=== PATIENT | male | born 1960 | race Caucasian/White ===

== ENCOUNTER → 2016-10-17 | Outpatient (CLI) | payer MEDICARE, OTHER ==
[2016-10-17 14:22] VITALS: BP 107/62; PULSE 78; RESP 16; TEMP 98.6
--- NOTE | 2016-10-17 14:36 | P.PN ---
Progress Note - Text Patient returns for followup for chronic back pain with radiation to both legs. Patient recently underwent LESI x 2, which provided some relief for 3-4 weeks ' interval apiece, but primarily helped with patient's ability to walk and did not help significantly with his pain. Patient continues on [place] medications for pain from Dr. Dillard with good relief. Patient denies adverse drug effects from medications. Today, pt denies new-onset weakness, bowel/bladder incontinence, or any other signs or symptoms of cauda equina syndrome. There are no signs of acute intoxication, and no indications of medication diversion or overuse. In addition to above, 13-point review of systems is also negative for chest pain , shortness of breath, changes in vision, changes in hearing, new onset weakness , abdominal pain, diarrhea, extreme fatigue, malaise, fever, skin changes, homicidal or suicidal ideation, or bowel or bladder incontinence. Vital Signs: Reviewed in EMR Gen: WDWN, AAOx3, NAD HEENT: NCAT, EOMI, hearing grossly normal Pulm: resp unlabored Abd: soft, NT, ND Neck: supple, trachea midline ROM in flexion lumbar spine: reduced ROM in extension lumbar spine: reduced Lumbar paravertebral tenderness: + Facet loading: ++ bilateral SI joint tenderness: + North's test: ++ bilateral Straight leg raise: + RLE Neuro: CN II-XII grossly intact, muscle strength lower extremities PRESERVED Imaging: Reviewed in EMR Assessment: 1. lumbar radiculopathy 2. sacroiliitis 3. lumbar DDD Plan: 1. Explanation: Opioid and psychological risk scores were reviewed. Diagnoses , prognoses, and multiple treatment options including but not limited to physical therapy, interventional therapies, adjuvant medical therapies, narcotic medication therapies, and surgery were discussed with the patient and all questions were answered to the patient's satisfaction. 2. Opioid agreement: no opioids prescribed 3. Counseling: The patient was counseled extensively on SMOKING CESSATION, BODY MASS INDEX, EXERCISE. Specifically, the patient was instructed regarding the importance of smoking cessation, obesity, and exercise in the context of both chronic pain and overall health. 4. Procedures: bilateral SIJ injection x 2 5. Consultations: None 6. Investigations: None 7. Medications: none for now; if Dr. Dillard does not want to prescribe medications anymore, I told patient we would not be able to give him more than 3 [place] pills per day. Patient verbalized understanding. 8. Disposition: f/u for procedure as scheduled PQRS measures: 1-Patient's medications are documented in the chart. 2-Tobacco use is negative 3-Patient has not had a pneumococcal vaccine. 4-Advanced care planning discussed, patient unable to give. 5-Opioid contract NOT signed with the patient as he gets medications from Dr. Dillard. 6-Pain positive, follow-up visit or procedure scheduled 7-Patient's blood pressure measured and documented, and WNL. 8-Patient's weight was measured, and body mass index ABOVE the normal limits, and counseling was done. Patient instructed to follow up with PCP. 9-Patient WAS NOT identified as an unhealthy alcohol user.
== END | disposition home or self-care (01) ==
LOC: PNWHC3 13:08
PROVIDERS: ATTEND Anesthesiology
DX: M54.16 Radiculopathy, lumbar region (principal); M46.1 Sacroiliitis, not elsewhere classified; M51.36 Other intervertebral disc degeneration, lumbar region; Z79.899 Other long term (current) drug therapy
CPT/HCPCS: 99211

== ENCOUNTER → 2016-10-26 | Outpatient (CLI) | payer MEDICARE, OTHER ==
[2016-10-26 09:36] LABS: CH 29.5; CHCM 31.7; HCT 40.2 % (39.0-53.0); HDW 3.22; HGB 12.7 gm/dL (13.0-17.5); Hypochromasia Slight; MCH 29.6 pg (25.0-35.0); MCHC 31.6 g/dL (31.0-37.0); MCV 93.5 fL (80.0-100.0); Mean Platelet Volume 6.7; RDW 15.6 % (11.5-15.5); WBC 13.5 k/uL (3.8-10.6)
[2016-10-26 12:29] LABS: Erythrocyte Sedimentation Rate 72 mm/hr (0-15)
[2016-10-29 16:07] LABS: Gliadin AB IgA, Deaminated 4 UNITS (<20); Gliadin AB IgG, Deaminated 4 UNITS (<20)
== END | disposition home or self-care (01) ==
LOC: LABWHC1 09:06
PROVIDERS: ATTEND Internal Medicine Gastroenterology
DX: K52.9 Noninfective gastroenteritis and colitis, unspecified (principal)
CPT/HCPCS: 36415; 83516; 85027; 85652; 86140

== ENCOUNTER → 2016-11-13 | Outpatient (CLI) | payer MEDICARE, OTHER ==
--- NOTE | 2016-11-13 14:31 | XR ---
EXAM TYPE: LUMBAR SPINE X RAY SERIES COMPARISON: 06/25/2015 HISTORY: Pain FINDINGS: Postsurgical changes at L3-L4 with minimal anterolisthesis of L4 on L5. Postsurgical changes also L4- L5. There is loss of disc space at both levels Severe degenerative disc disease at L5-S1. Retrolisthe sis L2 on L3 and L3 on L4 is stable. Transpedicular screw at L4 near the disc space level along the u pper margin of the L4 vertebral body. Correlate clinically. IMPRESSION: 1. Extensive postoperative changes with a minimal anterolisthesis of L4 on L5. See above.
== END | disposition home or self-care (01) ==
LOC: RADXRMAIN 13:46
DX: M43.16 Spondylolisthesis, lumbar region (principal); Z98.890 Other specified postprocedural states
CPT/HCPCS: 72100

== ENCOUNTER → 2016-11-27 | Outpatient (CLI) | payer MEDICARE, OTHER ==
[2016-11-27 11:20] LABS: EKG EKG PERFORMED
[2016-11-27 11:43] LABS: Basophils % (A) 0 %; CH 28.6; CHCM 30.7; Eosinophils % (A) 0 %; HCT 39.3 % (39.0-53.0); HDW 2.95; HGB 11.9 gm/dL (13.0-17.5); Hypochromasia Moderate; Luc # (Auto) 0.17; Luc % (Auto) 2; Lymphocytes # (A) 1.2 k/uL (1.0-4.8); Lymphocytes % (A) 11 %; MCH 28.2 pg (25.0-35.0); MCHC 30.2 g/dL (31.0-37.0); MCV 93.6 fL (80.0-100.0); Mean Platelet Volume 6.2; Monocytes # (A) 0.5 k/uL (0-1.0); Monocytes % (A) 4 %; Neutrophils # (A) 8.9 k/uL (1.3-7.7); Neutrophils % (A) 83 %; RDW 14.9 % (11.5-15.5); WBC 10.8 k/uL (3.8-10.6); WBC (Perox) 11.31
[2016-11-27 11:58] LABS: INR 0.9 (<1.1); Prothrombin Time 9.6 sec (9.0-12.0)
[2016-11-27 12:00] LABS: ALT 63 U/L (21-72); AST 32 U/L (17-59); Alkaline Phosphatase 71 U/L (38-126); Anion Gap 11 mmol/L; Appearance,Urine Clear (Clear); Bilirubin,Urine Negative (Negative); Blood Urea Nitrogen 19 mg/dL (9-20); Calcium 9.1 mg/dL (8.4-10.2); Carbon Dioxide 26 mmol/L (22-30); Chloride 99 mmol/L (98-107); Glucose 174 mg/dL (74-99); Glucose,Urine (UA) Negative (Negative); Ketones,Urine Negative (Negative); Leukocyte Esterase,Urine Negative (Negative); Nitrite,Urine Negative (Negative); Non-African American GFR(MDRD) >60 (>60 ml/min/1.73 sqM); PH, Urine 5.5 (5.0-8.0); Potassium 4.5 mmol/L (3.5-5.1); Protein,Urine Negative (Negative); Sodium 136 mmol/L (137-145); Specific Gravity,Urine 1.003 (1.001-1.035); Total Bilirubin 0.4 mg/dL (0.2-1.3); Total Protein 6.4 g/dL (6.3-8.2); UA Billing (MACRO vs. MICRO) CHEM; Urobilinogen,Urine <2.0 mg/dL (<2.0)
== END | disposition home or self-care (01) ==
LOC: LABWHC1 11:06
DX: M48.00 Spinal stenosis, site unspecified (principal); Z79.01 Long term (current) use of anticoagulants
CPT/HCPCS: 36415; 80053; 81003; 85025; 85610; 85730; 93005

== ENCOUNTER 2016-12-10 14:42 | Emergency (ER) | payer MEDICARE, OTHER ==
[2016-12-10] MEDS ORDERED: ACETAMINOPHEN IV (For NPO) 1,000 MG in EMPTY BAG 1 BAG IVPB ONE (14:51)
[2016-12-10] MEDS ORDERED: SODIUM CHLORIDE 0.9% 1,000 ML IV STA (14:51)
[2016-12-10] MEDS ORDERED: KETOROLAC 30 MG/ML 1 ML VIAL IVP STA (14:51)
--- NOTE | 2016-12-10 14:55 | ED ---
Back Pain HPI - General Chief Complaint: Back Pain/Injury Stated Complaint: Back Pain/Post Op Complications Time Seen by Provider: 12/10/16 14:46 Source: patient, EMS, RN notes reviewed Limitations: no limitations - History of Present Illness Initial Comments: 56-year-old male presents to the emergency department with a chief complaint of back pain. Patient had back surgery done at [facility] on December [address] Saldana. Patient states he was discharged from the hospital yesterday to home. Patient states she was discharged with [place] pain medication. Patient states that he continues to have back pain. Patient states he's continued to have back pain ever since the procedure initially began. Patient states that he cannot tolerate the pain anymore home and he wants senior living placement or rehab placement. Patient states that he hasn't noticed any fevers chills at home. Patient denies any cough cold runny nose. Patient states that they were concerned due to the increased pain and they thought that they should be seen. Patient denies any recent fever, chills, shortness of breath, chest pain, abdominal pain, nausea vomiting, numbness or tingling, dysuria or hematuria, constipation or diarrhea, headaches or visual changes, or any other current symptoms. - Related Data Home Medications Medication Instructions Recorded Confirmed Montelukast [Singulair] 10 mg PO DAILY 06/08/14 12/10/16 Paliperidone [Invega] 6 mg PO DAILY 06/08/14 12/10/16 traZODone HCL [traZODone] 150 mg PO HS 06/08/14 12/10/16 Losartan [Cozaar] 50 mg PO DAILY 07/09/15 12/10/16 rOPINIRole HCL [Requip] 1 mg PO HS 07/09/15 12/10/16 Pravastatin Sodium [Pravachol] 20 mg PO HS 08/27/15 12/10/16 Rivaroxaban [Xarelto] 20 mg PO DAILY 12/21/15 12/10/16 Cetirizine HCl [Zyrtec] 10 mg PO DAILY 12/10/16 12/10/16 Diazepam [Valium] 5 mg PO Q6H PRN 12/10/16 12/10/16 Fluticasone/Salmeterol [Advair Hfa 2 puff INHALATION RT-BID 12/10/16 12/10/16 230-21 Mcg Inhaler] Furosemide [Lasix] 20 mg PO DAILY 12/10/16 12/10/16 Loperamide [Imodium] 2 mg PO QID 12/10/16 12/10/16 Omeprazole 20 mg PO DAILY 12/10/16 12/10/16 Roflumilast [Daliresp] 500 mcg PO DAILY 12/10/16 12/10/16 Umeclidinium Rock [Incruse 1 puff INHALATION RT-DAILY 12/10/16 12/10/16 Ellipta] oxyCODONE-APAP 10-325MG [Percocet 1 - 2 tab PO Q4H PRN 12/10/16 12/10/16 10-325 mg] predniSONE 20 mg PO DAILY 12/10/16 12/10/16 Allergies Allergy/AdvReac Type Severity Reaction Status Date / Time ibuprofen [From Motrin] Allergy Unknown Verified 12/10/16 15:55 Penicillins Allergy "PASSED Verified 12/10/16 15:55 OUT", SOB Review of Systems ROS Statement: Those systems with pertinent positive or pertinent negative responses have been documented in the HPI. ROS Other: All systems not noted in ROS Statement are negative. Past Medical History Past Medical History: Asthma, COPD, Deep Vein Thrombosis (DVT), GERD/Reflux, Hyperlipidemia, Hypertension, Musculoskeletal Disorder, Pneumonia, Pulmonary Embolus (PE) Additional Past Medical History / Comment(s): uses oxygen @ home at night time. Pt. states he has blood clots in lungs - sees Dr. Ralph for this. Pt. states in July he passed out at work and was in a coma for three days; was hospitalized and stated it wasn't found out why he passed out but was started on blood thinners. States he spent 1 month in a senior living re-learning to walk. RECENT HOSPITALIZATION AT [facility] FOR PNEUMONIA AND "INTESTINE INFECTION". History of Any Multi-Drug Resistant Organisms: C-DIFF Date of last positivie culture/infection: OCTOBER 2016 MDRO Source:: INTESTINE Past Surgical History: Back Surgery, Hernia Repair, Orthopedic Surgery Additional Past Surgical History / Comment(s): neck & shoulder & elbow surg., STOMACH SURGERY. Back surgery x 4 - last surgery February 2015 Past Anesthesia/Blood Transfusion Reactions: No Reported Reaction Additional Past Anesthesia/Blood Transfusion Reaction / Comment(s): couldn't urinate after a surgery, Past Psychological History: Anxiety, Schizophrenia Smoking Status: Former smoker Past Alcohol Use History: None Reported Additional Past Alcohol Use History / Comment(s): QUIT SMOKING JUL 2014, STARTED SMOKING AT AGE 14/ 1PPD Past Drug Use History: None Reported - Past Family History Mother History Unknown: Yes Family Medical History: Cancer, CVA/TIA Additional Family Medical History / Comment(s): breast cancer General Exam - General Exam Comments Initial Comments: General: The patient is awake and alert, in no distress, and does not appear acutely ill. Eye: Pupils are equal, round and reactive to light, extra-ocular movements are intact; there is normal conjunctiva bilaterally. No signs of icterus. Ears, nose, mouth and throat: There are moist mucous membranes and no oral lesions. Neck: The neck is supple, there is no tenderness. Cardiovascular: There is a regular rate and rhythm. No murmur, rub or gallop is appreciated. Respiratory: Lungs are clear to auscultation, respirations are non-labored, breath sounds are equal. No wheezes, stridor, rales, or rhonchi. Gastrointestinal: Soft, non-distended, non-tender abdomen without masses or organomegaly noted. There is no rebound or guarding present. No CVA tenderness. Bowel sounds are unremarkable. Back: Inches and through the upper lumbar lower thoracic spine there is some bleeding noted no induration redness. There is no tenderness to palpation in the midline. There is no obvious deformity. No rashes noted. Musculoskeletal: Normal ROM, no tenderness, There is no pedal edema. There is no calf tenderness or swelling. Sensation intact. Pulses equal bilaterally 2+. Neurological: CN II-XII intact, There are no obvious motor or sensory deficits. Coordination appears grossly intact. Speech is normal. Skin: Skin is warm and dry and no rashes or lesions are noted. Psychiatric: Cooperative, appropriate mood & affect, normal judgment. Limitations: no limitations Course Vital Signs 12/10/16 12/10/16 12/10/16 14:44 15:47 16:36 Temperature 99.0 F 98.3 F Pulse Rate 113 H 110 H 101 H Respiratory 112 H 16 18 Rate Blood Pressure 112/60 114/62 O2 Sat by Pulse 92 L 97 95 Oximetry 12/10/16 17:30 Temperature Pulse Rate 99 Respiratory 18 Rate Blood Pressure O2 Sat by Pulse 95 Oximetry Medical Decision Making - Medical Decision Making 56-year-old male presents emergency Department chief complaint of back pain. At this time patient's laboratory is reviewed that does show a mild monica and a mildly elevated white blood cell count. Patient was checked for signs of infection that there does not appear to be any he has some leaking from the incision site. At this time patient continues to request for pain medication due to the fact that his pain is 10 out of 10. Patient did present tachycardic however after receiving the medication his heart rate did decrease. At this time Dr. Dillard was consulted via telephone about the patient's case. At this time he states Patient Take One to 2 of His Percocet As Needed for Pain and Continue the Valium. Patient Has Been Taking These. HEENT We Discussed We Will Give Him 1 More Dose of Pain Medication. Follow-Up with Local to the Office in the Morning to Set up for Home Nursing and Home PT. The Patient Stated He Understood He Is in Agreement Plan and All Questions Have Been Answered. Patient Will Be Discharged. - Lab Data Result diagrams: 12/10/16 15:05 12/10/16 15:05 Lab Results 12/10/16 12/10/16 12/10/16 Range/Units 15:05 15:05 15:05 WBC 10.9 H (3.8-10.6) k/uL RBC 4.05 L (4.30-5.90) m/uL Hgb 11.3 L (13.0-17.5) gm/dL Hct 35.6 L (39.0-53.0) % MCV 87.8 D (80.0-100.0) fL MCH 27.8 (25.0-35.0) pg MCHC 31.7 (31.0-37.0) g/dL RDW 14.6 (11.5-15.5) % Plt Count 292 (150-450) k/uL Neutrophils % 73 % Lymphocytes % 19 % Monocytes % 6 % Eosinophils % 0 % Basophils % 1 % Neutrophils # 7.9 H (1.3-7.7) k/uL Lymphocytes # 2.0 (1.0-4.8) k/uL Monocytes # 0.6 (0-1.0) k/uL Eosinophils # 0.0 (0-0.7) k/uL Basophils # 0.1 (0-0.2) k/uL Sodium 133 L (137-145) mmol/L Potassium 4.2 (3.5-5.1) mmol/L Chloride 95 L (98-107) mmol/L Carbon Dioxide 27 (22-30) mmol/L Anion Gap 11 mmol/L BUN 16 (9-20) mg/dL Creatinine 0.65 L (0.66-1.25) mg/dL Est GFR (MDRD) Af Amer >60 (>60 ml/min/1.73 sqM) Est GFR (MDRD) Non-Af >60 (>60 ml/min/1.73 sqM) Glucose 104 H (74-99) mg/dL Plasma Lactic Acid Carlos 1.5 (0.7-2.0) mmol/L Calcium 9.0 (8.4-10.2) mg/dL Total Bilirubin 0.7 (0.2-1.3) mg/dL AST 35 (17-59) U/L ALT 30 (21-72) U/L Alkaline Phosphatase 47 (38-126) U/L Total Protein 6.3 (6.3-8.2) g/dL Albumin 3.3 L (3.5-5.0) g/dL Urine Color Urine Appearance (Clear) Urine pH (5.0-8.0) Ur Specific [place] (1.001-1.035) Urine Protein (Negative) Urine Glucose (UA) (Negative) Urine Ketones (Negative) Urine Blood (Negative) Urine Nitrate (Negative) Urine Bilirubin (Negative) Urine Urobilinogen (<2.0) mg/dL Ur Leukocyte Esterase (Negative) Urine Opiates Screen (NotDetected) Ur Oxycodone Screen (NotDetected) Urine Methadone Screen (NotDetected) Ur Propoxyphene Screen (NotDetected) Ur Barbiturates Screen (NotDetected) U Tricyclic Antidepress (NotDetected) Ur Phencyclidine Scrn (NotDetected) Ur Amphetamines Screen (NotDetected) U Methamphetamines Scrn (NotDetected) U Benzodiazepines Scrn (NotDetected) Urine Cocaine Screen (NotDetected) U Marijuana (THC) Screen (NotDetected) 12/10/16 Range/Units 15:05 WBC (3.8-10.6) k/uL RBC (4.30-5.90) m/uL Hgb (13.0-17.5) gm/dL Hct (39.0-53.0) % MCV (80.0-100.0) fL MCH (25.0-35.0) pg MCHC (31.0-37.0) g/dL RDW (11.5-15.5) % Plt Count (150-450) k/uL Neutrophils % % Lymphocytes % % Monocytes % % Eosinophils % % Basophils % % Neutrophils # (1.3-7.7) k/uL Lymphocytes # (1.0-4.8) k/uL Monocytes # (0-1.0) k/uL Eosinophils # (0-0.7) k/uL Basophils # (0-0.2) k/uL Sodium (137-145) mmol/L Potassium (3.5-5.1) mmol/L Chloride (98-107) mmol/L Carbon Dioxide (22-30) mmol/L Anion Gap mmol/L BUN (9-20) mg/dL Creatinine (0.66-1.25) mg/dL Est GFR (MDRD) Af Amer (>60 ml/min/1.73 sqM) Est GFR (MDRD) Non-Af (>60 ml/min/1.73 sqM) Glucose (74-99) mg/dL Plasma Lactic Acid Carlos (0.7-2.0) mmol/L Calcium (8.4-10.2) mg/dL Total Bilirubin (0.2-1.3) mg/dL AST (17-59) U/L ALT (21-72) U/L Alkaline Phosphatase (38-126) U/L Total Protein (6.3-8.2) g/dL Albumin (3.5-5.0) g/dL Urine Color Light Yellow Urine Appearance Clear (Clear) Urine pH 5.5 (5.0-8.0) Ur Specific [place] 1.007 (1.001-1.035) Urine Protein Negative (Negative) Urine Glucose (UA) Negative (Negative) Urine Ketones 1+ H (Negative) Urine Blood Negative (Negative) Urine Nitrate Negative (Negative) Urine Bilirubin Negative (Negative) Urine Urobilinogen <2.0 (<2.0) mg/dL Ur Leukocyte Esterase Negative (Negative) Urine Opiates Screen Not Detected (NotDetected) Ur Oxycodone Screen Detected H (NotDetected) Urine Methadone Screen Not Detected (NotDetected) Ur Propoxyphene Screen Not Detected (NotDetected) Ur Barbiturates Screen Not Detected (NotDetected) U Tricyclic Antidepress Not Detected (NotDetected) Ur Phencyclidine Scrn Not Detected (NotDetected) Ur Amphetamines Screen Not Detected (NotDetected) U Methamphetamines Scrn Not Detected (NotDetected) U Benzodiazepines Scrn Detected H (NotDetected) Urine Cocaine Screen Not Detected (NotDetected) U Marijuana (THC) Screen Not Detected (NotDetected) - Radiology Data Radiology results: report reviewed, image reviewed Disposition Clinical Impression: Mid back pain Disposition: HOME SELF-CARE Condition: Stable Instructions: Acute Low Back Pain (ED) Additional Instructions: Please use medication as discussed. Please follow up with family doctor if symptoms have not improved over the next two days. Please return to the emergency room if your symptoms increase or worsen or for any other concerns. Please call Dr. Dillard's office in the morning and discuss your situation with [facility]. Referrals: Corey Adams MD [Primary Care Provider] - 1-2 days Time of Disposition: 18:13
[2016-12-10 15:25] LABS: Appearance,Urine Clear (Clear); Basophils # (A) 0.1 k/uL (0-0.2); Basophils % (A) 1 %; Bilirubin,Urine Negative (Negative); CH 29.1; CHCM 33.2; Eosinophils % (A) 0 %; Glucose,Urine (UA) Negative (Negative); HCT 35.6 % (39.0-53.0); HDW 3.16; HGB 11.3 gm/dL (13.0-17.5); Ketones,Urine 1+ (Negative); Leukocyte Esterase,Urine Negative (Negative); Luc % (Auto) 2; Lymphocytes % (A) 19 %; MCH 27.8 pg (25.0-35.0); MCHC 31.7 g/dL (31.0-37.0); Monocytes # (A) 0.6 k/uL (0-1.0); Monocytes % (A) 6 %; Neutrophils # (A) 7.9 k/uL (1.3-7.7); Neutrophils % (A) 73 %; Nitrite,Urine Negative (Negative); PH, Urine 5.5 (5.0-8.0); Protein,Urine Negative (Negative); RBC 4.05 m/uL (4.30-5.90); RDW 14.6 % (11.5-15.5); Specific Gravity,Urine 1.007 (1.001-1.035); UA Billing (MACRO vs. MICRO) CHEM; Urobilinogen,Urine <2.0 mg/dL (<2.0); WBC 10.9 k/uL (3.8-10.6); WBC (Perox) 11.45
[2016-12-10 15:31] LABS: MCV 87.8 fL (80.0-100.0)
[2016-12-10 15:34] LABS: ALT 30 U/L (21-72); AST 35 U/L (17-59); Alkaline Phosphatase 47 U/L (38-126); Anion Gap 11 mmol/L; Blood Urea Nitrogen 16 mg/dL (9-20); Carbon Dioxide 27 mmol/L (22-30); Chloride 95 mmol/L (98-107); Glucose 104 mg/dL (74-99); Non-African American GFR(MDRD) >60 (>60 ml/min/1.73 sqM); Potassium 4.2 mmol/L (3.5-5.1); Sodium 133 mmol/L (137-145); Total Bilirubin 0.7 mg/dL (0.2-1.3); Total Protein 6.3 g/dL (6.3-8.2)
--- NOTE | 2016-12-10 15:40 | XR ---
EXAMINATION TYPE: XR chest 2V DATE OF EXAM: 12/10/2016 3:25 PM COMPARISON: NONE TECHNIQUE: PA and lateral views submitted. HISTORY: Cough FINDINGS: The lungs are clear and there is no pneumothorax, pleural effusion, or focal pneumonia. Postsurgica l change overlying the cervical spine. Hypertrophic and degenerative changes spine. Vague nodular den sity right upper lobe. IMPRESSION: 1. No acute process. However, there is a vague nodular density right upper lobe. Consider apical lord otic view of the chest or CT chest.
[2016-12-10 15:48] VITALS: TEMP 98.3
[2016-12-10] MEDS ORDERED: HYDROmorphone 1 MG/ML 1 ML SYRINGE IVP STA ×2 (15:49→18:14)
[2016-12-10 16:37] VITALS: BP 114/62; RESP 18
[2016-12-10 17:31] VITALS: PULSE 99
== END 2016-12-10 18:32 | disposition home or self-care (01) ==
LOC: EC 14:42
DX: G89.18 Other acute postprocedural pain (principal); M54.9 Dorsalgia, unspecified; Z79.899 Other long term (current) drug therapy; I10 Essential (primary) hypertension; E78.5 Hyperlipidemia, unspecified; Z79.01 Long term (current) use of anticoagulants; Z79.51 Long term (current) use of inhaled steroids; K21.9 Gastro-esophageal reflux disease without esophagitis; Z88.0 Allergy status to penicillin; Z88.6 Allergy status to analgesic agent; J44.9 Chronic obstructive pulmonary disease, unspecified; Z86.718 Personal history of other venous thrombosis and embolism; Z86.711 Personal history of pulmonary embolism; Z99.81 Dependence on supplemental oxygen; Z86.19 Personal history of other infectious and parasitic diseases; Z87.891 Personal history of nicotine dependence; F41.9 Anxiety disorder, unspecified; F20.9 Schizophrenia, unspecified
CPT/HCPCS: 36415; 80053; 83605; 85025; 81003; 80306; 71020; 96365; 96375 ×2; 99284; J1885; J1170; J0131

== ENCOUNTER 2016-12-17 12:10 | Inpatient (IN) | payer MEDICARE, OTHER ==
[2016-12-17] MEDS ORDERED: SODIUM CHLORIDE 0.9% 1,000 ML IV STA (13:34)
[2016-12-17] MEDS ORDERED: MORPHINE SULFATE 4 MG/ML SYRINGE IV STA (13:34)
[2016-12-17 13:58] LABS: Appearance,Urine Clear (Clear); Bilirubin,Urine Negative (Negative); Glucose,Urine (UA) Negative (Negative); Ketones,Urine 1+ (Negative); Leukocyte Esterase,Urine Negative (Negative); Nitrite,Urine Negative (Negative); PH, Urine 5.5 (5.0-8.0); Particle Count 1150; Protein,Urine Negative (Negative); RBC,Urine <1 /hpf (0-5); Specific Gravity,Urine 1.006 (1.001-1.035); UA Billing (MACRO vs. MICRO) MICRO; Urobilinogen,Urine <2.0 mg/dL (<2.0); WBC,Urine 2 /hpf (0-5)
[2016-12-17 13:59] LABS: Basophils % (A) 0 %; CH 28.4; CHCM 32.4; Eosinophils % (A) 0 %; HCT 31.9 % (39.0-53.0); HDW 3.32; HGB 10.1 gm/dL (13.0-17.5); Hypochromasia Slight; Luc # (Auto) 0.25; Luc % (Auto) 2; Lymphocytes # (A) 1.9 k/uL (1.0-4.8); Lymphocytes % (A) 18 %; MCH 27.9 pg (25.0-35.0); MCHC 31.7 g/dL (31.0-37.0); MCV 88.1 fL (80.0-100.0); Mean Platelet Volume 7.8; Monocytes # (A) 0.4 k/uL (0-1.0); Monocytes % (A) 4 %; Neutrophils # (A) 7.7 k/uL (1.3-7.7); Neutrophils % (A) 75 %; RBC 3.63 m/uL (4.30-5.90); WBC 10.3 k/uL (3.8-10.6); WBC (Perox) 10.64
--- NOTE | 2016-12-17 14:10 | XR ---
EXAMINATION TYPE: XR chest 2V DATE OF EXAM: 12/17/2016 2:02 PM COMPARISON: 12/10/2016 HISTORY: Shortness of breath TECHNIQUE: Frontal and lateral views of the chest are obtained. FINDINGS: Scattered senescent parenchymal changes noted. Hyperinflation compatible with COPD. No evidence for infiltrate. No evidence for atelectasis. Heart size is stable. Mediastinal structures are stable and grossly unremarkable. No evidence for hilar prominence. Degenerative changes dorsal spine. IMPRESSION: 1. No evidence for acute pulmonary disease.
[2016-12-17 14:13] LABS: ALT 67 U/L (21-72); AST 250 U/L (17-59); Alkaline Phosphatase 80 U/L (38-126); Anion Gap 8 mmol/L; Blood Urea Nitrogen 11 mg/dL (9-20); Calcium 8.7 mg/dL (8.4-10.2); Carbon Dioxide 28 mmol/L (22-30); Chloride 99 mmol/L (98-107); Glucose 82 mg/dL (74-99); Non-African American GFR(MDRD) >60 (>60 ml/min/1.73 sqM); Potassium 3.7 mmol/L (3.5-5.1); Sodium 135 mmol/L (137-145); Total Bilirubin 0.6 mg/dL (0.2-1.3); Total Protein 5.5 g/dL (6.3-8.2)
--- NOTE | 2016-12-17 14:29 | CT ---
EXAMINATION TYPE: CT lumbar spine wo con DATE OF EXAM: 12/17/2016 2:19 PM COMPARISON: NONE HISTORY: Low back pain and inability to walk CT DLP: 1039 mGycm CONTRAST: Unenhanced CT of the lumbar spine is performed . Lack of contrast limits evaluation Unenhanced CT of the lumbar spine was performed. Bone and soft tissue window settings are submitted as well as coronal and sagittal reconstructions. L1-L2: Normal disc space height. No disc herniation protrusion or central stenosis. No facet joint arthropathy. No evidence for foraminal encroachment. L2-L3: Postoperative changes of lumbar laminectomy. Pedicular screws in place. Streak artifact limits evaluation. No obvious disc herniation or central stenosis on this limited study. L3-L4: Changes of fusion and lumbar laminectomy. Previous screw defects noted. No obvious recurrent h erniation or central stenosis. L4-L5: Changes of fusion and lumbar laminectomy. Intervertebral body spacer noted. No obvious recur rent herniation or central stenosis. 3 mm anterolisthesis L4 and L5. L5-S1: Changes of fusion and lumbar laminectomy. No obvious recurrent herniation or central stenosi s. No paraspinal masses are identified. Lumbar segments are free of fracture. No bony destructive proce ss identified. No paraspinal collection seen. Postoperative changes posterior soft tissues. IMPRESSION: 1. Excessive postsurgical changes of the lumbar laminectomy and fusion. No obvious recurrent herniati on or stenosis on this limited study.
--- NOTE | 2016-12-17 15:21 | ED ---
Back Pain HPI - General Chief Complaint: Back Pain/Injury Stated Complaint: Weakness Time Seen by Provider: 12/17/16 13:13 Source: patient, EMS Limitations: no limitations - History of Present Illness Initial Comments: Planing about the back pain, a stating that he had a laminectomy done by Dr. Grimaldo in [place], is not sure whether it was done at [facility] or [facility]. He said he felt few days after surgery that made his pain worse. He also planing about him running out of his pain medications. Denies any head injury no chest pain no shortness of breath no abdominal pain no frequency urgency dysuria no bowel or bladder dysfunction. He is concerned he may have fractured something in his lower back - Related Data Home Medications Medication Instructions Recorded Confirmed Montelukast [Singulair] 10 mg PO DAILY 06/08/14 12/17/16 Paliperidone [Invega] 6 mg PO DAILY 06/08/14 12/17/16 traZODone HCL [traZODone] 150 mg PO HS 06/08/14 12/17/16 Losartan [Cozaar] 50 mg PO DAILY 07/09/15 12/17/16 rOPINIRole HCL [Requip] 1 mg PO HS 07/09/15 12/17/16 Pravastatin Sodium [Pravachol] 20 mg PO HS 08/27/15 12/17/16 Rivaroxaban [Xarelto] 20 mg PO DAILY 12/21/15 12/17/16 Diazepam [Valium] 5 mg PO Q6H PRN 12/10/16 12/17/16 Fluticasone/Salmeterol [Advair Hfa 2 puff INHALATION RT-BID 12/10/16 12/17/16 230-21 Mcg Inhaler] Furosemide [Lasix] 20 mg PO DAILY 12/10/16 12/17/16 Loperamide [Imodium] 2 mg PO QID 12/10/16 12/17/16 Omeprazole 20 mg PO DAILY 12/10/16 12/17/16 Roflumilast [Daliresp] 500 mcg PO DAILY 12/10/16 12/17/[address]cl[address] [place] [Incruse 1 puff INHALATION RT-DAILY 12/10/16 12/17/16 Ellipta] oxyCODONE-APAP 10-325MG [Percocet 1 - 2 tab PO Q4H PRN 12/10/16 12/17/16 10-325 mg] predniSONE 20 mg PO DAILY 12/10/16 12/17/16 ALPRAZolam [Xanax] 0.25 mg PO DAILY PRN 12/17/16 12/17/16 Albuterol Sulfate [Proair Hfa] 2 puff INHALATION RT-QID PRN 12/17/16 12/17/16 Baclofen [Lioresal] 20 mg PO BID 12/17/16 12/17/16 Budesonide-Formot 160-4.5 Mcg 2 puff INHALATION RT-BID 12/17/16 12/17/16 [Symbicort 160-4.5 Mcg Inhaler] Cetirizine HCl [Zyrtec] 10 mg PO DAILY 12/17/16 12/17/16 Citalopram Hydrobromide [CeleXA] 20 mg PO DAILY 12/17/16 12/17/16 Famotidine [Pepcid] 20 mg PO DAILY 12/17/16 12/17/16 Fluticasone Nasal [place] [Flonase 2 spr EA NOSTRIL DAILY 12/17/16 12/17/16 Nasal [place]] Levothyroxine Sodium [Synthroid] 50 mcg PO DAILY 12/17/16 12/17/16 Melatonin 3 mg PO HS 12/17/16 12/17/16 Sertraline [Zoloft] 50 mg PO DAILY 12/17/16 12/17/16 Theophylline 24 Hour [Yoav-24] 200 mg PO BID 12/17/16 12/17/16 hydrOXYzine HCL [Atarax] 10 mg PO TID 12/17/16 12/17/16 Previous Rx's Medication Instructions Recorded oxyCODONE HCL/ACETAMINOPHEN 1 tab PO Q8HR PRN #15 tab 12/17/16 [Percocet 7.5-325 mg] Allergies Allergy/AdvReac Type Severity Reaction Status Date / Time ibuprofen [From Motrin] Allergy Unknown Verified 12/10/16 15:55 Penicillins Allergy "PASSED Verified 12/10/16 15:55 OUT", SOB Review of Systems ROS Statement: Those systems with pertinent positive or pertinent negative responses have been documented in the HPI. ROS Other: All systems not noted in ROS Statement are negative. Past Medical History Past Medical History: Asthma, COPD, Deep Vein Thrombosis (DVT), GERD/Reflux, Hyperlipidemia, Hypertension, Musculoskeletal Disorder, Pneumonia, Pulmonary Embolus (PE) Additional Past Medical History / Comment(s): uses oxygen @ home at night time. Pt. states he has blood clots in lungs - sees Dr. Ralph for this. Pt. states in July he passed out at work and was in a coma for three days; was hospitalized and stated it wasn't found out why he passed out but was started on blood thinners. States he spent 1 month in a skilled nursing re-learning to walk. RECENT HOSPITALIZATION AT [facility] FOR PNEUMONIA AND "INTESTINE INFECTION". History of Any Multi-Drug Resistant Organisms: C-DIFF Date of last positivie culture/infection: OCTOBER 2016 MDRO Source:: INTESTINE Past Surgical History: Back Surgery, Hernia Repair, Orthopedic Surgery Additional Past Surgical History / Comment(s): neck & shoulder & elbow surg., STOMACH SURGERY. Back surgery x 4 - last surgery February 2015 Past Anesthesia/Blood Transfusion Reactions: No Reported Reaction Additional Past Anesthesia/Blood Transfusion Reaction / Comment(s): couldn't urinate after a surgery, Past Psychological History: Anxiety, Schizophrenia Smoking Status: Former smoker Past Alcohol Use History: None Reported Additional Past Alcohol Use History / Comment(s): QUIT SMOKING JUL 2014, STARTED SMOKING AT AGE 14/ 1PPD Past Drug Use History: None Reported - Past Family History Mother History Unknown: Yes Family Medical History: Cancer, CVA/TIA Additional Family Medical History / Comment(s): breast cancer General Exam - General Exam Comments Initial Comments: General: The patient is awake and alert, in no distress, poor hygiene Skin: Skin is warm and dry and no rashes or lesions are noted. Eye: Pupils are equal, round and reactive to light, extra-ocular movements are intact; there is normal conjunctiva bilaterally. Ears, nose, mouth and throat: There are moist mucous membranes and no oral lesions. Neck: The neck is supple, there is no tenderness or JVD. Cardiovascular: There is a regular rate and rhythm. No murmur, rub or gallop is appreciated. Respiratory: To auscultation bilateral, no wheezing no rhonchi no distress respiratory kim noticed Gastrointestinal: Soft, non-distended, non-tender abdomen without masses or organomegaly noted. There is no rebound or guarding present. Bowel sounds are unremarkable. Back: There is redness and now a recent scar in the lumbar region, no signs of infection over this over the scar area it seems healthy and has healed Musculoskeletal: Normal ROM, no tenderness, There is no pedal edema. There is no calf tenderness or swelling. No cords were appreciated. Neurological: CN II-XII intact, Cranial nerves III through XII are intact. There are no obvious motor or sensory deficits. Coordination appears grossly intact. Speech is normal. Psychiatric: Cooperative, appropriate mood & affect, normal judgment. Limitations: no limitations Course Vital Signs 12/17/16 12/17/16 12/17/16 12:21 14:49 15:11 Temperature 98.1 F Pulse Rate 116 H 114 H 117 H Respiratory 18 18 18 Rate Blood Pressure 116/68 128/64 121/72 O2 Sat by Pulse 95 95 96 Oximetry Is in was reassessed at 1500, his chest x-ray lumbar spine CAT scan CBC compressive metabolic panel urinalysis were reviewed and discussed with the patient, urinary urine drug screen was reviewed as well considering her lumbar spine CT is normal patient agrees to go home, is requesting for a taxi voucher 9 charge nurse would help him with that. Medical Decision Making - Lab Data Result diagrams: 12/17/16 13:49 12/17/16 13:49 Lab Results 12/17/16 12/17/16 12/17/16 Range/Units 13:49 13:49 13:49 WBC 10.3 (3.8-10.6) k/uL RBC 3.63 L (4.30-5.90) m/uL Hgb 10.1 L (13.0-17.5) gm/dL Hct 31.9 L (39.0-53.0) % MCV 88.1 (80.0-100.0) fL MCH 27.9 (25.0-35.0) pg MCHC 31.7 (31.0-37.0) g/dL RDW 15.0 (11.5-15.5) % Plt Count 354 (150-450) k/uL Neutrophils % 75 % Lymphocytes % 18 % Monocytes % 4 % Eosinophils % 0 % Basophils % 0 % Neutrophils # 7.7 (1.3-7.7) k/uL Lymphocytes # 1.9 (1.0-4.8) k/uL Monocytes # 0.4 (0-1.0) k/uL Eosinophils # 0.0 (0-0.7) k/uL Basophils # 0.0 (0-0.2) k/uL Hypochromasia Slight Sodium 135 L (137-145) mmol/L Potassium 3.7 (3.5-5.1) mmol/L Chloride 99 (98-107) mmol/L Carbon Dioxide 28 (22-30) mmol/L Anion Gap 8 mmol/L BUN 11 (9-20) mg/dL Creatinine 0.75 (0.66-1.25) mg/dL Est GFR (MDRD) Af Amer >60 (>60 ml/min/1.73 sqM) Est GFR (MDRD) Non-Af >60 (>60 ml/min/1.73 sqM) Glucose 82 (74-99) mg/dL Calcium 8.7 (8.4-10.2) mg/dL Total Bilirubin 0.6 (0.2-1.3) mg/dL AST 250 H (17-59) U/L ALT 67 (21-72) U/L Alkaline Phosphatase 80 (38-126) U/L Total Protein 5.5 L (6.3-8.2) g/dL Albumin 2.7 L (3.5-5.0) g/dL Urine Color Yellow Urine Appearance Clear (Clear) Urine pH 5.5 (5.0-8.0) Ur Specific [place] 1.006 (1.001-1.035) Urine Protein Negative (Negative) Urine Glucose (UA) Negative (Negative) Urine Ketones 1+ H (Negative) Urine Blood Small H (Negative) Urine Nitrate Negative (Negative) Urine Bilirubin Negative (Negative) Urine Urobilinogen <2.0 (<2.0) mg/dL Ur Leukocyte Esterase Negative (Negative) Urine RBC <1 (0-5) /hpf Urine WBC 2 (0-5) /hpf Urine Opiates Screen Detected H (NotDetected) Ur Oxycodone Screen Detected H (NotDetected) Urine Methadone Screen Not Detected (NotDetected) Ur Propoxyphene Screen Not Detected (NotDetected) Ur Barbiturates Screen Not Detected (NotDetected) U Tricyclic Antidepress Not Detected (NotDetected) Ur Phencyclidine Scrn Not Detected (NotDetected) Ur Amphetamines Screen Not Detected (NotDetected) U Methamphetamines Scrn Not Detected (NotDetected) U Benzodiazepines Scrn Detected H (NotDetected) Urine Cocaine Screen Not Detected (NotDetected) U Marijuana (THC) Screen Not Detected (NotDetected) Disposition Clinical Impression: Back pain Disposition: HOME SELF-CARE Condition: Good Instructions: Chronic Back Pain (ED) Prescriptions: oxyCODONE HCL/ACETAMINOPHEN [Percocet 7.5-325 mg] 1 tab PO Q8HR PRN #15 tab PRN Reason: Pain
[2016-12-17] MEDS ORDERED: ALPRAZolam 0.25 MG TAB PO PRN (16:13)
[2016-12-17] MEDS ORDERED: ALBUTEROL INHALER 60 PUFF/8 GM INHALER INHALATION PRN (16:13)
[2016-12-17] MEDS ORDERED: DIAZEPAM 5 MG TAB PO PRN (16:13)
[2016-12-17] MEDS ORDERED: SODIUM CHLORIDE 0.9% 1,000 ML IV SCH (16:15)
[2016-12-17] MEDS: HYDROmorphone 1 MG/ML 1 ML SYRINGE IVP PRN (16:29)
[2016-12-17] MEDS ORDERED: LORazepam 0.5 MG TAB PO PRN (18:52)
[2016-12-17] MEDS ORDERED: LEVOFLOXACIN 500MG-D5W PMX 500 MG in DEXTROSE/WATER 1 100ML.BAG IVPB SCH (20:00)
[2016-12-17] MEDS ORDERED: SYMBICORT 80-4.5 MCG INHALER INHALATION SCH (20:00)
[2016-12-17] MEDS ORDERED: SYMBICORT 160-4.5 MCG INHALER INHALATION SCH ×2 (20:00)
[2016-12-17] MEDS ORDERED: BUDESONIDE 0.5 MG/2 ML NEBU INHALATION SCH (20:00)
[2016-12-17] MEDS: FORMOTEROL FUMARATE 20 MCG/2 ML NEBU INHALATION SCH (20:01)
[2016-12-17] MEDS: IPRATROPIUM-ALBUTEROL 3 ML NEB INHALATION PRN (20:02)
[2016-12-17] MEDS: BUDESONIDE 1 MG/2 ML NEBU INHALATION SCH (20:02)
[2016-12-17] MEDS: oxyCODONE-APAP 10-325MG 1 EACH TAB PO PRN (20:04)
[2016-12-17] MEDS: methylPREDNISolone SOD SUCCI 125 MG/2 ML VIAL IV SCH ×2 (20:06→23:37)
[2016-12-17] MEDS: SODIUM CHLORIDE 0.9% 1,000 ML IV SCH (20:07)
[2016-12-17] MEDS: BACLOFEN 10 MG TAB PO SCH (20:07)
[2016-12-17] MEDS: MELATONIN 3 MG TABLET PO SCH (20:07)
[2016-12-17] MEDS: traZODone HCL 50 MG TAB PO SCH (20:08)
[2016-12-17] MEDS: PRAVASTATIN SODIUM 20 MG TAB PO SCH (20:08)
[2016-12-17] MEDS: hydrOXYzine HCL 10 MG TAB PO SCH (20:08)
[2016-12-17] MEDS: THEOPHYLLINE 24 HOUR 200 MG CAP.ER.24H PO SCH (20:08)
[2016-12-17] MEDS: LOPERAMIDE 2 MG CAP PO SCH ×2 (20:30→21:27)
[2016-12-17 20:47] LABS: Glucose,Whole Blood 125 mg/dL (75-99)
[2016-12-17] MEDS: INSULIN LISPRO (humaLOG) 300 UNIT/3 ML VIAL SQ SCH (20:52)
[2016-12-17] MEDS ORDERED: TEMAZEPAM 15 MG CAP PO PRN (21:00)
[2016-12-17 21:01] LABS: Appearance,Urine Clear (Clear); Bilirubin,Urine Negative (Negative); Glucose,Urine (UA) Negative (Negative); Ketones,Urine 1+ (Negative); Leukocyte Esterase,Urine Negative (Negative); Nitrite,Urine Negative (Negative); Protein,Urine Negative (Negative); UA Billing (MACRO vs. MICRO) CHEM
[2016-12-17 22:22] VITALS: BMI 26.4
[2016-12-17 22:39] LABS: Hemoglobin A1C 5.9 % (4.2-6.1)
[2016-12-18] MEDS: HYDROmorphone 1 MG/ML 1 ML SYRINGE IVP PRN ×2 (02:56→08:39)
[2016-12-18] MEDS: methylPREDNISolone SOD SUCCI 125 MG/2 ML VIAL IV SCH ×3 (06:03→18:38)
[2016-12-18] MEDS: LEVOTHYROXINE 50 MCG TAB PO SCH (06:03)
[2016-12-18] MEDS: IPRATROPIUM-ALBUTEROL 3 ML NEB INHALATION PRN ×4 (07:40→19:21)
[2016-12-18] MEDS: BUDESONIDE 1 MG/2 ML NEBU INHALATION SCH ×2 (07:40→19:22)
[2016-12-18] MEDS: FORMOTEROL FUMARATE 20 MCG/2 ML NEBU INHALATION SCH ×2 (07:40→19:21)
[2016-12-18 07:43] LABS: Glucose,Whole Blood 201 mg/dL (75-99)
[2016-12-18] MEDS: TIOTROPIUM 18 MCG/PUFF INHALER INHALATION SCH (07:53)
[2016-12-18] MEDS: INSULIN LISPRO (humaLOG) 300 UNIT/3 ML VIAL SQ SCH ×4 (08:33→22:40)
[2016-12-18] MEDS: THEOPHYLLINE 24 HOUR 200 MG CAP.ER.24H PO SCH ×2 (08:33→22:35)
[2016-12-18] MEDS: RIVAROXABAN 10 MG TAB PO SCH (08:34)
[2016-12-18] MEDS: SERTRALINE 50 MG TAB PO SCH (08:35)
[2016-12-18] MEDS: LOSARTAN 50 MG TAB PO SCH (08:35)
[2016-12-18] MEDS: LORATADINE 10 MG TAB PO SCH (08:35)
[2016-12-18] MEDS: PANTOPRAZOLE 40 MG TABLET PO SCH (08:35)
[2016-12-18] MEDS: FUROSEMIDE 20 MG TAB PO SCH (08:36)
[2016-12-18] MEDS: CITALOPRAM HYDROBROMIDE 20 MG TAB PO SCH (08:36)
[2016-12-18] MEDS: FAMOTIDINE 20 MG TAB PO SCH (08:36)
[2016-12-18] MEDS: FLUTICASONE 50MCG/SPRAY NASAL 16GM EA NOSTRIL SCH (08:36)
[2016-12-18] MEDS: BACLOFEN 10 MG TAB PO SCH ×2 (08:36→22:35)
[2016-12-18] MEDS: hydrOXYzine HCL 10 MG TAB PO SCH ×3 (08:37→22:36)
[2016-12-18] MEDS: PALIPERIDONE 6 MG TAB.ER.24 PO SCH (08:38)
[2016-12-18] MEDS: MONTELUKAST 10 MG TAB PO SCH (08:39)
[2016-12-18] MEDS: LOPERAMIDE 2 MG CAP PO SCH ×4 (08:48→22:40)
[2016-12-18 08:49] LABS: Basophils % (A) 0 %; CH 28.3; CHCM 31.5; Eosinophils % (A) 0 %; HCT 32.3 % (39.0-53.0); HGB 9.6 gm/dL (13.0-17.5); Hypochromasia Moderate; Luc # (Auto) 0.05; Luc % (Auto) 1; Lymphocytes # (A) 0.7 k/uL (1.0-4.8); Lymphocytes % (A) 13 %; MCH 26.9 pg (25.0-35.0); MCHC 29.8 g/dL (31.0-37.0); MCV 90.2 fL (80.0-100.0); Mean Platelet Volume 7.3; Monocytes # (A) 0.1 k/uL (0-1.0); Monocytes % (A) 2 %; Neutrophils # (A) 4.5 k/uL (1.3-7.7); Neutrophils % (A) 84 %; RBC 3.58 m/uL (4.30-5.90); RDW 14.7 % (11.5-15.5); WBC 5.3 k/uL (3.8-10.6); WBC (Perox) 6.09
[2016-12-18 08:56] LABS: Anion Gap 9 mmol/L; Blood Urea Nitrogen 10 mg/dL (9-20); Calcium 8.4 mg/dL (8.4-10.2); Carbon Dioxide 27 mmol/L (22-30); Chloride 100 mmol/L (98-107); Glucose 199 mg/dL (74-99); Non-African American GFR(MDRD) >60 (>60 ml/min/1.73 sqM); Potassium 4.2 mmol/L (3.5-5.1); Sodium 136 mmol/L (137-145)
[2016-12-18] MEDS ORDERED: LEVOFLOXACIN 500 MG TAB PO SCH (09:00)
--- NOTE | 2016-12-18 09:35 | HP ---
DATE OF ADMISSION: CHIEF COMPLAINT: Weakness, fall as well as change in mental status. HISTORY OF PRESENT ILLNESS: This 56-year-old gentleman with a past medical history of multiple medical problems including COPD, history of asthma, history of DVT, history of GERD, hypertension, hyperlipidemia, musculoskeletal disorder, history of pneumonia, history of pulmonary embolism, history of Clostridium difficile, history of back surgery, degenerative joint disease, history of anxiety, schizophrenia, history of nicotine dependence being followed by Dr. Adams in the outpatient setting recently had back surgeries from Dr. Dillard in [place] at [facility]. The details are not available, but after the back surgery apparently the patient returned home and apparently the patient was falling and complains of weakness and tiredness and patient also has cough and fever as well as multiple symptomatology. The patient presented to [facility] and admitted for further evaluation and treatment. In the ER, a lumbar spine CAT scan was done, which showed postsurgical changes of lumbar laminectomy and fusion. The chest x-ray showed no evidence of acute pulmonary embolism. The patient had fever and tachycardia. There is no history of any fever, rigors, chills. No history of headache, loss of consciousness or seizures at this time. The patient had change in mental status thought to be multifactorial. PAST MEDICAL HISTORY: Recent back surgery, asthma, COPD, DVT, history of gastroesophageal reflux disease, hyperlipidemia, hypertension, history of pulmonary embolism, history of chronic hypoxic respiratory failure. The home medications include: 1. Prednisone 20 mg p.o. daily. 2. OxyContin 10 mg q.4 p.r.n. 3. Incruse Ellipta 1 puff daily. 4. Daliresp 500 mcg p.o. daily. 5. Xarelto 20 mg p.o. daily. 6. Omeprazole 20 mg p.o. daily. 7. Imodium 2 mg p.o. q.i.d. 8. Advair HFA 2 puffs b.i.d. 9. Valium 5 mg q.6 p.r.n. 10. Zoloft 50 mg p.o. daily. 11. Zyrtec 20 mg p.o. daily. 12. Yoav-24 200 mg p.o. b.i.d. 13. Pravachol 20 mg q.h.s. 14. Invega 6 mg p.o. daily. 15. Melatonin 3 mg q.h.s. 16. Celexa 20 mg p.o. daily. 17. Symbicort 160/4.5, 2 puffs b.i.d. 18. Atarax 10 mg p.o. t.i.d. 19. Lioresal 20 mg p.o. b.i.d. 20. ProAir HFA 2 puffs q.i.d. p.r.n. 21. Trazodone 150 mg p.o. q.h.s. 22. Cozaar 50 mg p.o. daily. 23. Synthroid 50 mcg p.o. daily. 24. Xanax 0.5 daily p.r.n. 25. Requip 1 mg p.o. q.h.s. 26. Singulair 10 mg p.o. daily. 27. Lasix 20 mg p.o. daily. 28. Flonase 2 sprays daily. 29. Pepcid 20 mg daily. 30. Percocet 7.5 q.8 p.r.n. ALLERGIES ARE IBUPROFEN AND PENICILLIN. FAMILY HISTORY: History of cancer, CVA, TIA, breast cancer. SOCIAL HISTORY: Previous history of smoking. No history of alcohol intake. REVIEW OF SYSTEMS: ENT: No diminished hearing. No diminished vision. CARDIOVASCULAR: No angina. RESPIRATORY: As mentioned earlier. GI: No nausea. : No dysuria. NERVOUS SYSTEM: No numbness, weakness. ALLERGIES/IMMUNOLOGY: As mentioned earlier. MUSCULOSKELETAL: As mentioned earlier. HEMATOLOGY/ONCOLOGY: No history of anemia. ENDOCRINE: As mentioned earlier. CONSTITUTIONAL: As mentioned earlier. DERMATOLOGY: Negative. RHEUMATOLOGY: Negative. PSYCHIATRY: As mentioned earlier. PHYSICAL EXAMINATION: Alert and oriented x3. Pulse is 118, blood pressure is 100/64, respirations 18, temperature 100.7, pulse ox 96% on room air. HEENT: Conjunctivae normal. Oral mucosa moist. NECK: No jugular venous distention. No carotid bruit. No lymph node enlargement. CARDIOVASCULAR: S1, S2. No S1, S2. RESPIRATORY: Breath sounds diminished at the bases. A few scattered rhonchi and crackles. ABDOMEN: Soft, nontender. No mass palpable. LEGS: No edema, no swelling. NERVOUS SYSTEM: Higher function as mentioned earlier. Moves all 4 limbs, otherwise, no focal motor or sensory deficits. LYMPHATIC: No lymphadenopathy in the neck, axillae or groin. SKIN: No ulcer, rash or bleeding. LABS: Hemoglobin is 10.1, sodium 135, AST is 250, albumin is 2.7. Drug screen is positive for opiates, oxycodone and benzodiazepines. Influenza is negative. ASSESSMENT: 1. Fever and tachycardia for evaluation, rule out pneumonia. 2. Chronic obstructive pulmonary disease, acute exacerbation, with acute purulent tracheobronchitis. 3. Anemia, normocytic. 4. Hyponatremia. 5. Hypoalbuminemia with mild to moderate protein calorie malnutrition. 6. Increased AST. 7. Change in mental status, metabolic encephalopathy, multifactorial. 8. History of recent back surgery for severe degenerative joint disease. 9. History of asthma, chronic obstructive pulmonary disease. 10. History of deep venous thrombosis and bilateral pulmonary embolism. 11. History of gastroesophageal reflux disease. 12. Hypertension. 13. Hyperlipidemia. 14. History of degenerative joint disease. 15. History of chronic hypoxic respiratory failure, on home oxygen. 16. History of Clostridium difficile. 17. History of degenerative joint disease. 18. History of anxiety, schizophrenia. 19. Remote history nicotine dependence. 20. FULL CODE. 21. Gait dysfunction. RECOMMENDATIONS AND DISCUSSION: In this 56-year-old gentleman who presented with multiple complex medical issues. Will monitor the patient closely. Continue the current medications. Continue symptomatic treatment. Otherwise, I would recommend symptomatic treatment and empiric antibiotics. Consolidate bronchodilators. Also give intravenous IV antibiotics. Obtain cultures. Flu is negative. Prognosis guarded because of multiple complex medical issues. EtOH is also possibility, but however, will continue to monitor for further recommendations. Copy of dictation forwarded to Dr. Adams, who is the primary physician.
[2016-12-18] MEDS: THIAMINE 100 MG TAB PO SCH (11:20)
[2016-12-18] MEDS: FOLIC ACID 1 MG TAB PO SCH (11:20)
[2016-12-18] MEDS: MULTIVITAMINS, THERA 1 EACH TAB PO SCH (11:20)
[2016-12-18] MEDS: oxyCODONE-APAP 10-325MG 1 EACH TAB PO PRN ×4 (11:20→22:40)
[2016-12-18 11:54] LABS: Glucose,Whole Blood 248 mg/dL (75-99)
--- NOTE | 2016-12-18 13:08 | P.CNPUL ---
History of Present Illness Consult date: 12/18/16 Reason for consult: dyspnea, COPD History of present illness: 56-year-old male patient, known history of COPD and known history of previous DVT about the pulmonary embolism that occurred more than a year ago was admitted on Xarelto on outpatient basis, coming into the hospital because of increased shortness of breath. The patient has undergone multilevel lumbar laminectomy and fusion of the lumbar spine at [facility] by Dr. Dillard. Postop, the patient was discharged home and he was unable to get back to his life in general. He was still having difficulty with weakness and mobility in his lower extremities and he was getting progressively more short of breath. For all this reasons the patient decided to come in to the hospital. No chest pain. No cough or sputum production. No change in mental status. CAT scan of the lumbosacral spine was done and the time of admission showed essentially postsurgical changes consistent with laminectomy and fusion. His surgical wound site over the lower lumbar spinous dry clean and intact. Chest x-ray at time of admission showed no acute abnormalities. No swelling in lower extremities. No pleurisy. No hemoptysis. No chest pain. No change in mental status. He is known to have underlying schizophrenia in addition to multiple medical positive, his including severe bronchial asthma/COPD, previous history of DVT and pulmonary embolism, degenerative disc disease, anxiety, schizophrenia, hypertension, GERD. Noted the patient had quit smoking. The patient was maintained on Incruse and Advair and teophylline on an outpatient basis regarding his COPD. Review of Systems For review of system was done and the positive findings are almost above in history of present illness Past Medical History Past Medical History: Asthma, COPD, Deep Vein Thrombosis (DVT), GERD/Reflux, Hyperlipidemia, Hypertension, Musculoskeletal Disorder, Pneumonia, Pulmonary Embolus (PE) Additional Past Medical History / Comment(s): COPD, history of DVT and bilateral pulmonary embolism, history of a cavitating right upper lobe pneumonia related to gram-negative, the patient has recovered and the patient has no evidence of any malignancy, hyperlipidemia, hypertension, anxiety, schizophrenia, degenerative arthritis and chronic back pain, GE reflux, history of C. diff colitis. History of Any Multi-Drug Resistant Organisms: None Reported Date of last positivie culture/infection: None MDRO Source:: None Past Surgical History: Back Surgery, Hernia Repair, Orthopedic Surgery Additional Past Surgical History / Comment(s): neck & shoulder & elbow surg., STOMACH SURGERY. Back surgery x 4 - last surgery February 2015 Past Anesthesia/Blood Transfusion Reactions: No Reported Reaction Additional Past Anesthesia/Blood Transfusion Reaction / Comment(s): couldn't urinate after a surgery, Past Psychological History: Anxiety, Schizophrenia Smoking Status: Former smoker Past Alcohol Use History: None Reported Additional Past Alcohol Use History / Comment(s): QUIT SMOKING JUL 2014, STARTED SMOKING AT AGE 14/ 1PPD Past Drug Use History: None Reported - Past Family History Mother History Unknown: Yes Family Medical History: Cancer, CVA/TIA Additional Family Medical History / Comment(s): breast cancer Medications and Allergies Home Medications Medication Instructions Recorded Confirmed Type Montelukast [Singulair] 10 mg PO DAILY 06/08/14 12/17/16 History Paliperidone [Invega] 6 mg PO DAILY 06/08/14 12/17/16 History traZODone HCL [traZODone] 150 mg PO HS 06/08/14 12/17/16 History Losartan [Cozaar] 50 mg PO DAILY 07/09/15 12/17/16 History rOPINIRole HCL [Requip] 1 mg PO HS 07/09/15 12/17/16 History Pravastatin Sodium [Pravachol] 20 mg PO HS 08/27/15 12/17/16 History Rivaroxaban [Xarelto] 20 mg PO DAILY 12/21/15 12/17/16 History Diazepam [Valium] 5 mg PO Q6H PRN 12/10/16 12/17/16 History Fluticasone/Salmeterol [Advair Hfa 2 puff INHALATION RT-BID 12/10/16 12/17/16 History 230-21 Mcg Inhaler] Furosemide [Lasix] 20 mg PO DAILY 12/10/16 12/17/16 History Loperamide [Imodium] 2 mg PO QID 12/10/16 12/17/16 History Omeprazole 20 mg PO DAILY 12/10/16 12/17/16 History Roflumilast [Daliresp] 500 mcg PO DAILY 12/10/16 12/17/16 History Umeclidinium [place] [Incruse 1 puff INHALATION RT-DAILY 12/10/16 12/17/16 History Ellipta] oxyCODONE-APAP 10-325MG [Percocet 1 - 2 tab PO Q4H PRN 12/10/16 12/17/16 History 10-325 mg] predniSONE 20 mg PO DAILY 12/10/16 12/17/16 History ALPRAZolam [Xanax] 0.25 mg PO DAILY PRN 12/17/16 12/17/16 History Albuterol Sulfate [Proair Hfa] 2 puff INHALATION RT-QID PRN 12/17/16 12/17/16 History Baclofen [Lioresal] 20 mg PO BID 12/17/16 12/17/16 History Budesonide-Formot 160-4.5 Mcg 2 puff INHALATION RT-BID PRN 12/17/16 12/17/16 History [Symbicort 160-4.5 Mcg Inhaler] Cetirizine HCl [Zyrtec] 10 mg PO DAILY 12/17/16 12/17/16 History Citalopram Hydrobromide [CeleXA] 20 mg PO DAILY 12/17/16 12/17/16 History Famotidine [Pepcid] 20 mg PO DAILY 12/17/16 12/17/16 History Fluticasone Nasal [place] [Flonase 2 spr EA NOSTRIL DAILY 12/17/16 12/17/16 History Nasal [place]] Levothyroxine Sodium [Synthroid] 50 mcg PO DAILY 12/17/16 12/17/16 History Melatonin 3 mg PO HS 12/17/16 12/17/16 History Sertraline [Zoloft] 50 mg PO DAILY 12/17/16 12/17/16 History Theophylline 24 Hour [Yoav-24] 200 mg PO BID 12/17/16 12/17/16 History hydrOXYzine HCL [Atarax] 10 mg PO TID 12/17/16 12/17/16 History Allergies Allergy/AdvReac Type Severity Reaction Status Date / Time ibuprofen [From Motrin] Allergy Unknown Verified 12/10/16 15:55 Penicillins Allergy "PASSED Verified 12/10/16 15:55 OUT", SOB Physical Exam Vitals: Vital Signs Temp Pulse Pulse Resp BP BP Pulse Ox 12/18/16 11:43 92 12/18/16 11:33 97 12/18/16 08:00 92 12/18/16 07:51 88 12/18/16 07:50 88 12/18/16 07:40 88 12/18/16 07:00 98.1 F 110 H 20 109/78 99 12/18/16 00:45 98.4 F 12/17/16 23:00 100.2 F H 108 H 16 100/56 95 12/17/16 20:21 124 H 12/17/16 20:13 124 H 12/17/16 20:12 124 H 12/17/16 20:02 123 H 12/17/16 19:30 99.1 F 124 H 16 115/65 96 12/17/16 18:35 100.7 F H 118 H 18 100/65 93 L 12/17/16 16:31 114 H 18 108/56 94 L Intake and Output 12/17/16 12/18/16 12/18/16 22:59 06:59 14:59 Intake Total 300 Output Total 200 600 Balance 100 -600 Intake: Amount of Fluid Infused ( 300 ml) Output: Urine 200 600 Other: # Voids 1 3 # Bowel Movements 1 Weight 81 kg 81 kg Patient Weight 12/19/16 06:59 Weight 81 kg Head exam was generally normal. There was no scleral icterus or corneal arcus. Mucous membranes were moist.Neck was supple and without jugular venous distension, thyromegaly, or carotid bruits. Carotids were easily palpable bilaterally. There was no adenopathy. Lung sounds are diminished bilaterally along with diffuse expiratory wheezes heard throughout all lung serrano and this prolongation of expiratory phase of breathing.Cardiac exam revealed the PMI to be normally situated and sized. The rhythm was regular and no extrasystoles were noted during several minutes of auscultation. The first and second heart sounds were normal and physiologic splitting of the second heart sound was noted. There were no murmurs, rubs, clicks, or gallops.Abdominal exam revealed normal bowel sounds. The abdomen was soft, non-tender, and without masses, organomegaly, or appreciable enlargement of the abdominal aorta.Examination of the extremities revealed easily palpable radial, femoral and pedal pulses. There was no cyanosis, clubbing or edema. Neurologically the patient's lower extremities are weak and the motor power is on 4 out of 5 in nature. This surgical wound site over the lower lumbar spine is dry clean and intact. Results - Laboratory Findings CBC and BMP: 12/18/16 08:16 12/18/16 08:16 Abnormal lab findings: Abnormal Labs 12/17/16 12/17/16 12/18/16 20:45 20:46 07:42 RBC Hgb Hct MCHC Lymphocytes # Sodium Glucose POC Glucose (mg/dL) 125 H 201 H Urine Ketones 1+ H 12/18/16 12/18/16 12/18/16 08:16 08:16 11:52 RBC 3.58 L Hgb 9.6 L Hct 32.3 L MCHC 29.8 L Lymphocytes # 0.7 L Sodium 136 L Glucose 199 H POC Glucose (mg/dL) 248 H Urine Ketones - Diagnostic Findings Chest x-ray: image reviewed Assessment and Plan Plan: Assessment 1 acute COPD exacerbation with secondary shortness of breath 2 degenerative disc disease involving the lumbar spine status post lumbar laminectomy and decompression, multilevel. 3 history of cavitating right upper lobe pneumonia, recovered 4 History of bilateral DVT and pulmonary embolism, maintained on long-term articulation with Xarelto 5 chronic anxiety/depression/schizophrenia 6 hyperlipidemia 7 GE reflux 8 chronic back pain Plan Would optimize the patient's COPD. The patient will be placed on a combination of DuoNeb neb last treatment [id number], Pulmicort Respules 0.5 mg tablet missed her today and IV Solu-Medrol . The patient will be kept on Xarelto for anticoagulation specialist that he has undergone a recent orthopedic surgery and the patient has significant history of pulmonary embolism and DVT. The patient will be asked to be seen by physical therapy. He may need inpatient rehabilitation knowing that the patient is recovered in terms of surgical recovery from lumbar spine surgery has been essentially slow and suboptimal. We 'll continue to follow.
[2016-12-18] MEDS: SODIUM CHLORIDE 0.9% 1,000 ML IV SCH (15:39)
[2016-12-18] MEDS ORDERED: HYDROmorphone 1 MG/ML 1 ML SYRINGE IVP PRN (16:22)
--- NOTE | 2016-12-18 16:22 | P.PN ---
Subjective Date of service 12/18/2016. Progress note being dictated for Dr. Betancourt. Interval history: This is a 48-year-old gentleman with recent spine Surgery, admitted with acute COPD exacerbation in a patient with history of recovered cavitating right upper lobe pneumonia and multiple other medical issues. Maintained on antibiotics, IV steroids and nebulized bronchodilators with significant clinical improvement. Elevated sugars, steroid-induced Evaluated by PT OT and subacute rehab recommended at discharge. Anticoagulated on Xarelto. Denies chest pain, palpitations or increasing shortness of breath. Objective - Vital Signs Vital signs: Vital Signs Temp 98.1 F 12/18/16 07:00 Pulse 92 12/18/16 11:43 Resp 20 12/18/16 07:00 BP 109/78 12/18/16 07:00 Pulse Ox 99 12/18/16 07:00 - Exam PHYSICAL EXAM: VITAL SIGNS: As above GENERAL: [Sitting up in chair, ] HEENT: [Pupils equal conjunctiva normal.] NECK: [Supple, no JVD] RESPIRATORY EFFORT:[Mildly increased] LUNGS: [Diminished with occasional expiratory wheezing, no crackles, no rhonchi ] CARDIOVASCULAR[regular S1 and S2, no murmurs rubs or gallops] GI: [Abdomen soft, nontender, positive bowel sounds.] PSYCH: [Alert and oriented -3, mood and affect normal SKIN: Lumbar surgical site well approximated, clean dry and intact NEURO: Gross neuro examination did not reveal any focal deficits, moves all 4 extremities; bilateral lower extremity weakness for 4/5 - Labs CBC & Chem 7: 12/18/16 08:16 12/18/16 08:16 Assessment and Plan Plan: 1. Acute COPD exacerbation with Fever, tachycardia further evaluation, history of cavitating right upper lobe pneumonia-recovered. 2. [Acute purulent tracheobronchitis]. 3. [Anemia, normocytic]. 4. [Hyponatremia]. 5. [Hypoalbuminemia with mild to moderate protein calorie malnutrition]. 6. [Increased AST]. 7. [Change in mental status, acute metabolic encephalopathy, multifactorial]. 8. Recent back surgery for severe degenerative joint disease with gait dysfunction 9. History of chronic intermittent asthma, COPD 10. History of DVT and bilateral PE, anticoagulated on Xarelto 11. Gastroesophageal reflux disease 12. Hypertension 13. Hyperlipidemia 14. Chronic hypoxic respiratory failure on home O2 15. History of C. diff 16. History of anxiety, schizophrenia 17. Remote history of nicotine dependence Plan: Continue on current medication regime ,monitoring and symptomatic treatment. Continue on nebulized bronchodilators, steroids and antibiotics. Close monitoring of pain, patient relating back pain at 10 out of 10, currently relieved with Percocet. We will add Dilaudid IV push when necessary for severe breakthrough pain, unrelieved by Percocet. Social work consulted, discharge planning in progress for [facility] rehab. The impression and plan of care has been dictated as directed. : I performed a H&P examination of this patient and discussed the same with the dictator. I agree with the dictator's note. Any additional findings/opinions/ etc. will be noted.
[2016-12-18 17:23] LABS: Glucose,Whole Blood 210 mg/dL (75-99)
--- NOTE | 2016-12-18 20:21 | PN ---
DATE OF SERVICE: 12/18/2016 This 56-year-old gentleman who was admitted with weakness, tiredness and back pain after spinal surgery is being closely monitored. Seen and evaluated the patient along with the nurse practitioner. Please refer to the nurse practitioner notes and impression documented for further information. Influenza negative. Further recommendations to follow. The patient has significant pain issues and multiple falls at home after the surgery. KUSHAL
[2016-12-18 21:12] LABS: Glucose,Whole Blood 212 mg/dL (75-99)
[2016-12-18] MEDS: LEVOFLOXACIN 500 MG TAB PO SCH (22:35)
[2016-12-18] MEDS: traZODone HCL 50 MG TAB PO SCH (22:35)
[2016-12-18] MEDS: PRAVASTATIN SODIUM 20 MG TAB PO SCH (22:35)
[2016-12-18] MEDS: MELATONIN 3 MG TABLET PO SCH (22:36)
[2016-12-19] MEDS: methylPREDNISolone SOD SUCCI 125 MG/2 ML VIAL IV SCH ×3 (00:36→12:52)
[2016-12-19] MEDS: LEVOTHYROXINE 50 MCG TAB PO SCH (06:08)
[2016-12-19] MEDS: oxyCODONE-APAP 10-325MG 1 EACH TAB PO PRN ×5 (06:10→22:17)
[2016-12-19] MEDS: BUDESONIDE 1 MG/2 ML NEBU INHALATION SCH ×2 (07:38→21:09)
[2016-12-19] MEDS: FORMOTEROL FUMARATE 20 MCG/2 ML NEBU INHALATION SCH ×2 (07:38→21:09)
[2016-12-19] MEDS: TIOTROPIUM 18 MCG/PUFF INHALER INHALATION SCH (07:39)
[2016-12-19] MEDS: IPRATROPIUM-ALBUTEROL 3 ML NEB INHALATION PRN ×3 (07:39→21:09)
[2016-12-19 07:40] LABS: Glucose,Whole Blood 221 mg/dL (75-99)
[2016-12-19] MEDS: INSULIN LISPRO (humaLOG) 300 UNIT/3 ML VIAL SQ SCH ×4 (09:06→22:13)
[2016-12-19] MEDS: FLUTICASONE 50MCG/SPRAY NASAL 16GM EA NOSTRIL SCH (09:06)
[2016-12-19] MEDS: hydrOXYzine HCL 10 MG TAB PO SCH ×3 (09:08→22:12)
[2016-12-19] MEDS: BACLOFEN 10 MG TAB PO SCH ×2 (09:09→22:13)
[2016-12-19] MEDS: SERTRALINE 50 MG TAB PO SCH (09:09)
[2016-12-19] MEDS: CITALOPRAM HYDROBROMIDE 20 MG TAB PO SCH (09:09)
[2016-12-19] MEDS: RIVAROXABAN 10 MG TAB PO SCH (09:09)
[2016-12-19] MEDS: FAMOTIDINE 20 MG TAB PO SCH (09:09)
[2016-12-19] MEDS: THEOPHYLLINE 24 HOUR 200 MG CAP.ER.24H PO SCH ×2 (09:09→22:12)
[2016-12-19] MEDS: PANTOPRAZOLE 40 MG TABLET PO SCH (09:09)
[2016-12-19] MEDS: LORATADINE 10 MG TAB PO SCH (09:10)
[2016-12-19] MEDS: MONTELUKAST 10 MG TAB PO SCH (09:10)
[2016-12-19] MEDS: FUROSEMIDE 20 MG TAB PO SCH (09:10)
[2016-12-19] MEDS: PALIPERIDONE 6 MG TAB.ER.24 PO SCH (09:10)
[2016-12-19] MEDS: LOSARTAN 50 MG TAB PO SCH (09:10)
[2016-12-19] MEDS: SODIUM CHLORIDE 0.9% 1,000 ML IV SCH (09:11)
[2016-12-19] MEDS: LOPERAMIDE 2 MG CAP PO SCH ×4 (09:11→22:17)
[2016-12-19 09:21] LABS: Basophils % (A) 0 %; CH 28.1; CHCM 31.1; Eosinophils % (A) 0 %; HCT 31.4 % (39.0-53.0); HDW 3.51; HGB 9.5 gm/dL (13.0-17.5); Hypochromasia Moderate; Luc # (Auto) 0.14; Luc % (Auto) 1; Lymphocytes # (A) 0.8 k/uL (1.0-4.8); Lymphocytes % (A) 6 %; MCH 27.4 pg (25.0-35.0); MCHC 30.2 g/dL (31.0-37.0); MCV 90.7 fL (80.0-100.0); Mean Platelet Volume 7.5; Monocytes # (A) 0.3 k/uL (0-1.0); Monocytes % (A) 2 %; Neutrophils # (A) 12.4 k/uL (1.3-7.7); Neutrophils % (A) 91 %; Poikilocytosis Slight; RBC 3.46 m/uL (4.30-5.90); RDW 14.8 % (11.5-15.5); WBC 13.7 k/uL (3.8-10.6); WBC (Perox) 14.28
[2016-12-19 09:31] LABS: Anion Gap 10 mmol/L; Blood Urea Nitrogen 11 mg/dL (9-20); Calcium 8.9 mg/dL (8.4-10.2); Carbon Dioxide 27 mmol/L (22-30); Chloride 102 mmol/L (98-107); Glucose 226 mg/dL (74-99); Non-African American GFR(MDRD) >60 (>60 ml/min/1.73 sqM); Potassium 4.6 mmol/L (3.5-5.1); Sodium 139 mmol/L (137-145)
[2016-12-19 12:18] LABS: Glucose,Whole Blood 216 mg/dL (75-99)
[2016-12-19] MEDS: MULTIVITAMINS, THERA 1 EACH TAB PO SCH (12:50)
[2016-12-19] MEDS: FOLIC ACID 1 MG TAB PO SCH (12:50)
[2016-12-19] MEDS: THIAMINE 100 MG TAB PO SCH (12:50)
[2016-12-19] MEDS: NON-FORMULARY DRUG (Roflumilast [Daliresp] 500 MCG) PO SCH (13:34)
--- NOTE | 2016-12-19 16:01 | P.PN ---
Subjective 56-year-old male patient, known history of COPD and known history of previous DVT about the pulmonary embolism that occurred more than a year ago was admitted on Xarelto on outpatient basis, coming into the hospital because of increased shortness of breath. The patient has undergone multilevel lumbar laminectomy and fusion of the lumbar spine at [facility] by Dr. Dillard. Postop, the patient was discharged home and he was unable to get back to his life in general. He was still having difficulty with weakness and mobility in his lower extremities and he was getting progressively more short of breath. For all this reasons the patient decided to come in to the hospital. No chest pain. No cough or sputum production. No change in mental status. CAT scan of the lumbosacral spine was done and the time of admission showed essentially postsurgical changes consistent with laminectomy and fusion. His surgical wound site over the lower lumbar spinous dry clean and intact. Chest x-ray at time of admission showed no acute abnormalities. No swelling in lower extremities. No pleurisy. No hemoptysis. No chest pain. No change in mental status. He is known to have underlying schizophrenia in addition to multiple medical positive, his including severe bronchial asthma/COPD, previous history of DVT and pulmonary embolism, degenerative disc disease, anxiety, schizophrenia, hypertension, GERD. Noted the patient had quit smoking. The patient was maintained on Incruse and Advair and teophylline on an outpatient basis regarding his COPD. The patient was seen again today 12/19/2016 in follow-up on the regular medical floor. He is awake and alert in no acute distress. He has been working well with physical therapy and the plan is for discharge today to inpatient rehabilitation center. He denies any worsening shortness of breath, cough or congestion. He is maintaining good O2 saturations in the 90s on room air. His pain is well controlled. Objective - Vital Signs Vital signs: Vital Signs Temp 97.3 F L 12/19/16 15:00 Pulse 87 12/19/16 15:37 Resp 18 12/19/16 15:37 BP 140/76 12/19/16 15:00 Pulse Ox 97 12/19/16 15:00 Intake & Output 12/18/16 12/19/16 12/19/16 18:59 06:59 18:59 Intake Total 200 300 Output Total 3100 Balance -2900 300 Intake: IV 300 Sodium Chloride 0.9% 1, 300 000 ml @ 50 mls/hr IV . Q20H [facility] Rx#:[id number] Oral 200 Output: Urine 3100 Other: # Voids 1 # Bowel Movements 4 1 - Exam GENERAL EXAM: Alert, comfortable in no apparent distress. HEAD: Normocephalic. EYES: Normal reaction of pupils, equal size. NOSE: Clear with pink turbinates. THROAT: No erythema or exudates. NECK: No masses, no JVD. CHEST: No chest wall deformity. LUNGS: Equal air entry with no crackles, wheeze, rhonchi or dullness. Diminished. CVS: S1 and S2 normal with no audible murmurs, regular rhythm. ABDOMEN: No hepatosplenomegaly, normal bowel sounds, no guarding or rigidity. SPINE: No scoliosis or deformity SKIN: No rashes CENTRAL NERVOUS SYSTEM: No focal deficits, tone is normal in all 4 extremities. - Labs CBC & Chem 7: 12/19/16 08:43 12/19/16 08:43 Labs: Abnormal Lab Results - Last 24 Hours (Table) 12/18/16 12/18/16 12/19/16 Range/Units 17:21 21:01 07:35 WBC (3.8-10.6) k/uL RBC (4.30-5.90) m/uL Hgb (13.0-17.5) gm/dL Hct (39.0-53.0) % MCHC (31.0-37.0) g/dL Neutrophils # (1.3-7.7) k/uL Lymphocytes # (1.0-4.8) k/uL Glucose (74-99) mg/dL POC Glucose (mg/dL) 210 H 212 H 221 H (75-99) mg/dL 12/19/16 12/19/16 12/19/16 Range/Units 08:43 08:43 12:17 WBC 13.7 H (3.8-10.6) k/uL RBC 3.46 L (4.30-5.90) m/uL Hgb 9.5 L (13.0-17.5) gm/dL Hct 31.4 L (39.0-53.0) % MCHC 30.2 L (31.0-37.0) g/dL Neutrophils # 12.4 H (1.3-7.7) k/uL Lymphocytes # 0.8 L (1.0-4.8) k/uL Glucose 226 H (74-99) mg/dL POC Glucose (mg/dL) 216 H (75-99) mg/dL Assessment and Plan Plan: Assessment 1 acute COPD exacerbation with secondary shortness of breath 2 degenerative disc disease involving the lumbar spine status post lumbar laminectomy and decompression, multilevel. 3 history of cavitating right upper lobe pneumonia, recovered 4 History of bilateral DVT and pulmonary embolism, maintained on long-term articulation with Xarelto 5 chronic anxiety/depression/schizophrenia 6 hyperlipidemia 7 GE reflux 8 chronic back pain Plan: The patient was seen and evaluated by Dr. Ralph. He is stable from the pulmonary standpoint and could be discharged to an extended care facility for inpatient rehabilitation today. He'll continue with his usual pulmonary medications. We'll see him back in the office once he is back at his home and able to come for an appointment. He is however encouraged to call sooner with any pulmonary issues or concerns.
--- NOTE | 2016-12-19 16:15 | P.PN ---
Subjective Date of service 12/19/2016. Progress note being dictated for Dr. Kunz. Interval history: This is a 48-year-old gentleman with recent spine Surgery, admitted with acute COPD exacerbation in a patient with history of recovered cavitating right upper lobe pneumonia and multiple other medical issues. Maintained on antibiotics, IV steroids and nebulized bronchodilators with significant clinical improvement. Maintaining O2 sats in the high 90s on room air .Anticoagulated on Xarelto. Pain controlled on Percocet every 4 hours prn. Denies chest pain, palpitations or increasing shortness of breath. Afebrile. Objective - Vital Signs Vital signs: Vital Signs Temp 97.3 F L 12/19/16 15:00 Pulse 87 12/19/16 15:37 Resp 18 12/19/16 15:37 BP 140/76 12/19/16 15:00 Pulse Ox 97 12/19/16 15:00 Intake & Output 12/18/16 12/19/16 12/19/16 18:59 06:59 18:59 Intake Total 200 300 Output Total 3100 Balance -2900 300 Intake: IV 300 Sodium Chloride 0.9% 1, 300 000 ml @ 50 mls/hr IV . Q20H [facility] Rx#:[id number] Oral 200 Output: Urine 3100 Other: # Voids 1 # Bowel Movements 4 1 - Exam PHYSICAL EXAM: VITAL SIGNS: As above GENERAL: [Sitting up in chair, ] HEENT: [Pupils equal conjunctiva normal.] NECK: [Supple, no JVD] RESPIRATORY EFFORT:[Mildly increased] LUNGS: [Diminished with no wheezing, no crackles, no rhonchi] CARDIOVASCULAR[regular S1 and S2, no murmurs rubs or gallops] GI: [Abdomen soft, nontender, positive bowel sounds.] PSYCH: [Alert and oriented -3, mood and affect normal SKIN: Lumbar surgical site well approximated, clean dry and intact NEURO: Gross neuro examination did not reveal any focal deficits, moves all 4 extremities Microbiology 12/17/16 16:23 Blood Blood Culture - Preliminary No Growth after 24 hours - Labs CBC & Chem 7: 12/19/16 08:43 12/19/16 08:43 Labs: Abnormal Lab Results - Last 24 Hours (Table) 12/18/16 12/18/16 12/19/16 Range/Units 17:21 21:01 07:35 WBC (3.8-10.6) k/uL RBC (4.30-5.90) m/uL Hgb (13.0-17.5) gm/dL Hct (39.0-53.0) % MCHC (31.0-37.0) g/dL Neutrophils # (1.3-7.7) k/uL Lymphocytes # (1.0-4.8) k/uL Glucose (74-99) mg/dL POC Glucose (mg/dL) 210 H 212 H 221 H (75-99) mg/dL 12/19/16 12/19/16 12/19/16 Range/Units 08:43 08:43 12:17 WBC 13.7 H (3.8-10.6) k/uL RBC 3.46 L (4.30-5.90) m/uL Hgb 9.5 L (13.0-17.5) gm/dL Hct 31.4 L (39.0-53.0) % MCHC 30.2 L (31.0-37.0) g/dL Neutrophils # 12.4 H (1.3-7.7) k/uL Lymphocytes # 0.8 L (1.0-4.8) k/uL Glucose 226 H (74-99) mg/dL POC Glucose (mg/dL) 216 H (75-99) mg/dL Assessment and Plan Plan: 1. Acute COPD exacerbation with Fever, tachycardia further evaluation, history of cavitating right upper lobe pneumonia-recovered. Improving 2. [Acute purulent tracheobronchitis]. 3. [Anemia, normocytic, of unknown etiology]. 4. [Hyponatremia, resolved]. 5. [Hypoalbuminemia with mild to moderate protein calorie malnutrition]. 6. [Increased AST]. 7. [Change in mental status, acute metabolic encephalopathy, multifactorial]. 8. Recent back surgery for severe degenerative joint disease with gait dysfunction 9. History of chronic intermittent asthma, COPD 10. History of DVT and bilateral PE, anticoagulated on Xarelto 11. Gastroesophageal reflux disease 12. Hypertension 13. Hyperlipidemia 14. Chronic hypoxic respiratory failure on home O2 15. History of C. diff 16. History of anxiety, schizophrenia 17. Remote history of nicotine dependence Plan: Continue on current medication regime ,levaquin, monitoring and symptomatic treatment. Continue on nebulized bronchodilators, steroids and antibiotics. IV access lost, anticipating discharge soon to ECF rehab. pending preauthorization . Transition to oral steroids. discharge planning in progress for ECF rehab. The impression and plan of care has been dictated as directed. : I performed a H&P examination of this patient and discussed the same with the dictator. I agree with the dictator's note. Any additional findings/opinions/ etc. will be noted.
[2016-12-19 17:07] LABS: Glucose,Whole Blood 142 mg/dL (75-99)
--- NOTE | 2016-12-19 20:34 | PN ---
DATE OF SERVICE: 12/19/2016 This 56-year-old gentleman, admitted with tiredness and weakness and multiple medical issues after recent surgery, is being closely monitored. The patient had significant pain, also. Seen and evaluated the patient along with the nurse practitioner. Please refer to the nurse practitioner's notes and impressions documented as a scribe. The UA is unremarkable. White count is still elevated. The chest x-ray showed no acute pulmonary disease. Will repeat the labs tomorrow.
[2016-12-19 21:32] LABS: Glucose,Whole Blood 159 mg/dL (75-99)
[2016-12-19] MEDS: LEVOFLOXACIN 500 MG TAB PO SCH (22:12)
[2016-12-19] MEDS: traZODone HCL 50 MG TAB PO SCH (22:12)
[2016-12-19] MEDS: PRAVASTATIN SODIUM 20 MG TAB PO SCH (22:12)
[2016-12-19] MEDS: MELATONIN 3 MG TABLET PO SCH (22:12)
[2016-12-20] MEDS: oxyCODONE-APAP 10-325MG 1 EACH TAB PO PRN ×5 (02:26→20:42)
[2016-12-20] MEDS: LEVOTHYROXINE 50 MCG TAB PO SCH (06:30)
[2016-12-20 07:42] LABS: Glucose,Whole Blood 110 mg/dL (75-99)
[2016-12-20] MEDS: INSULIN LISPRO (humaLOG) 300 UNIT/3 ML VIAL SQ SCH ×4 (07:53→21:32)
[2016-12-20] MEDS: RIVAROXABAN 10 MG TAB PO SCH (07:55)
[2016-12-20] MEDS: PANTOPRAZOLE 40 MG TABLET PO SCH (07:55)
[2016-12-20] MEDS: BACLOFEN 10 MG TAB PO SCH ×2 (07:55→21:33)
[2016-12-20] MEDS: CITALOPRAM HYDROBROMIDE 20 MG TAB PO SCH (07:55)
[2016-12-20] MEDS: FUROSEMIDE 20 MG TAB PO SCH (07:56)
[2016-12-20] MEDS: FAMOTIDINE 20 MG TAB PO SCH (07:56)
[2016-12-20] MEDS: FLUTICASONE 50MCG/SPRAY NASAL 16GM EA NOSTRIL SCH (07:56)
[2016-12-20] MEDS: LOPERAMIDE 2 MG CAP PO SCH ×4 (07:57→21:33)
[2016-12-20] MEDS: hydrOXYzine HCL 10 MG TAB PO SCH ×3 (07:57→21:33)
[2016-12-20] MEDS: LORATADINE 10 MG TAB PO SCH (07:58)
[2016-12-20] MEDS: MONTELUKAST 10 MG TAB PO SCH (07:58)
[2016-12-20] MEDS: LOSARTAN 50 MG TAB PO SCH (07:58)
[2016-12-20] MEDS: PALIPERIDONE 6 MG TAB.ER.24 PO SCH (07:59)
[2016-12-20] MEDS: THEOPHYLLINE 24 HOUR 200 MG CAP.ER.24H PO SCH ×2 (07:59→21:33)
[2016-12-20] MEDS: predniSONE 20 MG TAB PO SCH (07:59)
[2016-12-20] MEDS: SERTRALINE 50 MG TAB PO SCH (07:59)
[2016-12-20] MEDS: FORMOTEROL FUMARATE 20 MCG/2 ML NEBU INHALATION SCH ×2 (08:49→20:48)
[2016-12-20] MEDS: BUDESONIDE 1 MG/2 ML NEBU INHALATION SCH ×2 (08:49→20:48)
[2016-12-20 10:09] LABS: Anion Gap 10 mmol/L; Blood Urea Nitrogen 16 mg/dL (9-20); Calcium 9.2 mg/dL (8.4-10.2); Carbon Dioxide 29 mmol/L (22-30); Chloride 101 mmol/L (98-107); Glucose 214 mg/dL (74-99); Non-African American GFR(MDRD) >60 (>60 ml/min/1.73 sqM); Potassium 3.8 mmol/L (3.5-5.1); Sodium 140 mmol/L (137-145)
--- NOTE | 2016-12-20 10:32 | P.PN ---
Subjective Date of service 12/20/2016. Progress note being dictated for Dr. Kunz. Interval history: This is a 48-year-old gentleman with recent spine Surgery, admitted with acute COPD exacerbation in a patient with history of recovered cavitating right upper lobe pneumonia and multiple other medical issues. Continues on antibiotics, steroids and nebulized bronchodilators with continuedl improvement. Pain well controlled on oral percocet. Maintaining O2 sate in the mid 90's on RA. Denies chest pain, palpitations or increasing shortness of breath. Afebrile. Objective - Vital Signs Vital signs: Vital Signs Temp 97.8 F 12/20/16 07:00 Pulse 92 12/20/16 08:52 Resp 20 12/20/16 07:00 BP 118/68 12/20/16 07:00 Pulse Ox 95 12/20/16 07:00 Intake & Output 12/19/16 12/20/16 12/20/16 18:59 06:59 18:59 Intake Total 300 200 Output Total 800 3200 Balance -500 -3200 200 Intake: IV 300 Sodium Chloride 0.9% 1, 300 000 ml @ 50 mls/hr IV . Q20H AMBAR Rx#:[id number] Oral 200 Output: Urine 800 3200 Other: # Voids 1 - Exam PHYSICAL EXAM: VITAL SIGNS: As above GENERAL: [Sitting up in chair,no acute distress ] HEENT: [Pupils equal conjunctiva normal.] NECK: [Supple, no JVD] RESPIRATORY EFFORT:[Noraml] LUNGS: [Diminished with no wheezing, no crackles, no rhonchi] CARDIOVASCULAR[regular S1 and S2, no murmurs rubs or gallops] GI: [Abdomen soft, nontender, positive bowel sounds.] PSYCH: [Alert and oriented -3, mood and affect normal SKIN: Lumbar surgical site well approximated, clean dry and intact NEURO: Gross neuro examination did not reveal any focal deficits, moves all 4 extremities Microbiology 12/17/16 16:23 Blood Blood Culture - Preliminary No Growth after 48 hours - Labs CBC & Chem 7: 12/19/16 08:43 12/20/16 09:20 Labs: Abnormal Lab Results - Last 24 Hours (Table) 12/19/16 12/19/16 12/19/16 Range/Units 12:17 17:05 21:10 Glucose (74-99) mg/dL POC Glucose (mg/dL) 216 H 142 H 159 H (75-99) mg/dL 12/20/16 12/20/16 Range/Units 07:20 09:20 Glucose 214 H (74-99) mg/dL POC Glucose (mg/dL) 110 H (75-99) mg/dL Assessment and Plan Plan: 1. Acute COPD exacerbation with Fever, tachycardia further evaluation, history of cavitating right upper lobe pneumonia-recovered. Improving 2. [Acute purulent tracheobronchitis]. 3. [Anemia, normocytic, of unknown etiology]. 4. [Hyponatremia, resolved]. 5. [Hypoalbuminemia with mild to moderate protein calorie malnutrition]. 6. [Increased AST]. 7. [Change in mental status, acute metabolic encephalopathy, multifactorial]. 8. Recent back surgery for severe degenerative joint disease with gait dysfunction 9. History of chronic intermittent asthma, COPD 10. History of DVT and bilateral PE, anticoagulated on Xarelto 11. Gastroesophageal reflux disease 12. Hypertension 13. Hyperlipidemia 14. Chronic hypoxic respiratory failure on home O2 15. History of C. diff 16. History of anxiety, schizophrenia 17. Remote history of nicotine dependence Plan: Continue on current medication regime ,levaquin, monitoring and symptomatic treatment. Continue on nebulized bronchodilators, steroids and antibiotics. Discharge to [facility] rehab. pending preauthorization . The impression and plan of care has been dictated as directed. : I performed a H&P examination of this patient and discussed the same with the dictator. I agree with the dictator's note. Any additional findings/opinions/ etc. will be noted.
[2016-12-20 10:59] LABS: Basophils % (A) 0 %; CH 27.6; CHCM 30.5; Eosinophils % (A) 0 %; HCT 33.9 % (39.0-53.0); HDW 3.44; HGB 10.2 gm/dL (13.0-17.5); Hypochromasia Marked; Luc # (Auto) 0.14; Luc % (Auto) 1; Lymphocytes # (A) 1.2 k/uL (1.0-4.8); Lymphocytes % (A) 9 %; MCH 27.3 pg (25.0-35.0); MCHC 30.1 g/dL (31.0-37.0); MCV 90.7 fL (80.0-100.0); Monocytes # (A) 0.4 k/uL (0-1.0); Monocytes % (A) 3 %; Neutrophils % (A) 88 %; Poikilocytosis Slight; RBC 3.74 m/uL (4.30-5.90); RDW 14.5 % (11.5-15.5); WBC 13.7 k/uL (3.8-10.6); WBC (Perox) 14.09
[2016-12-20] MEDS: IPRATROPIUM-ALBUTEROL 3 ML NEB INHALATION PRN ×3 (12:30→20:48)
[2016-12-20 12:40] LABS: Glucose,Whole Blood 168 mg/dL (75-99)
[2016-12-20] MEDS: TIOTROPIUM 18 MCG/PUFF INHALER INHALATION SCH ×2 (13:22→14:37)
[2016-12-20] MEDS: FOLIC ACID 1 MG TAB PO SCH (13:23)
[2016-12-20] MEDS: MULTIVITAMINS, THERA 1 EACH TAB PO SCH (13:23)
[2016-12-20] MEDS: THIAMINE 100 MG TAB PO SCH (13:24)
--- NOTE | 2016-12-20 15:40 | P.PN ---
Subjective 56-year-old male patient, known history of COPD and known history of previous DVT about the pulmonary embolism that occurred more than a year ago was admitted on Xarelto on outpatient basis, coming into the hospital because of increased shortness of breath. The patient has undergone multilevel lumbar laminectomy and fusion of the lumbar spine at [facility] by Dr. Dillard. Postop, the patient was discharged home and he was unable to get back to his life in general. He was still having difficulty with weakness and mobility in his lower extremities and he was getting progressively more short of breath. For all this reasons the patient decided to come in to the hospital. No chest pain. No cough or sputum production. No change in mental status. CAT scan of the lumbosacral spine was done and the time of admission showed essentially postsurgical changes consistent with laminectomy and fusion. His surgical wound site over the lower lumbar spinous dry clean and intact. Chest x-ray at time of admission showed no acute abnormalities. No swelling in lower extremities. No pleurisy. No hemoptysis. No chest pain. No change in mental status. He is known to have underlying schizophrenia in addition to multiple medical positive, his including severe bronchial asthma/COPD, previous history of DVT and pulmonary embolism, degenerative disc disease, anxiety, schizophrenia, hypertension, GERD. Noted the patient had quit smoking. The patient was maintained on Incruse and Advair and theophylline on an outpatient basis regarding his COPD. The patient was seen again today 12/19/2016 in follow-up on the regular medical floor. He is awake and alert in no acute distress. He has been working well with physical therapy and the plan is for discharge today to inpatient rehabilitation center. He denies any worsening shortness of breath, cough or congestion. He is maintaining good O2 saturations in the 90s on room air. His pain is well controlled. On 12/20/2016 the patient is being seen in follow-up. COPD being optimized further. His not having any major stroke difficulties. The patient is being treated with bronchodilators and systemic steroids. The patient is also awaiting his transfer for rehabilitation in regards to his recent back surgery. Outpatient medication with including combination of Incruse, Advair, theophylline Objective - Vital Signs Vital signs: Vital Signs Temp 96.7 F L 12/20/16 15:00 Pulse 96 12/20/16 15:00 Resp 16 12/20/16 15:00 BP 117/68 12/20/16 15:00 Pulse Ox 97 12/20/16 15:00 Intake & Output 12/19/16 12/20/16 12/20/16 18:59 06:59 18:59 Intake Total 300 440 Output Total 800 3200 500 Balance -500 -3200 -60 Intake: IV 300 Sodium Chloride 0.9% 1, 300 000 ml @ 50 mls/hr IV . Q20H AMBAR Rx#:[id number] Oral 440 Output: Urine 800 3200 500 Other: Voiding Method Urinal # Voids 1 - Exam Head exam was generally normal. There was no scleral icterus or corneal arcus. Mucous membranes were moist.Neck was supple and without jugular venous distension, thyromegaly, or carotid bruits. Carotids were easily palpable bilaterally. There was no adenopathy. Lung sounds are diminished bilaterally along with some prolongation of expiratory phase of breathing and scattered external wheeze.Cardiac exam revealed the PMI to be normally situated and sized. The rhythm was regular and no extrasystoles were noted during several minutes of auscultation. The first and second heart sounds were normal and physiologic splitting of the second heart sound was noted. There were no murmurs , rubs, clicks, or gallops. Abdominal exam revealed normal bowel sounds. The abdomen was soft, non-tender, and without masses, organomegaly, or appreciable enlargement of the abdominal aorta. Examination of the extremities revealed easily palpable radial, femoral and pedal pulses. There was no cyanosis, clubbing or edema. - Labs CBC & Chem 7: 12/20/16 09:23 12/20/16 09:20 Labs: Abnormal Lab Results - Last 24 Hours (Table) 12/19/16 12/19/16 12/20/16 Range/Units 17:05 21:10 07:20 WBC (3.8-10.6) k/uL RBC (4.30-5.90) m/uL Hgb (13.0-17.5) gm/dL Hct (39.0-53.0) % MCHC (31.0-37.0) g/dL Neutrophils # (1.3-7.7) k/uL Glucose (74-99) mg/dL POC Glucose (mg/dL) 142 H 159 H 110 H (75-99) mg/dL 12/20/16 12/20/16 12/20/16 Range/Units 09:20 09:23 12:31 WBC 13.7 H (3.8-10.6) k/uL RBC 3.74 L (4.30-5.90) m/uL Hgb 10.2 L (13.0-17.5) gm/dL Hct 33.9 L (39.0-53.0) % MCHC 30.1 L (31.0-37.0) g/dL Neutrophils # 12.0 H (1.3-7.7) k/uL Glucose 214 H (74-99) mg/dL POC Glucose (mg/dL) 168 H (75-99) mg/dL Assessment and Plan Plan: Assessment 1 acute COPD exacerbation with secondary shortness of breath 2 degenerative disc disease involving the lumbar spine status post lumbar laminectomy and decompression, multilevel. 3 history of cavitating right upper lobe pneumonia, recovered 4 History of bilateral DVT and pulmonary embolism, maintained on long-term articulation with Xarelto 5 chronic anxiety/depression/schizophrenia 6 hyperlipidemia 7 GE reflux 8 chronic back pain Plan the patient is doing better. The patient's COPD is being further optimized. No magistral difficulties for now. Continue rehabilitation on outpatient basis for ECF. See me back in the office in a few weeks time. The patient will be on anticoagulation with Xarelto even on outpatient basis.
[2016-12-20 17:22] LABS: Glucose,Whole Blood 187 mg/dL (75-99)
--- NOTE | 2016-12-20 19:19 | PN ---
DATE OF SERVICE : 12/20/2016 This 56-year-old gentleman who was admitted with acute chronic obstructive pulmonary disease, acute exacerbation is being closely monitored. Seen and evaluated the patient along with nurse practitioner. Please refer to the nurse practitioner notes and impression documented as a scribe for further information. Will recommend PT, OT evaluation and possible ECF rehab. Further recommendations to follow.
[2016-12-20] MEDS: LEVOFLOXACIN 500 MG TAB PO SCH (21:32)
[2016-12-20] MEDS: MELATONIN 3 MG TABLET PO SCH (21:32)
[2016-12-20] MEDS: PRAVASTATIN SODIUM 20 MG TAB PO SCH (21:33)
[2016-12-20] MEDS: traZODone HCL 50 MG TAB PO SCH (21:33)
[2016-12-20 21:44] LABS: Glucose,Whole Blood 137 mg/dL (75-99)
[2016-12-21] MEDS: oxyCODONE-APAP 10-325MG 1 EACH TAB PO PRN ×4 (00:31→12:29)
[2016-12-21] MEDS: LEVOTHYROXINE 50 MCG TAB PO SCH (06:26)
[2016-12-21 07:29] LABS: Glucose,Whole Blood 113 mg/dL (75-99)
[2016-12-21] MEDS: INSULIN LISPRO (humaLOG) 300 UNIT/3 ML VIAL SQ SCH (07:39)
[2016-12-21 07:40] VITALS: BP 124/74; RESP 18; TEMP 97.4
[2016-12-21] MEDS: IPRATROPIUM-ALBUTEROL 3 ML NEB INHALATION PRN ×2 (08:23→11:38)
[2016-12-21] MEDS: TIOTROPIUM 18 MCG/PUFF INHALER INHALATION SCH (08:23)
[2016-12-21] MEDS: BUDESONIDE 1 MG/2 ML NEBU INHALATION SCH (08:23)
[2016-12-21] MEDS: FORMOTEROL FUMARATE 20 MCG/2 ML NEBU INHALATION SCH (08:23)
[2016-12-21] MEDS: PANTOPRAZOLE 40 MG TABLET PO SCH (08:32)
[2016-12-21] MEDS: RIVAROXABAN 10 MG TAB PO SCH (08:32)
[2016-12-21] MEDS: CITALOPRAM HYDROBROMIDE 20 MG TAB PO SCH (08:34)
[2016-12-21] MEDS: hydrOXYzine HCL 10 MG TAB PO SCH (08:34)
[2016-12-21] MEDS: BACLOFEN 10 MG TAB PO SCH (08:34)
[2016-12-21] MEDS: FAMOTIDINE 20 MG TAB PO SCH (08:34)
[2016-12-21] MEDS: FUROSEMIDE 20 MG TAB PO SCH (08:34)
[2016-12-21] MEDS: FLUTICASONE 50MCG/SPRAY NASAL 16GM EA NOSTRIL SCH (08:34)
[2016-12-21] MEDS: LOPERAMIDE 2 MG CAP PO SCH (08:35)
[2016-12-21] MEDS: SERTRALINE 50 MG TAB PO SCH (08:36)
[2016-12-21] MEDS: THEOPHYLLINE 24 HOUR 200 MG CAP.ER.24H PO SCH (08:36)
[2016-12-21] MEDS: LOSARTAN 50 MG TAB PO SCH (08:36)
[2016-12-21] MEDS: MONTELUKAST 10 MG TAB PO SCH (08:36)
[2016-12-21] MEDS: predniSONE 20 MG TAB PO SCH (08:36)
[2016-12-21] MEDS: LORATADINE 10 MG TAB PO SCH (08:36)
[2016-12-21] MEDS: PALIPERIDONE 6 MG TAB.ER.24 PO SCH (08:36)
[2016-12-21 08:50] LABS: Basophils % (A) 0 %; CH 27.6; Eosinophils % (A) 0 %; HCT 31.1 % (39.0-53.0); HDW 3.56; HGB 9.5 gm/dL (13.0-17.5); Hypochromasia Marked; Luc # (Auto) 0.25; Luc % (Auto) 2; Lymphocytes # (A) 2.1 k/uL (1.0-4.8); Lymphocytes % (A) 19 %; MCH 27.3 pg (25.0-35.0); MCHC 30.6 g/dL (31.0-37.0); MCV 89.2 fL (80.0-100.0); Mean Platelet Volume 6.8; Monocytes # (A) 0.5 k/uL (0-1.0); Monocytes % (A) 4 %; Neutrophils # (A) 8.2 k/uL (1.3-7.7); Neutrophils % (A) 74 %; Poikilocytosis Slight; RBC 3.49 m/uL (4.30-5.90); RDW 14.7 % (11.5-15.5)
[2016-12-21 09:12] LABS: Anion Gap 8 mmol/L; Blood Urea Nitrogen 16 mg/dL (9-20); Calcium 9.3 mg/dL (8.4-10.2); Carbon Dioxide 30 mmol/L (22-30); Chloride 101 mmol/L (98-107); Glucose 158 mg/dL (74-99); Non-African American GFR(MDRD) >60 (>60 ml/min/1.73 sqM); Potassium 4.1 mmol/L (3.5-5.1); Sodium 139 mmol/L (137-145)
[2016-12-21 12:25] VITALS: PULSE 94
[2016-12-21] MEDS: MULTIVITAMINS, THERA 1 EACH TAB PO SCH (12:29)
[2016-12-21] MEDS: FOLIC ACID 1 MG TAB PO SCH (12:29)
[2016-12-21] MEDS: THIAMINE 100 MG TAB PO SCH (12:29)
--- NOTE | 2016-12-22 12:43 | DS ---
DATE OF ADMISSION: 12/18/2016 DATE OF DISCHARGE: 12/21/2016 FINAL DIAGNOSES: 1. Chronic obstructive pulmonary disease, acute exacerbation with acute purulent tracheobronchitis with cavitating right upper lobe pneumonia, improved, possibly anaerobic or gram-negative. 2. Anemia, normocytic, unknown etiology. 3. Hypernatremia. 4. Hypoalbuminemia with mild to moderate protein calorie malnutrition. 5. Increased AST. 6. Change in mental status, metabolic encephalopathy, multifactorial. 7. Recent back surgery for severe degenerative joint disease with gait dysfunction. 8. History of chronic and intermittent asthma with chronic obstructive pulmonary disease. 9. History of deep venous thrombosis and bilateral pulmonary embolism, anticoagulation on Xarelto. 10. Gastroesophageal reflux disease. 11. Hypertension. 12. Hyperlipidemia. 13. Chronic hypoxic respiratory failure, on home oxygen. 14. History of Clostridium difficile. 15. History of anxiety and schizophrenia. 16. Remote history of nicotine dependence. 17. FULL CODE. DISCHARGE DISPOSITION: The patient will be discharged in stable condition with guarded prognosis. HISTORY OF PRESENT ILLNESS: This 56-year-old gentleman with a past medical history of multiple medical problems was admitted with COPD, acute exacerbation as well as tracheobronchitis, and the patient also had history of pneumonia as mentioned earlier. The patient treated symptomatically. PT, OT evaluated the patient and recommended to consider rehab but; however, the patient did not get clearance from insurance. Overall patient made significant improvement and WBC 11, hemoglobin is 9.5. Patient will be discharged in stable condition with guarded prognosis. On exam, vitals are stable. CARDIOVASCULAR: S1, S2. RESPIRATORY: Breath sounds diminished in bases. Scattered rhonchi. ABDOMEN: Soft. NERVOUS SYSTEM: No focal deficits. construction worker has worked with the patient for better supervision also. DISCHARGE ADVICE: 1. Diet is cardiac. 2. Activity limited until follow-up. 3. Follow up with Dr. Adams in 2 to 3 days. 4. Follow with Dr. Ralph as recommended. MEDICATIONS: 1. Xanax 0.5 daily p.r.n. 2. ProAir HFA 2 puffs b.i.d. 3. Lioresal 20 mg b.i.d. 4. Advair 1 to 2 puffs b.i.d. 5. Ceretec 10 mg p.o. daily. 6. Celexa 20 mg p.o. daily. 7. Flonase 2 sprays daily. 8. Folic acid 1 mg p.o. daily. 9. Lasix 20 mg p.o. daily. 10. Albuterol Atrovent q.i.d. and p.r.n. 11. Levaquin 500 mg q.h.s. for 5 days. 12. Synthroid 50 mcg p.o. 13. Imodium 2 mg p.o. q.i.d. 14. Cozaar 50 mg p.o. daily. 15. Melatonin 3 mg q.h.s. 16. Singulair 10 mg p.o. daily. 17. Multivitamin 1 p.o. daily. 18. Omeprazole 20 mg p.o. daily. 19. Invega 6 mg p.o. daily. 20. Pravachol 20 mg q.h.s. 21. Xarelto 20 mg p.o. daily. 22. Daliresp 500 mcg p.o. daily. 23. Zoloft 50 mg p.o. daily. 24. Yoav-24 200 mcg p.o. b.i.d. 25. Vitamin B1 thiamine 100 mg p.o. daily. 26. Incruse 1 puff daily. 27. Atarax 10 mg p.o. t.i.d. 28. Mitral dose pack. 29. Oxycodone 10 mg q.4 p.r.n. 30. Requip 1 mg q.h.s. 31. Trazodone 50 mg p.o. q.h.s. Once again, the patient will be discharged in stable condition with guarded prognosis.
== END 2016-12-21 12:51 | disposition home health service (06) | DRG 190 ==
LOC: EC 12:10 → 4MS4W 16:05 → INTOOBSV 16:05 → 4MS4W 18:05 → OBSVTOIN 12-18 14:03
PROVIDERS: ADMIT Internal Medicine; ATTEND Internal Medicine
DX: J44.0 Chronic obstructive pulmonary disease with (acute) lower respiratory infection (principal); J15.6 Pneumonia due to other Gram-negative bacteria; G93.41 Metabolic encephalopathy; J96.11 Chronic respiratory failure with hypoxia; E44.0 Moderate protein-calorie malnutrition; E87.1 Hypo-osmolality and hyponatremia; J20.9 Acute bronchitis, unspecified; J44.1 Chronic obstructive pulmonary disease with (acute) exacerbation; D64.9 Anemia, unspecified; E78.5 Hyperlipidemia, unspecified; F20.9 Schizophrenia, unspecified; F32.9 Major depressive disorder, single episode, unspecified; F41.9 Anxiety disorder, unspecified; G89.29 Other chronic pain; I10 Essential (primary) hypertension; J45.20 Mild intermittent asthma, uncomplicated; K21.9 Gastro-esophageal reflux disease without esophagitis; M51.36 Other intervertebral disc degeneration, lumbar region; R29.6 Repeated falls; T38.0X5A Adverse effect of glucocorticoids and synthetic analogues, initial encounter; R73.9 Hyperglycemia, unspecified; M54.9 Dorsalgia, unspecified; R26.9 Unspecified abnormalities of gait and mobility; Z99.81 Dependence on supplemental oxygen; Z79.01 Long term (current) use of anticoagulants; Z79.52 Long term (current) use of systemic steroids; Z79.899 Other long term (current) drug therapy; Z88.0 Allergy status to penicillin; Z88.6 Allergy status to analgesic agent; Z87.891 Personal history of nicotine dependence
CPT/HCPCS: 36415; 71020; 72131; 80048; 80053; 80306; 81001; 81003; 83036; 83605; 85025; 87040; 87502; 94640; 94760; 96361; 96365; 96374; 96375; 96376; 99285

== ENCOUNTER → 2016-12-31 | Outpatient (CLI) | payer MEDICARE, OTHER ==
--- NOTE | 2016-12-31 12:11 | XR ---
Lumbar spine HISTORY: Spondylosis 3 views of the lumbar spine correlated to prior exam 13 November 2016 Interval posterior fusion at L2-3 laminectomy, previous lumbar fusion at L3-4, hardware has been grecia chavez from prior fusion. Intervertebral spacing material again noted at L4-5. There is a levoscoliosis as on prior exam. Lumbar vertebral bodies show stable height and alignment. Multilevel spondylosis ag ain noted. Sclerosis in the posterior elements compatible with facet arthropathy. IMPRESSION: Interval surgery. Neurosurgical follow-up.
== END | disposition home or self-care (01) ==
LOC: RADXRMAIN 11:40
DX: M47.816 Spondylosis without myelopathy or radiculopathy, lumbar region (principal); Z98.1 Arthrodesis status
CPT/HCPCS: 72100

== ENCOUNTER 2017-01-12 14:48 | Inpatient (IN) | payer MEDICARE, OTHER ==
[2017-01-12] MEDS ORDERED: NALOXONE 0.4 MG/ML 10 ML VIAL IVP STA (15:21)
--- NOTE | 2017-01-12 15:21 | ED ---
General Adult HPI - General Chief complaint: Altered Mental Status Stated complaint: alter mental status Time Seen by Provider: 01/12/17 14:53 Source: family, EMS Mode of arrival: EMS Limitations: altered mental status - History of Present Illness Initial comments: 56-year-old male began with slurring of speech last night has been very weak not eating or vomiting no chest pain no shortness breath is having some lower back pain. He does use oxycodone. No fever or chills they have noticed a cough. Patient has no history of diabetes or heart disease, states has been a remote history of stroke - Related Data Home Medications Medication Instructions Recorded Confirmed Paliperidone [Invega] 6 mg PO DAILY 06/08/14 01/12/17 traZODone HCL [traZODone] 150 mg PO HS 06/08/14 01/12/17 Losartan [Cozaar] 50 mg PO DAILY 07/09/15 01/12/17 rOPINIRole HCL [Requip] 1 mg PO HS 07/09/15 01/12/17 Pravastatin Sodium [Pravachol] 20 mg PO HS 08/27/15 01/12/17 Rivaroxaban [Xarelto] 20 mg PO DAILY 12/21/15 01/12/17 Fluticasone/Salmeterol [Advair Hfa 2 puff INHALATION RT-BID 12/10/16 01/12/17 230-21 Mcg Inhaler] Omeprazole 20 mg PO DAILY 12/10/16 01/12/17 Umeclidinium Leola [Incruse 1 puff INHALATION RT-DAILY 12/10/16 01/12/17 Ellipta] Albuterol Sulfate [Proair Hfa] 2 puff INHALATION RT-QID PRN 12/17/16 01/12/17 Melatonin 3 mg PO HS 12/17/16 01/12/17 Diazepam [Valium] 5 mg PO Q8H PRN 01/12/17 01/12/17 Metoprolol Tartrate [Lopressor] 25 mg PO DAILY 01/12/17 01/12/17 Roflumilast [Daliresp] 500 mcg PO DAILY 01/12/17 01/12/17 oxyCODONE-APAP 10-325MG [Percocet 1 - 2 tab PO Q6H PRN 04/08/17 04/08/17 10-325 mg] predniSONE 20 mg PO DAILY 01/12/17 01/12/17 predniSONE See Taper PO DAILY 01/12/17 01/12/17 Previous Rx's Medication Instructions Recorded Ipratropium-Albuterol Nebulize 3 ml INHALATION QID #120 neb 12/21/16 [Duoneb 0.5 mg-3 mg/3 ml Soln] Allergies Allergy/AdvReac Type Severity Reaction Status Date / Time ibuprofen [From Motrin] Allergy Unknown Verified 01/12/17 15:30 Penicillins Allergy "PASSED Verified 01/12/17 15:30 OUT", SOB Review of Systems ROS Statement: Those systems with pertinent positive or pertinent negative responses have been documented in the HPI. ROS Other: All systems not noted in ROS Statement are negative. Constitutional: Denies: fever ENT: Denies: ear pain Respiratory: Denies: cough Cardiovascular: Denies: chest pain Gastrointestinal: Denies: abdominal pain, nausea, vomiting, diarrhea Genitourinary: Denies: urgency, dysuria, frequency Skin: Denies: rash Neurological: Denies: headache Psychiatric: Denies: anxiety Hematological/Lymphatic: Denies: easy bleeding, easy bruising Past Medical History Past Medical History: Asthma, COPD, Deep Vein Thrombosis (DVT), GERD/Reflux, Hyperlipidemia, Hypertension, Musculoskeletal Disorder, Pneumonia, Pulmonary Embolus (PE) Additional Past Medical History / Comment(s): COPD, history of DVT and bilateral pulmonary embolism, history of a cavitating right upper lobe pneumonia related to gram-negative, the patient has recovered and the patient has no evidence of any malignancy, hyperlipidemia, hypertension, anxiety, schizophrenia, degenerative arthritis and chronic back pain, GE reflux, history of C. diff colitis. History of Any Multi-Drug Resistant Organisms: None Reported Date of last positivie culture/infection: None MDRO Source:: None Past Surgical History: Back Surgery, Hernia Repair, Orthopedic Surgery Additional Past Surgical History / Comment(s): neck & shoulder & elbow surg., STOMACH SURGERY. Back surgery x 4 - last surgery February 2015 Past Anesthesia/Blood Transfusion Reactions: No Reported Reaction Additional Past Anesthesia/Blood Transfusion Reaction / Comment(s): couldn't urinate after a surgery, Past Psychological History: Anxiety, Schizophrenia Smoking Status: Former smoker Past Alcohol Use History: None Reported Additional Past Alcohol Use History / Comment(s): QUIT SMOKING JUL 2014, STARTED SMOKING AT AGE 14/ 1PPD Past Drug Use History: None Reported - Past Family History Mother History Unknown: Yes Family Medical History: Cancer, CVA/TIA Additional Family Medical History / Comment(s): breast cancer General Exam Limitations: altered mental status General appearance: alert, in no apparent distress Head exam: Present: atraumatic Eye exam: Present: PERRL, EOMI ENT exam: Present: normal exam, normal oropharynx, mucous membranes moist Neck exam: Present: tenderness Respiratory exam: Present: rhonchi (Bilateral) Cardiovascular Exam: Present: regular rate, normal heart sounds GI/Abdominal exam: Present: soft. Absent: tenderness, guarding Neurological exam: Present: alert, CN II-XII intact Psychiatric exam: Present: normal affect, normal mood Skin exam: Present: warm, dry Course Vital Signs 01/12/17 01/12/17 01/12/17 14:50 15:20 15:29 Temperature 98.2 F Pulse Rate 77 79 77 Respiratory 20 20 18 Rate Blood Pressure 64/41 75/45 90/56 O2 Sat by Pulse 97 97 97 Oximetry 01/12/17 16:03 Temperature Pulse Rate 86 Respiratory 20 Rate Blood Pressure 97/56 O2 Sat by Pulse 95 Oximetry Medical Decision Making - Medical Decision Making Patient's CT shows some indistinctness which may reveal an early stroke. We have spoken to the on-call for Dr. Adams, Dr Jackson, patient's hypotension does not appear to be secondary to bleeding but rather perhaps some excessive medication. Patient will be admitted to telemetry IV fluids holding his medication. - Lab Data Result diagrams: 01/12/17 15:11 01/12/17 15:11 Lab Results 01/12/17 01/12/17 01/12/17 Range/Units 15:11 15:11 15:11 WBC 10.6 (3.8-10.6) k/uL RBC 3.89 L (4.30-5.90) m/uL Hgb 10.4 L (13.0-17.5) gm/dL Hct 34.0 L (39.0-53.0) % MCV 87.6 (80.0-100.0) fL MCH 26.9 (25.0-35.0) pg MCHC 30.7 L (31.0-37.0) g/dL RDW 15.0 (11.5-15.5) % Plt Count 385 (150-450) k/uL Neutrophils % 81 % Lymphocytes % 12 % Monocytes % 5 % Eosinophils % 0 % Basophils % 0 % Neutrophils # 8.6 H (1.3-7.7) k/uL Lymphocytes # 1.3 (1.0-4.8) k/uL Monocytes # 0.5 (0-1.0) k/uL Eosinophils # 0.0 (0-0.7) k/uL Basophils # 0.0 (0-0.2) k/uL Hypochromasia Marked PT (9.0-12.0) sec INR (<1.1) APTT (22.0-30.0) sec Sodium 134 L (137-145) mmol/L Potassium 4.8 (3.5-5.1) mmol/L Chloride 103 (98-107) mmol/L Carbon Dioxide 26 (22-30) mmol/L Anion Gap 5 mmol/L BUN 16 (9-20) mg/dL Creatinine 1.29 H (0.66-1.25) mg/dL Est GFR (MDRD) Af Amer >60 (>60 ml/min/1.73 sqM) Est GFR (MDRD) Non-Af 57 (>60 ml/min/1.73 sqM) Glucose 118 H (74-99) mg/dL Plasma Lactic Acid Carlos (0.7-2.0) mmol/L Calcium 8.6 (8.4-10.2) mg/dL Total Bilirubin 0.3 (0.2-1.3) mg/dL AST 13 L (17-59) U/L ALT 20 L (21-72) U/L Alkaline Phosphatase 71 (38-126) U/L Total Creatine Kinase 21 L (55-170) U/L CK-MB (CK-2) 0.3 (0.0-2.4) ng/mL CK-MB (CK-2) Rel Index 1.4 Troponin I <0.012 (0.000-0.034) ng/mL Total Protein 5.4 L (6.3-8.2) g/dL Albumin 2.6 L (3.5-5.0) g/dL Stool Occult Blood (Negative) 04/08/17 04/08/17 04/08/17 Range/Units 15:11 15:11 15:18 WBC (3.8-10.6) k/uL RBC (4.30-5.90) m/uL Hgb (13.0-17.5) gm/dL Hct (39.0-53.0) % MCV (80.0-100.0) fL MCH (25.0-35.0) pg MCHC (31.0-37.0) g/dL RDW (11.5-15.5) % Plt Count (150-450) k/uL Neutrophils % % Lymphocytes % % Monocytes % % Eosinophils % % Basophils % % Neutrophils # (1.3-7.7) k/uL Lymphocytes # (1.0-4.8) k/uL Monocytes # (0-1.0) k/uL Eosinophils # (0-0.7) k/uL Basophils # (0-0.2) k/uL Hypochromasia PT 11.0 (9.0-12.0) sec INR 1.1 (<1.1) APTT 22.5 (22.0-30.0) sec Sodium (137-145) mmol/L Potassium (3.5-5.1) mmol/L Chloride (98-107) mmol/L Carbon Dioxide (22-30) mmol/L Anion Gap mmol/L BUN (9-20) mg/dL Creatinine (0.66-1.25) mg/dL Est GFR (MDRD) Af Amer (>60 ml/min/1.73 sqM) Est GFR (MDRD) Non-Af (>60 ml/min/1.73 sqM) Glucose (74-99) mg/dL Plasma Lactic Acid Carlos 1.8 (0.7-2.0) mmol/L Calcium (8.4-10.2) mg/dL Total Bilirubin (0.2-1.3) mg/dL AST (17-59) U/L ALT (21-72) U/L Alkaline Phosphatase (38-126) U/L Total Creatine Kinase (55-170) U/L CK-MB (CK-2) (0.0-2.4) ng/mL CK-MB (CK-2) Rel Index Troponin I (0.000-0.034) ng/mL Total Protein (6.3-8.2) g/dL Albumin (3.5-5.0) g/dL Stool Occult Blood Negative (Negative) 01/12/17 15:23 EKG 01/12/2017 1455 ventricular rate 70 bpm, TN interval 134 ms, QRS duration 88 ms, QT interval 364 ms normal sinus rhythm J-point elevation in lead 2 and 3 probably early repolarization can be secondary to his uneven baseline into looks like one week has no J-point his prior from irregular baseline - Radiology Data Radiology results: report reviewed CT shows subtle blurring of the dow and white matter suggestive perhaps early ischemia. Critical Care Time Critical Care Time: Yes Total Critical Care Time: 30 Disposition Clinical Impression: Hypotension, Dysphasia, CVA (cerebral vascular accident) Disposition: ADMITTED IP TO THIS HOSP Condition: Fair Time of Disposition: 16:53
[2017-01-12] MEDS ORDERED: SODIUM CHLORIDE 0.9% 1,000 ML IV STA (15:22)
[2017-01-12 15:28] LABS: Basophils % (A) 0 %; CH 26.2; CHCM 29.9; Eosinophils % (A) 0 %; HDW 3.27; HGB 10.4 gm/dL (13.0-17.5); Hypochromasia Marked; Luc # (Auto) 0.18; Luc % (Auto) 2; Lymphocytes # (A) 1.3 k/uL (1.0-4.8); Lymphocytes % (A) 12 %; MCH 26.9 pg (25.0-35.0); MCHC 30.7 g/dL (31.0-37.0); MCV 87.6 fL (80.0-100.0); Mean Platelet Volume 6.4; Monocytes # (A) 0.5 k/uL (0-1.0); Monocytes % (A) 5 %; Neutrophils # (A) 8.6 k/uL (1.3-7.7); Neutrophils % (A) 81 %; RBC 3.89 m/uL (4.30-5.90); WBC 10.6 k/uL (3.8-10.6); WBC (Perox) 11.48
[2017-01-12 15:31] LABS: INR 1.1 (<1.1); Partial Thromboplastin Time 22.5 sec (22.0-30.0)
[2017-01-12 15:40] LABS: Creatine Kinase 21 U/L (55-170)
[2017-01-12 15:41] LABS: ALT 20 U/L (21-72); AST 13 U/L (17-59); Alkaline Phosphatase 71 U/L (38-126); Anion Gap 5 mmol/L; Blood Urea Nitrogen 16 mg/dL (9-20); Calcium 8.6 mg/dL (8.4-10.2); Carbon Dioxide 26 mmol/L (22-30); Chloride 103 mmol/L (98-107); Glucose 118 mg/dL (74-99); Non-African American GFR(MDRD) 57 (>60 ml/min/1.73 sqM); Potassium 4.8 mmol/L (3.5-5.1); Sodium 134 mmol/L (137-145); Total Bilirubin 0.3 mg/dL (0.2-1.3); Total Protein 5.4 g/dL (6.3-8.2)
[2017-01-12 15:53] LABS: Creatine Kinase MB 0.3 ng/mL (0.0-2.4); Troponin I <0.012 ng/mL (0.000-0.034)
[2017-01-12] MEDS: SODIUM CHLORIDE 0.9% 1,000 ML IV SCH (16:12)
--- NOTE | 2017-01-12 16:27 | CT ---
EXAMINATION TYPE: CT brain wo con DATE OF EXAM: 01/12/2017 4:04 PM COMPARISON: 02/02/2016 HISTORY: 56-year-old male appears confused and has difficulty following directions. Neurologic defici ts. TECHNIQUE: Examination was done in axial plane without intravenous contrast. Coronal and sagittal r econstructions performed. CT DLP: 2090.2 mGycm Automated exposure control for dose reduction was used. FINDINGS: Possible subtle loss of dow-white matter differentiation in the posterior right parietal lobe, axial images 27 and 28 and coronal image 46. No mass effect or midline shift or extra-axial fluid collecti on. No evidence for acute intracranial hemorrhage. Paranasal sinuses and mastoid air cells are well pneumatized. Orbits and globes are intact. IMPRESSION: Possible subtle loss of dow-white matter differentiation in the right parietal lobe could represent early acute ischemic change. No mass effect or acute intracranial hemorrhage. Follow-up CT or MRI. Findings called to Dr. Santos in the ER at approximately 4:23 PM.
--- NOTE | 2017-01-12 16:30 | XR ---
EXAMINATION TYPE: XR chest 1V portable DATE OF EXAM: 01/12/2017 3:41 PM Comparison: 12/17/2016 Clinical History: 56-year-old male with pain and cough, altered mental status Findings: Heart appears normal size. Rightward patient rotation alters the normal cardiomediastinal contours. M ild diffuse interstitial prominence is unchanged and appears chronic. No consolidation or pleural eff usion. ACDF hardware. Impression: Chronic changes, possible chronic bronchitis/asthma. No acute change identified.
[2017-01-12] MEDS ORDERED: NALOXONE 0.4 MG/ML 1 ML VIAL IV PRN (16:54)
[2017-01-12] MEDS ORDERED: HYDROCORTISONE SUCCINATE 100 MG/2 ML VIAL IV STA (17:07)
[2017-01-12] MEDS ORDERED: HYDROmorphone 1 MG/ML 1 ML SYRINGE IM STA (17:25)
[2017-01-12 18:24] VITALS: BMI 29.2
--- NOTE | 2017-01-12 20:32 | P.CNNES ---
History of Present Illness Consult date: 01/12/17 Reason for Consult: Patient with slurred speech and possible stroke. History of Present Illness: This patient is a 56-year-old right-handed white male who apparently yesterday evening developed some slurring of his speech. He states he has a history of COPD and asthma and was having difficulty breathing as well as slurring his speech last night. His girlfriend apparently noted that this morning he continued to have difficulties with his speech and increased weakness. She decided to bring him to the emergency room for further evaluation. Patient was seen in the ER by Dr. Vick who felt the patient had significant evidence of hypotension. His initial blood pressure in the ER was 64/41. He was given IV fluids and resuscitated quickly. He was sent for a computed tomography scan of the brain for further evaluation of his slurred speech. CAT scan of the brain revealed a subtle hypodensity in the right parietal lobe suggesting ischemic stroke. Patient was subsequently admitted to the hospital for further stroke evaluation. Patient also has a history of chronic pain and does take several pain medications including oxycodone. He is also on Xarelto for history of DVT and pulmonary embolism in the past. As noted computed tomography scan of the brain revealed a hypodensity suggesting subacute versus acute stroke. There was no evidence of any hemorrhage. The patient states his speech is more difficult for him to articulate today as compared to previous days. He does follow with Dr. Ralph for management of his underlying COPD and asthma symptoms. Chest x-ray done in the ER revealed chronic bronchitis/asthma findings. The patient denies any headache. He states he does feel weak on his right side mostly in the right leg. He states he was having difficulty walking at home yesterday and today. He is not a very good historian. He is now been admitted and neurology has been consulted for further evaluation and recommendations. Review of Systems Constitutional: Denies chills, Denies fever Eyes: denies blurred vision, denies pain Ears, nose, mouth and throat: Denies headache, Denies sore throat Cardiovascular: Denies chest pain, Denies shortness of breath Respiratory: Reports congestion, Reports cough with sputum, Reports dyspnea, Reports excessive sputum, Reports home oxygen, Denies cough Gastrointestinal: Denies abdominal pain, Denies diarrhea, Denies nausea, Denies vomiting Musculoskeletal: Denies myalgias Integumentary: Denies pruritus, Denies rash Neurological: Reports change in mentation, Reports change in speech, Reports confusion, Reports memory loss, Denies numbness, Denies weakness Psychiatric: Denies anxiety, Denies depression Endocrine: Denies fatigue, Denies weight change Past Medical History Past Medical History: Asthma, COPD, Deep Vein Thrombosis (DVT), GERD/Reflux, Hyperlipidemia, Hypertension, Musculoskeletal Disorder, Pneumonia, Pulmonary Embolus (PE) Additional Past Medical History / Comment(s): COPD, history of DVT and bilateral pulmonary embolism, history of a cavitating right upper lobe pneumonia related to gram-negative, the patient has recovered and the patient has no evidence of any malignancy, hyperlipidemia, hypertension, anxiety, schizophrenia, degenerative arthritis and chronic back pain, GE reflux, history of C. diff colitis. History of Any Multi-Drug Resistant Organisms: None Reported Date of last positivie culture/infection: None MDRO Source:: None Past Surgical History: Back Surgery, Hernia Repair, Orthopedic Surgery Additional Past Surgical History / Comment(s): neck & shoulder & elbow surg., STOMACH SURGERY. Back surgery x 4 - last surgery February 2015 Past Anesthesia/Blood Transfusion Reactions: No Reported Reaction Additional Past Anesthesia/Blood Transfusion Reaction / Comment(s): couldn't urinate after a surgery, Past Psychological History: Anxiety, Schizophrenia Smoking Status: Current every day smoker Past Alcohol Use History: None Reported Additional Past Alcohol Use History / Comment(s): QUIT SMOKING JUL 2014, STARTED SMOKING AT AGE 14/ 1PPD Past Drug Use History: None Reported - Past Family History Mother History Unknown: Yes Family Medical History: Cancer, CVA/TIA Additional Family Medical History / Comment(s): breast cancer Medications and Allergies Home Medications Medication Instructions Recorded Confirmed Type Paliperidone [Invega] 6 mg PO DAILY 06/08/14 01/12/17 History traZODone HCL [traZODone] 150 mg PO HS 06/08/14 01/12/17 History Losartan [Cozaar] 50 mg PO DAILY 07/09/15 01/12/17 History rOPINIRole HCL [Requip] 1 mg PO HS 07/09/15 01/12/17 History Pravastatin Sodium [Pravachol] 20 mg PO HS 08/27/15 01/12/17 History Rivaroxaban [Xarelto] 20 mg PO DAILY 12/21/15 01/12/17 History Fluticasone/Salmeterol [Advair Hfa 2 puff INHALATION RT-BID 12/10/16 01/12/17 History 230-21 Mcg Inhaler] Omeprazole 20 mg PO DAILY 12/10/16 01/12/17 History Umeclidinium [place] [Incruse 1 puff INHALATION RT-DAILY 12/10/16 01/12/17 History Ellipta] Albuterol Sulfate [Proair Hfa] 2 puff INHALATION RT-QID PRN 12/17/16 01/12/17 History Melatonin 3 mg PO HS 12/17/16 01/12/17 History Diazepam [Valium] 5 mg PO Q8H PRN 01/12/17 01/12/17 History Metoprolol Tartrate [Lopressor] 25 mg PO DAILY 01/12/17 01/12/17 History Roflumilast [Daliresp] 500 mcg PO DAILY 01/12/17 01/12/17 History oxyCODONE-APAP 10-325MG [Percocet 1 - 2 tab PO Q6H PRN 01/12/17 01/12/17 History 10-325 mg] predniSONE 20 mg PO DAILY 01/12/17 01/12/17 History predniSONE See Taper PO DAILY 01/12/17 01/12/17 History Allergies Allergy/AdvReac Type Severity Reaction Status Date / Time ibuprofen [From Motrin] Allergy Unknown Verified 01/12/17 15:30 Penicillins Allergy "PASSED Verified 01/12/17 15:30 OUT", SOB Physical Examination - Vital Signs Vital Signs: Vital Signs Temp Pulse Pulse Resp BP BP Pulse Ox 01/12/17 18:00 98.5 F 93 18 104/67 93 L 01/12/17 17:50 98.2 F 79 20 102/55 97 Intake and Output 01/12/17 01/12/17 01/12/17 06:59 14:59 22:59 Output Total 200 Balance -200 Output: Urine 200 Other: Weight 95.254 kg Patient Weight 01/13/17 06:59 Weight 95.254 kg - Constitutional General appearance: average body habitus, cooperative - EENT EENT: PERRL, mucous membranes moist - Respiratory Respiratory: lungs clear, normal breath sounds - Cardiovascular Cardiovascular: regular rate, normal S1, normal S2 Extremities: no peripheral edema bilaterally - Gastrointestinal Gastrointestinal: normoactive bowel sounds - Integumentary Integumentary: normal - Neurologic Cranial nerve examination: PERRL, EOMI, VFF, V1/V2/V3 grossly intact, face symmetric, tongue midline, intact gag reflex, intact corneal reflex, normal palatal elevation Speech examination: motor aphasia Sensorimotor examination: intact Motor examination - right side: 4/5: biceps, triceps, wrist flexion, wrist extension, unit support representative, hip flexors, knee extensors, dorsiflexion, toe extension (EHL) , plantarflexion Motor examination - left side: 4/5: biceps, triceps, wrist flexion, wrist extension, unit support representative, hip flexors, knee extensors, dorsiflexion, toe extension (EHL) , plantarflexion Detailed sensory examination: intact Reflex and gait examination: intact Reflexes: 1+: ankle, bicep, knee, tricep - Musculoskeletal Musculoskeletal: no pain - Psychiatric Psychiatric: mood/affect appropriate, cooperative Results - Laboratory Findings CBC and BMP: 01/12/17 15:11 01/12/17 15:11 Assessment and Plan (1) Acute right arterial ischemic stroke, MCA (middle cerebral artery) Status: Acute Code(s): I63.511 - CEREB INFRC D/T UNSP OCCLS OR STENOS OF RIGHT MID CEREB ART (2) Dysphasia Status: Acute Code(s): R47.02 - DYSPHASIA (3) Hypotension Status: Acute Code(s): I95.9 - HYPOTENSION, UNSPECIFIED (4) Acute exacerbation of COPD with asthma Status: Acute Code(s): J44.1 - CHRONIC OBSTRUCTIVE PULMONARY DISEASE W (ACUTE ) EXACERBATION Plan: This patient is a 56-year-old male who apparently yesterday evening developed slurring of his speech. He has superimposed COPD and asthma with severe worsening of his breathing condition over the last few days. Yesterday evening he went to bed and notices speech was very slurred. This morning the symptoms worsen. He was also having difficulty walking. He was brought into the emergency room at [facility] for further evaluation. He was seen in the ER by Dr. Vick who sent him for a computed tomography scan of the brain. CAT scan of the brain revealed possible early infarction in the right parietal lobe. Patient was admitted to hospital for a complete stroke evaluation. Patient's neurological exam reveals him to have significant dysarthric speech. He has no pronator drift. His clinical findings are suggesting acute right MCA stroke. We have recommended he undergo an MRI of the brain for further evaluation. He will have a complete stroke evaluation and assessment as well. He is currently on Xarelto for treatment of DVT. He is to continue on this medication at this time. His overall prognosis at this time remains very guarded. We will continue close neurological follow-up of this patient during this admission. Time with Patient: Greater than 30
[2017-01-12] MEDS: HYDROCORTISONE SUCCINATE 100 MG/2 ML VIAL IV SCH (21:23)
[2017-01-12] MEDS: MELATONIN 3 MG TABLET PO SCH (21:23)
[2017-01-12] MEDS: PRAVASTATIN SODIUM 20 MG TAB PO SCH (21:23)
[2017-01-12] MEDS: DIAZEPAM 5 MG TAB PO PRN (21:30)
[2017-01-12] MEDS: SYMBICORT 160-4.5 MCG INHALER INHALATION SCH (21:33)
[2017-01-12] MEDS: IPRATROPIUM-ALBUTEROL 3 ML NEB INHALATION SCH (21:34)
[2017-01-13] MEDS: ALBUTEROL NEBULIZED 2.5 MG/3 ML INHALATION PRN (02:07)
[2017-01-13] MEDS: SODIUM CHLORIDE 0.9% 1,000 ML IV SCH ×3 (02:57→19:03)
[2017-01-13 06:54] LABS: Basophils % (A) 0 %; CH 26.3; CHCM 30.1; Eosinophils % (A) 0 %; HCT 33.2 % (39.0-53.0); HDW 3.22; HGB 9.8 gm/dL (13.0-17.5); Hypochromasia Marked; Luc # (Auto) 0.08; Luc % (Auto) 2; Lymphocytes # (A) 1.2 k/uL (1.0-4.8); Lymphocytes % (A) 21 %; MCH 25.8 pg (25.0-35.0); MCHC 29.5 g/dL (31.0-37.0); MCV 87.7 fL (80.0-100.0); Mean Platelet Volume 6.6; Monocytes # (A) 0.3 k/uL (0-1.0); Monocytes % (A) 6 %; Neutrophils % (A) 72 %; RBC 3.78 m/uL (4.30-5.90); WBC 5.5 k/uL (3.8-10.6); WBC (Perox) 5.78
[2017-01-13 07:15] LABS: Anion Gap 6 mmol/L; Blood Urea Nitrogen 11 mg/dL (9-20); Calcium 8.4 mg/dL (8.4-10.2); Carbon Dioxide 26 mmol/L (22-30); Chloride 111 mmol/L (98-107); Cholesterol 109 mg/dL (<200); Glucose 121 mg/dL (74-99); HDL Cholesterol 39 mg/dL (40-60); Non-African American GFR(MDRD) >60 (>60 ml/min/1.73 sqM); Potassium 4.4 mmol/L (3.5-5.1); Sodium 143 mmol/L (137-145); Triglycerides 101 mg/dL (<150)
[2017-01-13] MEDS: IPRATROPIUM-ALBUTEROL 3 ML NEB INHALATION SCH ×4 (07:53→20:11)
[2017-01-13] MEDS: SYMBICORT 160-4.5 MCG INHALER INHALATION SCH ×2 (07:53→20:11)
[2017-01-13] MEDS ORDERED: TIOTROPIUM 18 MCG/PUFF INHALER INHALATION SCH (08:00)
[2017-01-13] MEDS: PALIPERIDONE 6 MG TAB.ER.24 PO SCH (09:00)
[2017-01-13] MEDS: RIVAROXABAN 10 MG TAB PO SCH (09:00)
[2017-01-13] MEDS ORDERED: NON-FORMULARY DRUG (Roflumilast [Daliresp] 500 MCG) PO SCH (09:00)
[2017-01-13] MEDS: HYDROCORTISONE SUCCINATE 100 MG/2 ML VIAL IV SCH (09:00)
--- NOTE | 2017-01-13 10:12 | US ---
EXAMINATION TYPE: US carotid duplex BILAT DATE OF EXAM: 01/13/2017 9:32 AM COMPARISON: NONE CLINICAL HISTORY: 56-year-old male, evaluate for stenosis. Altered mental status and slurred speech. TECHNIQUE: Carotid duplex ultrasound. Indirect Doppler criteria utilized. FINDINGS: Minimal apical scarring change at the bifurcations. Clean Energy Policy Analyst notes: Somewhat difficult exam, pt coughing during test EXAM MEASUREMENTS: RIGHT: Peak Systolic Velocity (PSV) cm/sec ----- Right CCA: 68.0 ----- Right ICA: 68.0 ----- Right ECA: 87.8 ICA/CCA ratio: 1.0 RIGHT: End Diastole cm/sec ----- Right CCA: 17.4 ----- Right ICA: 21.9 ----- Right ECA: 14.2 LEFT: Peak Systolic Velocity (PSV) cm/sec ----- Left CCA: 96.4 ----- Left ICA: 112.9 ----- Left ECA: 113.6 ICA/CCA ratio: 1.2 LEFT: End Diastole cm/sec ----- Left CCA: 26.3 ----- Left ICA: 41.8 ----- Left ECA: 22.3 VERTEBRALS (direction of flow): Right Vertebral: Antegrade Left Vertebral: Antegrade IMPRESSION: No hemodynamically significant stenosis appreciated in either internal carotid artery. Criteria for Assigning % of Stenosis / Diameter reduction (Estimation based on the indirect measurements of the internal carotid artery velocities (ICA PSV). 1. Normal (no stenosis)=ICA PSV < 125 cm/s: ratio < 2.0: ICA EDV<40 cm/s. 2. Less than 50% stenosis=ICA PSV < 125 cm/s: ratio < 2.0: ICA EDV<40 cm/s. 3. 50 to 69% stenosis=ICA PSV of 125 to 230 cm/s: ration 2.0 ? 4.0: ICA EDV 40-100 cm/s. 4. Greater than 70% stenosis to near occlusion= ICA PSV > 230 cm/s: ratio > 4.0: ICA EDV > 100 cm/s. 5. Near occlusion= ICA PSV velocities may be low or undetectable: variable ratio and ICA EDV. 6. Total occlusion=unable to detect flow.
[2017-01-13] MEDS: methylPREDNISolone SOD SUCCI 40 MG/ML 1 ML VIAL IV SCH ×3 (11:56→23:40)
[2017-01-13 14:29] LABS: Hemoglobin A1C 6.1 % (4.2-6.1)
--- NOTE | 2017-01-13 14:56 | P.CNPUL ---
History of Present Illness Consult date: 01/13/17 Reason for consult: COPD History of present illness: 56-year-old male patient is very well-known to me. The patient advanced COPD and he has been treated under my care for many years. The patient came in to the burst department yesterday with some slurring of speech. Apparently this was noted the night before. He has a girlfriend who noted that the patient was having some difficulties with his ability to walk and generalized weakness and some difficulties in his speech. Based on that the patient was brought into the emergency department. Initially the patient was found to be hypotensive with a systolic blood pressure of 64/41. She was given IV fluids and he was resuscitated quickly. CAT scan of the brain was done and it revealed a subtle hypodensity in the right parietal lobe suggesting ischemic stroke. The patient was subsequently admitted to the hospital. The patient has been on long-term and to coagulation with Xarelto for DVT and pulmonary embolism. He has a sinus rhythm for now. The patient did not have any syncope. No focal neurological deficits. No headache. No change in mental status. He was feeling weak and probably there is some increased weakness on the right according to the history. Nevertheless, the patient's symptoms improved and this morning he was not having any slurring in his speech nor there was any focal motor neurological deficits. The patient is having some increased difficulty breathing. This is typical of an acute COPD exacerbation as the patient had multiple bouts of COPD exacerbation the past. The patient has been maintained on a combination of Advair and Incruse. Fortunately has quit smoking cigarettes. His blood work has been essentially within normal limits. No major electrolyte disturbance. Troponin is negative. He was last hospitalized for COPD exacerbation on 12/17/2016. He has undergone a recent multilevel lumbar laminectomy and fusion at [facility] by Dr. Dillard. He was having difficulty with have been irritation for that reason he was briefly hospitalized and following that he was sent to rehab. Review of Systems Further review of system was done as mentioned above Past Medical History Past Medical History: Asthma, COPD, Deep Vein Thrombosis (DVT), GERD/Reflux, Hyperlipidemia, Hypertension, Musculoskeletal Disorder, Pneumonia, Pulmonary Embolus (PE) Additional Past Medical History / Comment(s): COPD, history of DVT and bilateral pulmonary embolism, history of a cavitating right upper lobe pneumonia related to gram-negative, the patient has recovered and the patient has no evidence of any malignancy, hyperlipidemia, hypertension, anxiety, schizophrenia, degenerative arthritis and chronic back pain, GE reflux, history of C. diff colitis. History of Any Multi-Drug Resistant Organisms: None Reported Date of last positivie culture/infection: None MDRO Source:: None Past Surgical History: Back Surgery, Hernia Repair, Orthopedic Surgery Additional Past Surgical History / Comment(s): Lumbar laminectomy and fusion last surgery was done few months back. He has had overall for surgeries, other surgeries include surgeries on his neck and shoulder and previous gastric surgery Past Anesthesia/Blood Transfusion Reactions: No Reported Reaction Additional Past Anesthesia/Blood Transfusion Reaction / Comment(s): couldn't urinate after a surgery, Past Psychological History: Anxiety, Schizophrenia Smoking Status: Former smoker Past Alcohol Use History: None Reported Additional Past Alcohol Use History / Comment(s): QUIT SMOKING JUL 2014, STARTED SMOKING AT AGE 14/ 1PPD Past Drug Use History: None Reported - Past Family History Mother History Unknown: Yes Family Medical History: Cancer, CVA/TIA Additional Family Medical History / Comment(s): breast cancer Medications and Allergies Home Medications Medication Instructions Recorded Confirmed Type Paliperidone [Invega] 6 mg PO DAILY 06/08/14 01/12/17 History traZODone HCL [traZODone] 150 mg PO HS 06/08/14 01/12/17 History Losartan [Cozaar] 50 mg PO DAILY 07/09/15 01/12/17 History rOPINIRole HCL [Requip] 1 mg PO HS 07/09/15 01/12/17 History Pravastatin Sodium [Pravachol] 20 mg PO HS 08/27/15 01/12/17 History Rivaroxaban [Xarelto] 20 mg PO DAILY 12/21/15 01/12/17 History Fluticasone/Salmeterol [Advair Hfa 2 puff INHALATION RT-BID 12/10/16 01/12/17 History 230-21 Mcg Inhaler] Omeprazole 20 mg PO DAILY 12/10/16 01/12/17 History Umeclidinium [place] [Incruse 1 puff INHALATION RT-DAILY 12/10/16 01/12/17 History Ellipta] Albuterol Sulfate [Proair Hfa] 2 puff INHALATION RT-QID PRN 12/17/16 01/12/17 History Melatonin 3 mg PO HS 12/17/16 01/12/17 History Diazepam [Valium] 5 mg PO Q8H PRN 01/12/17 01/12/17 History Metoprolol Tartrate [Lopressor] 25 mg PO DAILY 01/12/17 01/12/17 History Roflumilast [Daliresp] 500 mcg PO DAILY 01/12/17 01/12/17 History oxyCODONE-APAP 10-325MG [Percocet 1 - 2 tab PO Q6H PRN 01/12/17 01/12/17 History 10-325 mg] predniSONE 20 mg PO DAILY 01/12/17 01/12/17 History predniSONE See Taper PO DAILY 01/12/17 01/12/17 History Allergies Allergy/AdvReac Type Severity Reaction Status Date / Time ibuprofen [From Motrin] Allergy Unknown Verified 01/12/17 15:30 Penicillins Allergy "PASSED Verified 01/12/17 15:30 OUT", SOB Physical Exam Vitals: Vital Signs Temp Pulse Pulse Resp BP BP Pulse Ox 01/13/17 12:00 98 F 95 18 124/66 99 01/13/17 11:41 92 01/13/17 11:33 92 01/13/17 08:14 88 01/13/17 08:04 92 01/13/17 08:03 92 01/13/17 08:00 96.8 F L 95 18 119/68 97 01/13/17 07:53 92 01/13/17 04:00 94 18 119/76 98 01/13/17 02:17 90 01/13/17 02:07 101 H 01/13/17 00:00 99 20 108/76 96 01/12/17 21:50 108 H 01/12/17 21:35 104 H 01/12/17 20:00 98.9 F 100 18 119/73 94 L 01/12/17 18:00 98.5 F 93 18 104/67 93 L 01/12/17 17:50 98.2 F 79 20 102/55 97 Intake and Output 01/12/17 01/13/17 01/13/17 22:59 06:59 14:59 Intake Total 700 800 Output Total 200 250 Balance -200 700 550 Intake: IV 800 Sodium Chloride 0.9% 1, 800 000 ml @ 100 mls/hr IV . Q10H AMBAR Rx#:[id number] Intake, IV Titration 700 Amount Sodium Chloride 0.9% 1, 700 000 ml @ 100 mls/hr IV . Q10H AMBAR Rx#:[id number] Oral 0 Output: Urine 200 250 Other: # Voids 1 Weight 95.254 kg 94.5 kg Head exam was generally normal. There was no scleral icterus or corneal arcus. Mucous membranes were moist.Neck was supple and without jugular venous distension, thyromegaly, or carotid bruits. Carotids were easily palpable bilaterally. There was no adenopathy. Lung sounds are diminished bilaterally along with that there is diffuse expiratory wheezes heard throughout the lung serrano.Cardiac exam revealed the PMI to be normally situated and sized. The rhythm was regular and no extrasystoles were noted during several minutes of auscultation. The first and second heart sounds were normal and physiologic splitting of the second heart sound was noted. There were no murmurs, rubs, clicks, or gallops. AAbdominal exam revealed normal bowel sounds. The abdomen was soft, non-tender, and without masses, organomegaly, or appreciable enlargement of the abdominal aorta.Examination of the extremities revealed easily palpable radial, femoral and pedal pulses. There was no cyanosis, clubbing or edema. Neurologically he is oriented 3. No focal neurological deficits can be elicited. Results - Laboratory Findings CBC and BMP: 01/13/17 06:26 01/13/17 06:26 PT/INR, D-dimer PT 11.0 sec (9.0-12.0) 01/12/17 15:11 INR 1.1 (<1.1) 01/12/17 15:11 Abnormal lab findings: Abnormal Labs 01/13/17 01/13/17 06:26 06:26 RBC 3.78 L Hgb 9.8 L Hct 33.2 L MCHC 29.5 L Chloride 111 H Glucose 121 H HDL Cholesterol 39 L - Diagnostic Findings Chest x-ray: image reviewed Assessment and Plan Plan: Assessment 1 acute slurring his speech with CAT scan of the brain abnormalities to suggest an acute infarct. Rule out acute right parietal ischemic stroke. Also rule out reversible neurologic manifestations/deficits secondary to transient hypotension which ultimately recovered. 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 2 acute COPD exacerbation 3 chronic dyspnea secondary to above 4 transient hypotension, recovered 5 history of DVT and pulmonary embolism on long-term articulation with warfarin 6 hyperlipidemia 7 hypertension 8 GERD 9 remote history of C. diff colitis 10 chronic back pain with recent lumbar laminectomy and fusion 11 schizophrenia 12 degenerative arthritis 13 chronic anemia. 14 acute kidney injury with a creatinine of 1.29 at time of admission, improved with fluid resuscitation Plan Neurologist on the case and the patient will have an MRI of the brain to recognize any stroke evolution. Stroke workup including Doppler of the carotids and echocardiogram and neurology evaluation. Treatment of COPD exacerbation will be continued with bronchodilators and I'm going to add Solu- Medrol 40 mg every 6 hours. The patient quit smoking. His chest x-ray is not showing any acute abnormalities. Long-term and to coagulation with Xarelto will be continued for now regarding his previous history of DVT and pulmonary embolism.
[2017-01-13 16:53] LABS: Glucose,Whole Blood 148 mg/dL (75-99)
[2017-01-13] MEDS: INSULIN LISPRO (humaLOG) 300 UNIT/3 ML VIAL SQ SCH ×2 (17:40→21:33)
[2017-01-13] MEDS: oxyCODONE-APAP 10-325MG 1 EACH TAB PO PRN ×2 (17:40→23:39)
[2017-01-13 21:21] LABS: Glucose,Whole Blood 197 mg/dL (75-99)
[2017-01-13] MEDS: MELATONIN 3 MG TABLET PO SCH (21:32)
[2017-01-13] MEDS: PRAVASTATIN SODIUM 20 MG TAB PO SCH (21:32)
[2017-01-13] MEDS: traZODone HCL 100 MG TAB PO SCH (21:33)
--- NOTE | 2017-01-13 21:35 | P.PN ---
Subjective This patient is a 56-year-old male being evaluated for episode of slurred speech and possible evolving right parietal stroke. Patient was admitted yesterday after experiencing episode of slurred speech the night before as was noted by his girlfriend. He was brought into the emergency room yesterday and underwent a computed tomography scan of the brain. CAT scan of the brain reveals a area of possible stroke involving the right parietal lobe. Patient is scheduled to have MRI of the brain for further evaluation. Patient underwent carotid Doppler ultrasound today which came back negative for any significant carotid artery stenosis. Patient is to continue on Xarelto for treatment of DVT and pulmonary embolism. We will continue close neurological monitoring of this patient and his current stroke workup. Objective - Vital Signs Vital signs: Vital Signs Temp 96.9 F L 01/13/17 14:58 Pulse 107 H 01/13/17 14:58 Resp 20 01/13/17 15:00 BP 130/69 01/13/17 14:58 Pulse Ox 100 01/13/17 14:58 Intake & Output 01/13/17 01/13/17 01/14/17 06:59 18:59 06:59 Intake Total 700 800 Output Total 500 Balance 700 300 Weight 94.5 kg Intake: IV 800 Sodium Chloride 0.9% 1, 800 000 ml @ 100 mls/hr IV . Q10H AMBAR Rx#:[id number] Intake, IV Titration 700 Amount Sodium Chloride 0.9% 1, 700 000 ml @ 100 mls/hr IV . Q10H AMBAR Rx#:[id number] Oral 0 Output: Urine 500 Other: Voiding Method Urinal # Voids 1 - Exam Physical examination: PHYSICAL EXAMINATION: Patient is resting comfortably in bed. VITAL SIGNS: Blood pressure is [1:30/69]. Heart rate is [107]. Respiration is [ 20]. Temperature is [96.9]. HEENT: Head is atraumatic, neck is supple, there were no carotid bruits. CHEST: Lungs are clear to auscultation and percussion. CARDIAC: S1, S2 normal rate and rhythm. There is no murmur. ABDOMEN: Soft and nontender. Bowel sounds are present. EXTREMITIES: There is no pedal edema. Peripheral pulses are present. Neurological examination: Patient's neurological examination is unchanged from yesterday. - Labs CBC & Chem 7: 01/13/17 06:26 01/13/17 06:26 Labs: Abnormal Lab Results - Last 24 Hours (Table) 01/13/17 01/13/17 01/13/17 Range/Units 06:26 06:26 16:51 RBC 3.78 L (4.30-5.90) m/uL Hgb 9.8 L (13.0-17.5) gm/dL Hct 33.2 L (39.0-53.0) % MCHC 29.5 L (31.0-37.0) g/dL Chloride 111 H (98-107) mmol/L Glucose 121 H (74-99) mg/dL POC Glucose (mg/dL) 148 H (75-99) mg/dL HDL Cholesterol 39 L (40-60) mg/dL Assessment and Plan (1) Acute right arterial ischemic stroke, MCA (middle cerebral artery) Status: Acute Code(s): I63.511 - CEREB INFRC D/T UNSP OCCLS OR STENOS OF RIGHT MID CEREB ART (2) Dysphasia Status: Acute Code(s): R47.02 - DYSPHASIA (3) Hypotension Status: Acute Code(s): I95.9 - HYPOTENSION, UNSPECIFIED (4) Acute exacerbation of COPD with asthma Status: Acute Code(s): J44.1 - CHRONIC OBSTRUCTIVE PULMONARY DISEASE W (ACUTE ) EXACERBATION Plan: This patient is a 56-year-old male who apparently yesterday evening developed slurring of his speech. He has superimposed COPD and asthma with severe worsening of his breathing condition over the last few days. Yesterday evening he went to bed and notices speech was very slurred. This morning the symptoms worsen. He was also having difficulty walking. He was brought into the emergency room at [facility] for further evaluation. He was seen in the ER by Dr. Vick who sent him for a computed tomography scan of the brain. CAT scan of the brain revealed possible early infarction in the right parietal lobe. Patient was admitted to hospital for a complete stroke evaluation. Patient's neurological exam reveals him to have significant dysarthric speech. He has no pronator drift. His clinical findings are suggesting acute right MCA stroke. We have recommended he undergo an MRI of the brain for further evaluation. He will have a complete stroke evaluation and assessment as well. He is currently on Xarelto for treatment of DVT. He is to continue on this medication at this time. His overall prognosis at this time remains very guarded. Patient will undergo MRI of the brain tomorrow for further evaluation of right parietal stroke. Depending on the MRI results further recommendations will be given. His overall prognosis at this time remains guarded. We will continue close neurological follow-up of this patient during this admission.
[2017-01-14] MEDS: ALBUTEROL NEBULIZED 2.5 MG/3 ML INHALATION PRN (00:07)
[2017-01-14 05:54] LABS: Glucose,Whole Blood 255 mg/dL (75-99)
[2017-01-14] MEDS: oxyCODONE-APAP 10-325MG 1 EACH TAB PO PRN ×3 (06:32→19:00)
[2017-01-14] MEDS: methylPREDNISolone SOD SUCCI 40 MG/ML 1 ML VIAL IV SCH ×4 (06:33→23:20)
[2017-01-14] MEDS: INSULIN LISPRO (humaLOG) 300 UNIT/3 ML VIAL SQ SCH ×4 (06:34→22:37)
[2017-01-14] MEDS: PANTOPRAZOLE 40 MG TABLET PO SCH (06:35)
[2017-01-14 06:50] LABS: Basophils % (A) 0 %; CH 25.6; CHCM 29.4; Eosinophils % (A) 0 %; HDW 3.34; HGB 9.6 gm/dL (13.0-17.5); Hypochromasia Marked; Luc # (Auto) 0.08; Luc % (Auto) 1; Lymphocytes # (A) 0.8 k/uL (1.0-4.8); Lymphocytes % (A) 10 %; MCH 26.2 pg (25.0-35.0); MCHC 30.1 g/dL (31.0-37.0); MCV 87.1 fL (80.0-100.0); Mean Platelet Volume 6.8; Monocytes # (A) 0.4 k/uL (0-1.0); Monocytes % (A) 5 %; Neutrophils # (A) 6.3 k/uL (1.3-7.7); Neutrophils % (A) 84 %; RBC 3.67 m/uL (4.30-5.90); RDW 14.4 % (11.5-15.5); WBC 7.5 k/uL (3.8-10.6)
[2017-01-14 07:01] LABS: Anion Gap 8 mmol/L; Blood Urea Nitrogen 18 mg/dL (9-20); Calcium 8.3 mg/dL (8.4-10.2); Carbon Dioxide 21 mmol/L (22-30); Chloride 108 mmol/L (98-107); Glucose 222 mg/dL (74-99); Non-African American GFR(MDRD) >60 (>60 ml/min/1.73 sqM); Potassium 4.1 mmol/L (3.5-5.1); Sodium 137 mmol/L (137-145)
[2017-01-14] MEDS: SYMBICORT 160-4.5 MCG INHALER INHALATION SCH ×2 (07:14→19:21)
[2017-01-14] MEDS: IPRATROPIUM-ALBUTEROL 3 ML NEB INHALATION SCH ×4 (07:14→19:19)
[2017-01-14] MEDS: SODIUM CHLORIDE 0.9% 1,000 ML IV SCH ×2 (08:09→19:01)
[2017-01-14] MEDS: METOPROLOL TARTRATE 25 MG TAB PO SCH (08:10)
[2017-01-14] MEDS: LOSARTAN 50 MG TAB PO SCH (08:10)
[2017-01-14] MEDS: RIVAROXABAN 10 MG TAB PO SCH (08:10)
[2017-01-14] MEDS: PALIPERIDONE 6 MG TAB.ER.24 PO SCH (08:10)
--- NOTE | 2017-01-14 11:02 | ECHOF ---
Referral Reason:Thrombus MEASUREMENTS -------- HEIGHT: 157.5 cm WEIGHT: 75.7 kg BP: 114/55 RVIDd: 2.4 cm (< 3.3) IVSd: 1.0 cm (0.6 - 1.1) LVIDd: 4.9 cm (3.9 - 5.3) LVPWd: 1.1 cm (0.6 - 1.1) IVSs: 1.3 cm LVIDs: 3.7 cm LVPWs: 1.5 cm LAESV Index (A-L): 19.55 ml/m Ao Diam: 3.4 cm (2.0 - 3.7) AV Cusp: 2.0 cm (1.5 - 2.6) LA Diam: 3.2 cm (2.7 - 3.8) MV EXCURSION: 21.518 mm (> 18.000) MV EF SLOPE: 148 mm/s (70 - 150) EPSS: 0.3 cm MV E Henry: 1.05 m/s MV DecT: 253 ms MV A Henry: 0.99 m/s MV E/A Ratio: 1.05 FINDINGS -------- Sinus rhythm. This was a technically good study. LV size, wall thickness and systolic function are normal, with an EF greater than 55%. The right ventricle is normal in size. Normal LA size by volume 22+/-6 ml/m2. The right atrial size is normal. There is mild aortic valve sclerosis. There is no evidence of aortic regurgitation. Mild mitral annular calcification present. Mild mitral regurgitation is present. Mild tricuspid regurgitation present. There is no evidence of pulmonary hypertension. The right ventricular systolic pressure, as measured by Doppler, is {RVSP}. There is no pulmonic regurgitation present. The aortic root size is normal. There is no pericardial effusion. CONCLUSIONS -------- 1. LV size, wall thickness and systolic function are normal, with an EF greater than 55%. 2. Normal LA size by volume 22+/-6 ml/m2. 3. There is mild aortic valve sclerosis. 4. Mild mitral annular calcification present. 5. Mild mitral regurgitation is present. 6. Mild tricuspid regurgitation present. 7. There is no evidence of pulmonary hypertension. 8. The right ventricular systolic pressure, as measured by Doppler, is {RVSP}. SQUARING SHEAR OPERATOR: Cesilia Wilson RDCS
[2017-01-14 11:38] LABS: Glucose,Whole Blood 143 mg/dL (75-99)
--- NOTE | 2017-01-14 12:46 | P.PN ---
Subjective Principal diagnosis: Acute CVA, acute slurring of speech. 56-year-old male patient is very well-known to me. The patient advanced COPD and he has been treated under my care for many years. The patient came in to the burst department yesterday with some slurring of speech. Apparently this was noted the night before. He has a girlfriend who noted that the patient was having some difficulties with his ability to walk and generalized weakness and some difficulties in his speech. Based on that the patient was brought into the emergency department. Initially the patient was found to be hypotensive with a systolic blood pressure of 64/41. She was given IV fluids and he was resuscitated quickly. CAT scan of the brain was done and it revealed a subtle hypodensity in the right parietal lobe suggesting ischemic stroke. The patient was subsequently admitted to the hospital. The patient has been on long-term and to coagulation with Xarelto for DVT and pulmonary embolism. He has a sinus rhythm for now. The patient did not have any syncope. No focal neurological deficits. No headache. No change in mental status. He was feeling weak and probably there is some increased weakness on the right according to the history. Nevertheless, the patient's symptoms improved and this morning he was not having any slurring in his speech nor there was any focal motor neurological deficits. The patient is having some increased difficulty breathing. This is typical of an acute COPD exacerbation as the patient had multiple bouts of COPD exacerbation the past. The patient has been maintained on a combination of Advair and Incruse. Fortunately has quit smoking cigarettes. His blood work has been essentially within normal limits. No major electrolyte disturbance. Troponin is negative. He was last hospitalized for COPD exacerbation on 12/17/2016. He has undergone a recent multilevel lumbar laminectomy and fusion at [facility] by Dr. Dillard. He was having difficulty with have been irritation for that reason he was briefly hospitalized and following that he was sent to rehab. Patient was reevaluated today on 01/14/2017, doing well from the pulmonary perspective, MRI of the brain was done earlier today, results of which are pending. Patient remains on anticoagulation therapy, and overall the patient is doing well. Upon evaluation by neurology, he was found to have evolving right parietal stroke. Chest x-ray on admission showed no evidence of acute change. Objective - Vital Signs Vital signs: Vital Signs Temp 96.8 F L 01/14/17 12:00 Pulse 58 L 01/14/17 12:00 Resp 18 01/14/17 12:00 BP 104/59 01/14/17 12:00 Pulse Ox 91 L 01/14/17 12:00 Intake & Output 01/13/17 01/14/17 01/14/17 18:59 06:59 18:59 Intake Total 800 1500 120 Output Total 500 375 Balance 300 1125 120 Weight 75.8 kg Intake: IV 800 500 Sodium Chloride 0.9% 1, 800 500 000 ml @ 100 mls/hr IV . Q10H AMBAR Rx#:[id number] Oral 0 1000 120 Output: Urine 500 375 Other: Voiding Method Urinal Urinal # Voids 1 # Bowel Movements 2 - Exam Head exam was generally normal. There was no scleral icterus or corneal arcus. Mucous membranes were moist.Neck was supple and without jugular venous distension, thyromegaly, or carotid bruits. Carotids were easily palpable bilaterally. There was no adenopathy. Lung sounds are diminished bilaterally along with that there is diffuse expiratory wheezes heard throughout the lung serrano.Cardiac exam revealed the PMI to be normally situated and sized. The rhythm was regular and no extrasystoles were noted during several minutes of auscultation. The first and second heart sounds were normal and physiologic splitting of the second heart sound was noted. There were no murmurs, rubs, clicks, or gallops. AAbdominal exam revealed normal bowel sounds. The abdomen was soft, non-tender, and without masses, organomegaly, or appreciable enlargement of the abdominal aorta.Examination of the extremities revealed easily palpable radial, femoral and pedal pulses. There was no cyanosis, clubbing or edema. Neurologically he is oriented 3. No focal neurological deficits can be elicited. - Labs CBC & Chem 7: 01/14/17 06:24 01/14/17 06:24 Labs: Abnormal Lab Results - Last 24 Hours (Table) 01/13/17 01/13/17 01/14/17 Range/Units 16:51 21:19 05:53 RBC (4.30-5.90) m/uL Hgb (13.0-17.5) gm/dL Hct (39.0-53.0) % MCHC (31.0-37.0) g/dL Lymphocytes # (1.0-4.8) k/uL Chloride (98-107) mmol/L Carbon Dioxide (22-30) mmol/L Glucose (74-99) mg/dL POC Glucose (mg/dL) 148 H 197 H 255 H (75-99) mg/dL Calcium (8.4-10.2) mg/dL 01/14/17 01/14/17 01/14/17 Range/Units 06:24 06:24 11:36 RBC 3.67 L (4.30-5.90) m/uL Hgb 9.6 L (13.0-17.5) gm/dL Hct 32.0 L (39.0-53.0) % MCHC 30.1 L (31.0-37.0) g/dL Lymphocytes # 0.8 L (1.0-4.8) k/uL Chloride 108 H (98-107) mmol/L Carbon Dioxide 21 L (22-30) mmol/L Glucose 222 H (74-99) mg/dL POC Glucose (mg/dL) 143 H (75-99) mg/dL Calcium 8.3 L (8.4-10.2) mg/dL Assessment and Plan Plan: 1 acute slurring his speech with CAT scan of the brain abnormalities to suggest an acute infarct. Rule out acute right parietal ischemic stroke. Also rule out reversible neurologic manifestations/deficits secondary to transient hypotension which ultimately recovered. 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 2 acute COPD exacerbation 3 chronic dyspnea secondary to above 4 transient hypotension, recovered 5 history of DVT and pulmonary embolism on long-term articulation with warfarin 6 hyperlipidemia 7 hypertension 8 GERD 9 remote history of C. diff colitis 10 chronic back pain with recent lumbar laminectomy and fusion 11 schizophrenia 12 degenerative arthritis 13 chronic anemia. 14 acute kidney injury with a creatinine of 1.29 at time of admission, improved with fluid resuscitation, today's creatinine is 0.88 Recommendation: Continue present treatment plan, continue bronchodilators for COPD, continue Solu-Medrol, continue anticoagulation therapy, further input from neurology will be noted likely after the final report on his MRI. Patient did have previous history of DVT and pulmonary embolism, and he will remain on Xarelto long-term. Time with Patient: Less than 30
--- NOTE | 2017-01-14 16:10 | HP ---
DATE OF ADMISSION: 01/13/2017 CHIEF COMPLAINT: Slurring of speech. Mr. Glover is a 56-year-old male with a past medical history of asthma and COPD , ( ) GERD, hyperlipidemia, chronic low back pain coming to the hospital with a chief complaint of slurring of speech. The patient states that a couple of days back she had slurring of speech so EMS was called and evaluated and as slurring of speech was resolved, he was not brought into the hospital. The same happened last night and he was also feeling weak and has not been himself and so came in to the hospital for further evaluation. Also complains of increased difficulty in breathing. Patient had recent surgery of his lower back done earlier last month. Patient is on Xarelto for history of deep venous thrombosis and PE in the past. Patient had a CT of the head showing subacute versus acute stroke, but there is no evidence of hemorrhage. The patient's speech is back to normal currently. The patient has been started on steroids for his COPD exacerbation by Dr. Ralph. Currently, the patient states he has chronic low back pain issues and once his pain medications except for that he does not have any active complaints. He states his speech is back to normal but he is still feels weak in his lower extremities. Denies having any swelling of his lower extremities. No fever, no chest pain. No cough. No difficulty in breathing. He states he is on home oxygen. He states that he has cough with some productive sputum and difficulty in breathing for the past one week on and off. Denies having any abdominal pain, nausea, vomiting, or diarrhea. Denies having any rashes. Past medical history is significant for: Asthma, chronic obstructive pulmonary disease, DVT, GERD, hypertension, hyperlipidemia, pneumonia and PE. PAST SURGICAL HISTORY: Low back surgery. As per the patient, he states it was last month, earlier last month. PSYCHIATRIC HISTORY: Anxiety and schizophrenia. SOCIAL HISTORY: Current every day smoker more than 40 pack-years of smoking, occasional alcohol. Family history is positive for breast cancer in his mother. Stroke in his mother. ALLERGIES: IBUPROFEN AND PENICILLIN. Patient home medications: 1. Invega 6 mg p.o. daily. 2. Trazodone 50 mg p.o. q.h.s. 3. Losartan 50 mg p.o. daily. 4. Ropinirole 1 mg p.o. q.h.s. 5. Pravastatin 20 mg p.o. q.h.s. 6. Xarelto 40 mg p.o. daily. 7. Ellipta Breo 1 puff daily. 8. Omeprazole 20 mg p.o. daily. 9. Advair 2 puffs b.i.d. 10. Melatonin 3 mg p.o. q.h.s. 11. Albuterol p.r.n. 12. ( ) and ( ) p.o. daily. 13. Metoprolol 25 milligrams p.o. daily. 14. Prednisone 20 mg p.o. daily. 15. Valium 5 mg p.o. q.8 hours p.r.n. for muscle spasms. 16. Oxycodone 10/325. 17. Percocet 1 tablet p.o. q.6h. p.r.n. for pain. REVIEW OF SYSTEMS: All 13 review of systems are done and are negative except for ones mentioned in the HPI. The patient's vitals: Temperature 96.9, heart rate between 90 to 100, respiratory 20, blood pressure 120/69, saturating at 99% on 2 liters of nasal cannula. GENERAL EXAMINATION: Patient appears to be in no acute distress. HEAD: Atraumatic, normocephalic. EYES: Look a little bit puffy. NECK: No JVD. No thyromegaly. CARDIOVASCULAR: S1, S2 heard. RESPIRATORY: The patient has prolonged expiration and coarse breath sounds bilaterally. GI: Abdomen is soft, nontender, no organomegaly. Bowel sounds are positive. EXTREMITIES: No edema, no cyanosis, no clubbing. 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 No focal neurological deficits. MUSCULOSKELETAL: No joint swelling or deformity. PSYCHIATRIC: Appropriate mood and affect. Patient's labs: White count of 5.3, hemoglobin 9.8, platelets 350, sodium 142, potassium 4.4, chloride 111, bicarb 26, BUN 9, creatinine 0.81, triglycerides 101, cholesterol is 109, LDL is 50, HDL 39, ( ) is negative Patient also had a carotid artery Doppler, which was showing no significant stenosis in either internal carotid arteries and chest x-ray done showing possible chronic bronchitis and CT of the brain showing possible septal loss of dow white matter in the right parietal lobe which could represent early acute ischemic change. ASSESSMENT AND PLAN: 1. Slurring of speech secondary to acute right middle cerebral artery ischemia. 2. Acute exacerbation of chronic obstructive pulmonary disease. 3. Transient hypertension. 4. History of pulmonary embolism and deep venous thrombosis on long-term anticoagulation. 5. Hypertension. 6. Hyperlipidemia. 7. Chronic low back pain and with recent laminectomy and fusion. 8. Schizophrenia. 9. Degenerative joint disease. 10. Chronic anemia. 11. Acute kidney injury most likely secondary to hypotension. Creatinine is improving. PLAN: The plan is to continue the patient on anticoagulation with Xarelto and statin. The patient has been started on IV Solu-Medrol and breathing treatments should be continued. Resume his home medications. Continue with the rest of his medication regimen and further recommendations to follow depending on the progress of the patient.
[2017-01-14 16:56] LABS: Glucose,Whole Blood 147 mg/dL (75-99)
--- NOTE | 2017-01-14 17:41 | MR ---
EXAMINATION TYPE: MR brain wo con DATE OF EXAM: 01/14/2017 5:24 PM COMPARISON: NONE HISTORY: Right parietal stroke per order. Admitted for confusion and neural deficits 2 days earlier. TECHNIQUE: Multiplanar, multisequence imaging of the brain and brainstem is performed without IV cont rast. FINDINGS: Diffusion weighted images demonstrate no evidence of a recent infarct or other diffusion abnormality. There is no worrisome extra-axial fluid collection. There is ventricular and sulcal prominence consis tent with mild age-related cerebral atrophy. There are few scattered foci of T2 hyperintensity seen t hroughout the white matter bilaterally. Approximately 5-8 small lesions all measuring 4 mm or smaller in size are noted. Midline structures demonstrate normal morphology. The craniocervical junction appears within normal limits. Normal vascular flow voids are present. Mild mucosal thickening involving ethmoid sinuses maegan aterally is present. The remainder of the paranasal sinuses are clear. Both lenses are thinned. IMPRESSION: 1. No evidence of a recent infarct. 2. Mild diffuse cerebral atrophy with mild to minimal chronic small vessel ischemic change.
[2017-01-14] MEDS: DIAZEPAM 5 MG TAB PO PRN (19:00)
[2017-01-14 20:34] LABS: Glucose,Whole Blood 169 mg/dL (75-99)
[2017-01-14] MEDS ORDERED: TEMAZEPAM 15 MG CAP PO PRN (21:00)
[2017-01-14] MEDS: MELATONIN 3 MG TABLET PO SCH (22:30)
[2017-01-14] MEDS: traZODone HCL 100 MG TAB PO SCH (22:30)
[2017-01-14] MEDS: PRAVASTATIN SODIUM 20 MG TAB PO SCH (22:30)
--- NOTE | 2017-01-14 22:37 | PN ---
DATE OF SERVICE: 01/14/2017 INTERVAL HISTORY: Mr. Eid is a 56-year-old man with a past medical history of asthma, COPD, GERD, hypertension, chronic low back pain. Admitted to the hospital with a chief complaint of slurring of speech. Patient had a CT scan of the brain which showing loss of dow white matter in the right parietal lobe. He is having stroke work-up done. The patient denies having slurring of speech but has some weakness in his bilateral lower extremities. The patient recently had back surgery done last month. Today he is lying comfortably in the bed. He has some difficulty in breathing. REVIEW OF SYSTEMS: CONSTITUTIONAL: Denies having any fevers, chills, or rigors. RESPIRATORY: Positive for difficulty in breathing. No cough. CARDIOVASCULAR: No chest pain or palpitations. GI: No abdominal pain, nausea, vomiting, or diarrhea. DISH TECHNICIAN: No slurring of speech. No loss of consciousness. Complains of bilateral lower extremity weakness. Patient's medications have been reviewed. On examination, patient's vital signs temperature 96.8, heart rate 58, respiratory rate 18, blood pressure 104/59, saturating at 91% on 2 L nasal cannula. GENERAL: Appears to be in no acute distress. HEAD: Atraumatic, normocephalic. EYES: Pupils are round and reactive to light. They look a little bit puffy. NECK: No JVD. No thyromegaly. CARDIOVASCULAR: S1, S2 heard. RESPIRATORY: Bilateral breath sounds are positive. Positive for wheezing bilaterally, mostly on the left side compared to the right side. GI: Abdomen is soft, nontender, no organomegaly. Bowel sounds are positive. EXTREMITIES: No cyanosis. No edema. No clubbing. DISH TECHNICIAN: Patient's strength is 4 out of 5 in all 4 extremities. No focal neurological deficits. SKIN: No rash. MUSCULOSKELETAL: No joint swelling or deformity. PSYCHIATRY: Appropriate mood and affect. LABS: White count of 7.5, hemoglobin 9.6, platelets of 345. Sodium 137, potassium 4.1, chloride 108, bicarb 21, BUN 18, creatinine 0.88. ASSESSMENT AND PLAN: 1. Acute right middle cerebral artery ischemia with slurring of speech. 2. Acute exacerbation of chronic obstructive pulmonary disease. 3. Hypertension. 4. History of pulmonary embolism and deep venous thrombosis on long-term anticoagulation with Xarelto. 5. Hypertension. 6. Hyperlipidemia. 7. Chronic low back pain with recent laminectomy and fusion. 8. Schizophrenia. 9. Degenerative joint disease. 10. Chronic anemia. 11. Acute kidney injury, most likely secondary to hypotension. PLAN: The plan is to continue the patient on anticoagulation with Xarelto and continue with statin. The patient is having stroke work-up progress and is scheduled to get an MRI this evening. Continue with Solu-Medrol for his chronic obstructive pulmonary disease exacerbation. Continue with the rest of his home medications. Further recommendations to follow depending on the progress of the patient.
[2017-01-14 23:00] LABS: Glucose,Whole Blood 173 mg/dL (75-99)
[2017-01-15] MEDS: oxyCODONE-APAP 10-325MG 1 EACH TAB PO PRN ×5 (00:10→22:49)
[2017-01-15] MEDS: SODIUM CHLORIDE 0.9% 1,000 ML IV SCH ×3 (03:53→23:40)
[2017-01-15] MEDS: ALBUTEROL NEBULIZED 2.5 MG/3 ML INHALATION PRN ×2 (04:57→22:27)
[2017-01-15] MEDS: methylPREDNISolone SOD SUCCI 40 MG/ML 1 ML VIAL IV SCH ×4 (05:12→23:39)
[2017-01-15 05:49] LABS: Glucose,Whole Blood 185 mg/dL (75-99)
[2017-01-15] MEDS: PANTOPRAZOLE 40 MG TABLET PO SCH (06:15)
[2017-01-15] MEDS: INSULIN LISPRO (humaLOG) 300 UNIT/3 ML VIAL SQ SCH ×4 (06:15→21:04)
[2017-01-15 07:37] LABS: Glucose,Whole Blood 163 mg/dL (75-99)
[2017-01-15] MEDS: PALIPERIDONE 6 MG TAB.ER.24 PO SCH (08:37)
[2017-01-15] MEDS: LOSARTAN 50 MG TAB PO SCH (08:37)
[2017-01-15] MEDS: RIVAROXABAN 10 MG TAB PO SCH (08:37)
[2017-01-15] MEDS: METOPROLOL TARTRATE 25 MG TAB PO SCH (08:37)
[2017-01-15] MEDS: IPRATROPIUM-ALBUTEROL 3 ML NEB INHALATION SCH ×4 (09:00→20:40)
[2017-01-15] MEDS: SYMBICORT 160-4.5 MCG INHALER INHALATION SCH ×2 (09:01→20:40)
--- NOTE | 2017-01-15 11:16 | P.PN ---
Subjective Acute CVA, acute slurring of speech. 56-year-old male patient is very well-known to Dr. Ralph. The patient advanced COPD and he has been treated under his care for many years. The patient came in to the emergency department yesterday with some slurring of speech. Apparently this was noted the night before. He has a girlfriend who noted that the patient was having some difficulties with his ability to walk and generalized weakness and some difficulties in his speech. Based on that the patient was brought into the emergency department. Initially the patient was found to be hypotensive with a systolic blood pressure of 64/41. He was given IV fluids and he was resuscitated quickly. CAT scan of the brain was done and it revealed a subtle hypodensity in the right parietal lobe suggesting ischemic stroke. The patient was subsequently admitted to the hospital. The patient has been on long-term and to coagulation with Xarelto for DVT and pulmonary embolism. He has a sinus rhythm for now. The patient did not have any syncope. No focal neurological deficits. No headache. No change in mental status. He was feeling weak and probably there is some increased weakness on the right according to the history. Nevertheless, the patient's symptoms improved and this morning he was not having any slurring in his speech nor there was any focal motor neurological deficits. The patient is having some increased difficulty breathing. This is typical of an acute COPD exacerbation as the patient had multiple bouts of COPD exacerbation the past. The patient has been maintained on a combination of Advair and Incruse. Fortunately has quit smoking cigarettes. His blood work has been essentially within normal limits. No major electrolyte disturbance. Troponin is negative. He was last hospitalized for COPD exacerbation on 12/17/2016. He has undergone a recent multilevel lumbar laminectomy and fusion at [facility] by Dr. Dillard. He was having difficulty with have been urination for that reason he was briefly hospitalized and following that he was sent to rehab. Patient was reevaluated today on 01/14/2017, doing well from the pulmonary perspective, MRI of the brain was done earlier today, results of which are pending. Patient remains on anticoagulation therapy, and overall the patient is doing well. Upon evaluation by neurology, he was found to have evolving right parietal stroke. Chest x-ray on admission showed no evidence of acute change. The patient was seen again today 01/15/2017 in follow-up on the regular medical floor. He is awake and alert in no acute distress. He denies any shortness of breath, cough or congestion. An MRI of the brain did not reveal any evidence of a recent infarct. The patient remains alert and oriented 3. No focal neurological deficits. His only complaint at this time is that of ongoing lower back pain. He feels some of his dizziness and being off balance is related to Percocet and he had a similar reaction before. His preference is [place] for pain control. Objective - Vital Signs Vital signs: Vital Signs Temp 97 F L 01/15/17 07:00 Pulse 84 01/15/17 09:11 Resp 18 01/15/17 07:00 BP 158/93 01/15/17 07:00 Pulse Ox 95 01/15/17 07:00 Intake & Output 01/14/17 01/15/17 01/15/17 18:59 06:59 18:59 Intake Total 120 518 Output Total 1 651 Balance 119 -133 Weight 75.2 kg Intake: Intake, IV Titration 400 Amount Sodium Chloride 0.9% 1, 400 000 ml @ 100 mls/hr IV . Q10H [facility] Rx#:[id number] Oral 120 118 Output: Urine 650 Stool 1 1 Other: Voiding Method Urinal Urinal # Voids 1 - Exam GENERAL EXAM: Alert, active, comfortable in no apparent distress. HEAD: Normocephalic. EYES: Normal reaction of pupils, equal size. NOSE: Clear with pink turbinates. THROAT: No erythema or exudates. NECK: No masses, no JVD. CHEST: No chest wall deformity. LUNGS: Equal air entry with no crackles, wheeze, rhonchi or dullness. Diminished. CVS: S1 and S2 normal with no audible murmurs, regular rhythm. ABDOMEN: No hepatosplenomegaly, normal bowel sounds, no guarding or rigidity. SPINE: No scoliosis or deformity SKIN: No rashes CENTRAL NERVOUS SYSTEM: No focal deficits, tone is normal in all 4 extremities. Extremities: There is trace peripheral edema. No clubbing, no cyanosis. Peripheral pulses are intact. - Labs CBC & Chem 7: 01/14/17 06:24 01/14/17 06:24 Labs: Abnormal Lab Results - Last 24 Hours (Table) 01/14/17 01/14/17 01/14/17 Range/Units 11:36 16:46 20:32 POC Glucose (mg/dL) 143 H 147 H 169 H (75-99) mg/dL 01/14/17 01/15/17 01/15/17 Range/Units 22:36 05:47 07:35 POC Glucose (mg/dL) 173 H 185 H 163 H (75-99) mg/dL Assessment and Plan Plan: Impression: 1 acute slurring of speech with CAT scan of the brain abnormalities to suggest an acute infarct. Rule out acute right parietal ischemic stroke. Also rule out reversible neurologic manifestations/deficits secondary to transient hypotension which ultimately recovered. 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 MRI of the brain does not reveal any acute infarct. Possible excessive narcotic use. 2 acute COPD exacerbation 3 chronic dyspnea secondary to above 4 transient hypotension, recovered 5 history of DVT and pulmonary embolism on long-term articulation with Xarelto. 6 hyperlipidemia 7 hypertension 8 GERD 9 remote history of C. diff colitis 10 chronic back pain with recent lumbar laminectomy and fusion 11 schizophrenia 12 degenerative arthritis 13 chronic anemia. 14 acute kidney injury with a creatinine of 1.29 at time of admission, improved with fluid resuscitation, follow-up creatinine is 0.88 area Plan: The patient was seen and evaluated by Dr. Herr. He continues to improve neurologically. He denies any dizziness or lightheadedness. His speech is clear. His COPD exacerbation has improved as well. We will increase his activity as tolerated. Physical therapy has been initiated. Discharge planning is in place. We'll continue to follow.
[2017-01-15 11:50] LABS: Glucose,Whole Blood 221 mg/dL (75-99)
[2017-01-15 17:35] LABS: Glucose,Whole Blood 165 mg/dL (75-99)
--- NOTE | 2017-01-15 17:40 | P.PN ---
Subjective Patient is admitted to the hospital with the some concern for acute CVA due to slurring her words. Patient underwent an extensive workup including MRI neuro is no acute infarct that was appreciated. Patient improved with clinical observation. There is some concern over patient taking excessive pain medications. Toxic encephalopathy is also in the differential diagnosis. Patient was smoking prior to admission and has a history of. Is also noted to have an exacerbation of COPD on clinical evaluation. No infiltrate is appreciated on the chest x-ray. At the time of my evaluation patient appears in good spirits denies having any acute abnormalities at this time Objective - Vital Signs Vital signs: Vital Signs Temp 97 F L 01/15/17 15:00 Pulse 84 01/15/17 16:47 Resp 16 01/15/17 15:00 BP 164/82 01/15/17 15:00 Pulse Ox 92 L 01/15/17 15:00 Intake & Output 01/14/17 01/15/17 01/15/17 18:59 06:59 18:59 Intake Total 120 518 Output Total 1 651 2 Balance 119 -133 -2 Weight 75.2 kg Intake: Intake, IV Titration 400 Amount Sodium Chloride 0.9% 1, 400 000 ml @ 100 mls/hr IV . Q10H [facility] Rx#:[id number] Oral 120 118 Output: Urine 650 Stool 1 1 2 Other: Voiding Method Urinal Urinal # Voids 1 4 - Exam Physical exam Gen. appearance oriented 3 in no distress Neck is supple no JVD Lungs diffuse wheezing however no rhonchi or crackles appreciated. Heart S1-S2 heard regular rate and rhythm no murmurs appreciated Abdomen is soft nontender no organomegaly bowel sounds are intact Neurologically cranial nerves II-12 grossly intact no focal motor or sensory deficits noted no dysarthria or aphasia appreciated is able to repeat 3 words after 10 minutes most dysdiadochokinesia noted. Skin no abnormalities appreciated - Labs CBC & Chem 7: 01/14/17 06:24 01/14/17 06:24 Labs: Abnormal Lab Results - Last 24 Hours (Table) 01/14/17 01/14/17 01/15/17 Range/Units 20:32 22:36 05:47 POC Glucose (mg/dL) 169 H 173 H 185 H (75-99) mg/dL 01/15/17 01/15/17 01/15/17 Range/Units 07:35 11:48 17:32 POC Glucose (mg/dL) 163 H 221 H 165 H (75-99) mg/dL Assessment and Plan Plan: acute dysarthria suspected CVA however this could also be a toxic encephalopathy from use of pain medications Acute hypoxic respiratory failure from acute exacerbation of COPD. chronic dyspnea secondary to above history of DVT and pulmonary embolism on long-term articulation with Xarelto. hyperlipidemia hypertension GERD chronic back pain with recent lumbar laminectomy and fusion schizophrenia degenerative arthritis chronic anemia. acute kidney injury, that is improved Plan Continue steroids. Continue breathing treatments. MRI was not consistent with an acute stroke. Patient was made to ambulate no abnormalities were noted. Patient's speech is appropriate. With such a rapid improvement in his speech toxic encephalopathy appears to more appropriate and the reason for admission. However CVA is ruled out patient's risk factors were assessed and patient is placed appropriately on aspirin and statin. Patient will likely be discharged to a subacute rehab thereafter. Patient was smoking prior to admission and currently in with an acute exacerbation.
--- NOTE | 2017-01-15 20:52 | P.PN ---
Subjective This patient is a 56-year-old male being evaluated for episode of slurred speech and possible evolving right parietal stroke. Patient was admitted yesterday after experiencing episode of slurred speech the night before as was noted by his girlfriend. He was brought into the emergency room yesterday and underwent a computed tomography scan of the brain. CAT scan of the brain reveals a area of possible stroke involving the right parietal lobe. Patient is scheduled to have MRI of the brain for further evaluation. Patient underwent carotid Doppler ultrasound today which came back negative for any significant carotid artery stenosis. Patient is to continue on Xarelto for treatment of DVT and pulmonary embolism. Patient did complete MRI of the brain which came back negative for any evidence of acute stroke. This patient likely has history of probable drug-induced encephalopathy producing slurred speech. As noted MRI of the brain came back negative for acute stroke. Results of the MRI were discussed today with the patient. He is requesting further pain management for his chronic pain control. We will continue close neurological monitoring of this patient and his current stroke workup. Objective - Vital Signs Vital signs: Vital Signs Temp 97 F L 01/15/17 15:00 Pulse 84 01/15/17 16:47 Resp 16 01/15/17 15:00 BP 164/82 01/15/17 15:00 Pulse Ox 92 L 01/15/17 15:00 Intake & Output 01/14/17 01/15/17 01/15/17 18:59 06:59 18:59 Intake Total 120 518 Output Total 1 651 2 Balance 119 -133 -2 Weight 75.2 kg Intake: Intake, IV Titration 400 Amount Sodium Chloride 0.9% 1, 400 000 ml @ 100 mls/hr IV . Q10H [facility] Rx#:[id number] Oral 120 118 Output: Urine 650 Stool 1 1 2 Other: Voiding Method Urinal Urinal # Voids 1 4 - Exam Physical examination: PHYSICAL EXAMINATION: Patient is resting comfortably in bed. VITAL SIGNS: Blood pressure is [164/82]. Heart rate is [83]. Respiration is [16] . Temperature is [97.0]. HEENT: Head is atraumatic, neck is supple, there were no carotid bruits. CHEST: Lungs are clear to auscultation and percussion. CARDIAC: S1, S2 normal rate and rhythm. There is no murmur. ABDOMEN: Soft and nontender. Bowel sounds are present. EXTREMITIES: There is no pedal edema. Peripheral pulses are present. Neurological examination: Patient's neurological examination is unchanged from yesterday. - Labs CBC & Chem 7: 01/14/17 06:24 01/14/17 06:24 Labs: Abnormal Lab Results - Last 24 Hours (Table) 01/14/17 01/14/17 01/15/17 Range/Units 20:32 22:36 05:47 POC Glucose (mg/dL) 169 H 173 H 185 H (75-99) mg/dL 01/15/17 01/15/17 01/15/17 Range/Units 07:35 11:48 17:32 POC Glucose (mg/dL) 163 H 221 H 165 H (75-99) mg/dL Assessment and Plan (1) Acute right arterial ischemic stroke, MCA (middle cerebral artery) Status: Acute Code(s): I63.511 - CEREB INFRC D/T UNSP OCCLS OR STENOS OF RIGHT MID CEREB ART (2) Dysphasia Status: Acute Code(s): R47.02 - DYSPHASIA (3) Hypotension Status: Acute Code(s): I95.9 - HYPOTENSION, UNSPECIFIED (4) Acute exacerbation of COPD with asthma Status: Acute Code(s): J44.1 - CHRONIC OBSTRUCTIVE PULMONARY DISEASE W (ACUTE ) EXACERBATION Plan: This patient is a 56-year-old male who apparently yesterday evening developed slurring of his speech. He has superimposed COPD and asthma with severe worsening of his breathing condition over the last few days. Yesterday evening he went to bed and notices speech was very slurred. This morning the symptoms worsen. He was also having difficulty walking. He was brought into the emergency room at [facility] for further evaluation. He was seen in the ER by Dr. Vick who sent him for a computed tomography scan of the brain. CAT scan of the brain revealed possible early infarction in the right parietal lobe. Patient was admitted to hospital for a complete stroke evaluation. Patient's neurological exam reveals him to have significant dysarthric speech. He has no pronator drift. His clinical findings are suggesting acute right MCA stroke. We have recommended he undergo an MRI of the brain for further evaluation. He will have a complete stroke evaluation and assessment as well. He is currently on Xarelto for treatment of DVT. He is to continue on this medication at this time. His overall prognosis at this time remains very guarded. Patient will undergo MRI of the brain today for further evaluation of right parietal stroke. MRI was completed and came back negative for any evidence of acute stroke. His speech is improved since admission. This patient likely had a acute toxic encephalopathy secondary to drug overdose. He is requesting further management of his underlying pain management condition. His speech is shown improvement since initial evaluation. His overall prognosis at this time remains guarded. We will continue close neurological follow-up of this patient during this admission.
[2017-01-15] MEDS: PRAVASTATIN SODIUM 20 MG TAB PO SCH (20:54)
[2017-01-15] MEDS: traZODone HCL 100 MG TAB PO SCH (20:54)
[2017-01-15 21:39] LABS: Glucose,Whole Blood 221 mg/dL (75-99)
[2017-01-15] MEDS: MELATONIN 3 MG TABLET PO SCH (22:49)
[2017-01-16] MEDS: oxyCODONE-APAP 10-325MG 1 EACH TAB PO PRN ×3 (04:46→17:07)
[2017-01-16] MEDS: methylPREDNISolone SOD SUCCI 40 MG/ML 1 ML VIAL IV SCH ×2 (04:46→12:43)
[2017-01-16 07:33] LABS: Glucose,Whole Blood 176 mg/dL (75-99)
[2017-01-16] MEDS: SYMBICORT 160-4.5 MCG INHALER INHALATION SCH (07:43)
[2017-01-16] MEDS: IPRATROPIUM-ALBUTEROL 3 ML NEB INHALATION SCH ×2 (07:43→11:35)
[2017-01-16 07:51] VITALS: BP 135/78; RESP 18; TEMP 96.3
[2017-01-16] MEDS: SODIUM CHLORIDE 0.9% 1,000 ML IV SCH (08:36)
[2017-01-16] MEDS: PANTOPRAZOLE 40 MG TABLET PO SCH (08:37)
[2017-01-16] MEDS: RIVAROXABAN 10 MG TAB PO SCH (08:38)
[2017-01-16] MEDS: LOSARTAN 50 MG TAB PO SCH (08:39)
[2017-01-16] MEDS: METOPROLOL TARTRATE 25 MG TAB PO SCH (08:39)
[2017-01-16] MEDS: INSULIN LISPRO (humaLOG) 300 UNIT/3 ML VIAL SQ SCH ×2 (08:40→12:45)
[2017-01-16] MEDS: PALIPERIDONE 6 MG TAB.ER.24 PO SCH (08:40)
[2017-01-16 09:53] LABS: Basophils # (A) 0.1 k/uL (0-0.2); Basophils % (A) 1 %; CH 25.6; CHCM 30.1; Eosinophils % (A) 0 %; HCT 31.4 % (39.0-53.0); HDW 3.46; HGB 9.7 gm/dL (13.0-17.5); Hypochromasia Marked; Immature Gran Flag Slight; Luc # (Auto) 0.16; Luc % (Auto) 2; Lymphocytes # (A) 0.6 k/uL (1.0-4.8); Lymphocytes % (A) 6 %; MCH 26.3 pg (25.0-35.0); MCHC 30.9 g/dL (31.0-37.0); MCV 85.1 fL (80.0-100.0); Mean Platelet Volume 6.4; Monocytes # (A) 0.6 k/uL (0-1.0); Monocytes % (A) 6 %; Neutrophils # (A) 8.8 k/uL (1.3-7.7); Neutrophils % (A) 86 %; Poikilocytosis Slight; RBC 3.69 m/uL (4.30-5.90); RDW 14.3 % (11.5-15.5); WBC 10.2 k/uL (3.8-10.6); WBC (Perox) 10.64
[2017-01-16 10:06] LABS: Manual Review Performed
[2017-01-16 10:08] LABS: ALT 68 U/L (21-72); AST 51 U/L (17-59); Alkaline Phosphatase 64 U/L (38-126); Anion Gap 8 mmol/L; Blood Urea Nitrogen 23 mg/dL (9-20); Calcium 8.9 mg/dL (8.4-10.2); Carbon Dioxide 28 mmol/L (22-30); Chloride 103 mmol/L (98-107); Glucose 191 mg/dL (74-99); Non-African American GFR(MDRD) >60 (>60 ml/min/1.73 sqM); Potassium 3.9 mmol/L (3.5-5.1); Sodium 139 mmol/L (137-145); Total Bilirubin 0.2 mg/dL (0.2-1.3); Total Protein 5.6 g/dL (6.3-8.2)
--- NOTE | 2017-01-16 10:49 | EEG ---
DATE OF SERVICE: 01/14/2017 INDICATIONS FOR EXAMINATION: This patient is a 56-year-old male being evaluated for TIA and stroke-like symptoms. Patient presented with slurred speech and weakness. AGE: 56Y EEG FINDINGS: A routine 21-channel, awake digital EEG recording was accomplished utilizing the 10 - 20 international system with bipolar and referential montages. The background activity in the most alert resting state consists of a low to medium amplitude, fairly well-developed and well-sustained 7 to 8 Hz activity over the posterior head regions. This posterior rhythm attenuates to eye opening. There is a small amount of low amplitude 18 to 20 Hz beta activity seen maximally over the anterior head regions. Muscle and movement artifact was observed on a few occasions during the tracing. Hyperventilation was not performed. Photic stimulation at flash frequencies of 2 to 30 Hz produced a good symmetrical occipital driving response. No epileptiform discharges were seen. IMPRESSION: This EEG is within normal limits for the patient's age. The EEG failed to reveal any focal, lateralized or epileptiform abnormalities. Clinical correlation is recommended.
[2017-01-16 11:37] VITALS: PULSE 96
[2017-01-16 12:23] LABS: Glucose,Whole Blood 150 mg/dL (75-99)
--- NOTE | 2017-01-16 16:32 | P.DS ---
Providers Date of admission: 01/12/17 16:54 Attending physician: Leela Jackson Consults: 01/13/17 10:35 Consult Physician Routine Consulting Provider: Bhakti Ralph Consult Reason/Comments: LUNGS Do you want consulting provider notified?: Already Contacted Primary care physician: Angie [facility] Course: Patient is admitted to the hospital with the some concern for acute CVA due to slurring her words. Patient underwent an extensive workup including MRI brain is no acute infarct that was appreciated. Patient improved with clinical observation. There is some concern over patient taking excessive pain medications. Toxic encephalopathy is also in the differential diagnosis. Patient was smoking prior to admission and has a history of COPD. Is also noted to have an exacerbation of COPD on clinical evaluation. No infiltrate is appreciated on the chest x-ray. At the time of my evaluation patient appears in good spirits denies having any acute abnormalities at this time . On the day of discharge patient was able to have that it without much difficulty. Neurology recommendations were noted Physical exam Gen. appearance oriented 3 in no distress Neck is supple no JVD Lungs trace wheezing appreciated however patient was able to ambulate without significant breathing difficulty. Heart S1-S2 heard regular rate and rhythm no murmurs appreciated Abdomen is soft nontender no organomegaly bowel sounds are intact Neurologically cranial nerves II-12 grossly intact no focal motor or sensory deficits noted Skin no abnormalities appreciated Assessment and Plan Plan: acute dysarthria suspected CVA however this could also be a toxic encephalopathy from use of pain medications Acute hypoxic respiratory failure from acute exacerbation of COPD. chronic dyspnea secondary to above history of DVT and pulmonary embolism on long-term articulation with Xarelto. hyperlipidemia hypertension GERD chronic back pain with recent lumbar laminectomy and fusion schizophrenia degenerative arthritis chronic anemia. acute kidney injury, that is improved Taper of steroids and breathing treatments and smoking cessation patient is to continue all his inhalers at home patient is discharged to a rehab facility patient is to follow-up with the corn picker in a week. This was discussed with the patient and the family patient is discharged to a retirement in stable condition. At baseline patient does have a mild wheeze, as long as patient is able tolerate his breathing at rest and fibrillation this is stable for him Patient Condition at Discharge: Fair Plan - Discharge Summary New Discharge Prescriptions: Albuterol Nebulized [Ventolin Nebulized] 2.5 mg INHALATION Q6H #1 nebu oxyCODONE-APAP 10-325MG [Percocet 10-325 mg] 1 - 2 tab PO Q6H PRN #60 tab PRN Reason: Pain predniSONE 0 mg PO DIRECTED #30 tab traZODone HCL [Desyrel] 150 mg PO HS #20 tab Discharge Medication List Paliperidone [Invega] 6 mg PO DAILY 06/08/14 [History] Losartan [Cozaar] 50 mg PO DAILY 07/09/15 [History] rOPINIRole HCL [Requip] 1 mg PO HS 07/09/15 [History] Pravastatin Sodium [Pravachol] 20 mg PO HS 08/27/15 [History] Rivaroxaban [Xarelto] 20 mg PO DAILY 12/21/15 [History] Fluticasone/Salmeterol [Advair Hfa 230-21 Mcg Inhaler] 2 puff INHALATION RT-BID 12/10/16 [History] Omeprazole 20 mg PO DAILY 12/10/16 [History] Umeclidinium [place] [Incruse Ellipta] 1 puff INHALATION RT-DAILY 12/10/16 [ History] Albuterol Sulfate [Proair Hfa] 2 puff INHALATION RT-QID PRN 12/17/16 [History] Melatonin 3 mg PO HS 12/17/16 [History] Ipratropium-Albuterol Nebulize [Duoneb 0.5 mg-3 mg/3 ml Soln] 3 ml INHALATION QID #120 neb 12/21/16 [Rx] Diazepam [Valium] 5 mg PO Q8H PRN 01/12/17 [History] Metoprolol Tartrate [Lopressor] 25 mg PO DAILY 01/12/17 [History] Roflumilast [Daliresp] 500 mcg PO DAILY 01/12/17 [History] Albuterol Nebulized [Ventolin Nebulized] 2.5 mg INHALATION Q6H #1 nebu 01/16/17 [Rx] oxyCODONE-APAP 10-325MG [Percocet 10-325 mg] 1 - 2 tab PO Q6H PRN #60 tab [Rx] predniSONE 0 mg PO DIRECTED #30 tab 01/16/17 [Rx] traZODone HCL [Desyrel] 150 mg PO HS #20 tab 01/16/17 [Rx] Follow up Appointment(s)/Referral(s): Nazanin Herr MD [STAFF PHYSICIAN] - 1 Week Corey Adams MD [Primary Care Provider] - 1-2 days Patient Instructions/Handouts: Hypotension (DC) Discharge Disposition: TRANSFER TO SNF/ECF
[2017-01-16 17:04] LABS: Glucose,Whole Blood 170 mg/dL (75-99)
== END 2017-01-16 17:20 | DRG 917 ==
LOC: EC 14:48 → 6SEL 16:54 → 4MS4W 01-15 06:47
PROVIDERS: ADMIT Internal Medicine; ATTEND Internal Medicine
DX: T50.901A Poisoning by unspecified drugs, medicaments and biological substances, accidental (unintentional), initial encounter (principal); G92 Toxic encephalopathy; J96.01 Acute respiratory failure with hypoxia; N17.9 Acute kidney failure, unspecified; J44.1 Chronic obstructive pulmonary disease with (acute) exacerbation; Z99.81 Dependence on supplemental oxygen; J45.901 Unspecified asthma with (acute) exacerbation; F20.9 Schizophrenia, unspecified; I10 Essential (primary) hypertension; E78.5 Hyperlipidemia, unspecified; Z86.718 Personal history of other venous thrombosis and embolism; Z86.711 Personal history of pulmonary embolism; K21.9 Gastro-esophageal reflux disease without esophagitis; G89.29 Other chronic pain; F41.9 Anxiety disorder, unspecified; M19.91 Primary osteoarthritis, unspecified site; D64.9 Anemia, unspecified; R26.2 Difficulty in walking, not elsewhere classified; Z98.1 Arthrodesis status; Z87.891 Personal history of nicotine dependence; Z82.3 Family history of stroke; Z86.19 Personal history of other infectious and parasitic diseases; Z79.01 Long term (current) use of anticoagulants; Z79.899 Other long term (current) drug therapy; Z79.51 Long term (current) use of inhaled steroids; Z79.52 Long term (current) use of systemic steroids; Y92.009 Unspecified place in unspecified non-institutional (private) residence as the place of occurrence of the external cause
CPT/HCPCS: 36415; 70450; 70551; 71010; 80048; 80053; 80061; 82272; 82550; 82553; 83036; 83605; 84484; 85025; 85610; 85730; 87040; 93005; 93306; 93880; 94640; 94760; 95816; 96361; 96374; 99291

== ENCOUNTER → 2017-10-15 | Outpatient (CLI) | payer MEDICARE, OTHER ==
[2017-10-15 07:17] LABS: INR 1.1 (<1.2); Prothrombin Time 10.3 sec (9.0-12.0)
== END | disposition home or self-care (01) ==
LOC: LABWHC1 06:46
PROVIDERS: ATTEND Psychiatry & Neurology Neurology
DX: D65 Disseminated intravascular coagulation [defibrination syndrome] (principal)
CPT/HCPCS: 36415; 85610

== ENCOUNTER → 2017-12-06 | Outpatient (CLI) | payer MEDICARE, OTHER ==
--- NOTE | 2017-12-06 13:18 | CT ---
EXAMINATION TYPE: CT chest wo con DATE OF EXAM: 12/06/2017 COMPARISON: Chest CT July 08, 2015. Recent two-view chest x-ray November 15, 2017. HISTORY: Chronic obstructive airway disease per order. CT DLP: 231 mGycm. Automated Exposure Control for Dose Reduction was Utilized. TECHNIQUE: CT scan of the thorax is performed without IV contrast. FINDINGS: LUNGS: Mild underlying emphysematous change is redemonstrated. There is persistent posterior right ba silar scarring and/or atelectasis. There is new thin-walled cyst in the right upper lobe centrally me asuring 1.9 x 1.3 cm axial image 16 with soft tissue round nodular component inferiorly measuring 9 x 7 x 7 mm on coronal image 51 and axial image 17. Left lung is clear. No pleural effusion or pneumoth orax is seen bilaterally. MEDIASTINUM: Lack of IV contrast is noted to limit evaluation for mediastinal and especially hilar ad enopathy. There are no definitive greater than 1 cm hilar or mediastinal lymph nodes. No cardiomega ly or pericardial effusion is seen. OTHER: There is 2.5 cm low dense round lesion posteriorly in spleen with Hounsfield units averaging 1 8 felt to reflect simple cyst or other benign etiology. There is partial visualization of surgical ch demarco in the lumbar spine inferiorly. There is partial visualization of surgical change in the cervica l spine on topogram image. IMPRESSION: Mild underlying emphysematous change with new 1.9 cm thin-walled cyst or cystic lesion ce ntrally right upper lobe. Of most concern is 9 x 7 x 7 mm nodular component inferiorly. Neoplasm anthony ot be excluded. Consider short-term CT follow-up in 3-6 months time to reassess.
== END | disposition home or self-care (01) ==
LOC: RADCTMAIN 12:40
PROVIDERS: ATTEND Internal Medicine Critical Care Medicine
DX: J43.9 Emphysema, unspecified (principal); R91.1 Solitary pulmonary nodule
CPT/HCPCS: 71250

== ENCOUNTER → 2017-12-23 | Outpatient (CLI) | payer MEDICARE, OTHER ==
[2017-12-23 11:26] LABS: Basophils % (A) 0 %; Eosinophils # (A) 0.1 k/uL (0-0.7); Eosinophils % (A) 1 %; HCT 37.3 % (39.0-53.0); HGB 11.8 gm/dL (13.0-17.5); Lymphocytes # (A) 2.6 k/uL (1.0-4.8); Lymphocytes % (A) 28 %; MCH 27.3 pg (25.0-35.0); MCHC 31.8 g/dL (31.0-37.0); MCV 85.8 fL (80.0-100.0); Mean Platelet Volume 6.2; Monocytes # (A) 0.5 k/uL (0-1.0); Monocytes % (A) 5 %; Neutrophils # (A) 5.7 k/uL (1.3-7.7); Neutrophils % (A) 63 %; Platelet Count 384 k/uL (150-450); RBC 4.34 m/uL (4.30-5.90); RDW 15.2 % (11.5-15.5)
[2017-12-23 16:48] LABS: Alternaria alternata IgE <0.10 kU/L; Birch IgE <0.10 kU/L; Cat Epith & Dander IgE <0.10 kU/L; Cockroach IgE <0.10 kU/L; Dermato. farinae IgE <0.10 kU/L; Dog Dander IgE <0.10 kU/L; Elm IgE <0.10 kU/L; Maple (Box Elder) IgE <0.10 kU/L; Oak IgE <0.10 kU/L; Ragweed,Common IgE <0.10 kU/L; Red Top (Bentgrass) IgE <0.10 kU/L
== END | disposition home or self-care (01) ==
LOC: LABWHC1 10:50
PROVIDERS: ATTEND Internal Medicine Critical Care Medicine
DX: K92.2 Gastrointestinal hemorrhage, unspecified (principal)
CPT/HCPCS: 36415; 82785; 85025; 86003

== ENCOUNTER → 2019-09-04 | Outpatient (CLI) | payer MEDICARE, OTHER ==
--- NOTE | 2019-09-04 16:18 | CT ---
EXAMINATION TYPE: CT chest wo con DATE OF EXAM: 09/04/2019 COMPARISON: December 06, 2017 HISTORY: COPD Unenhanced CT of the chest was performed with lung and mediastinal window settings submitted. The la ck of contrast limits evaluation of the vascular, mediastinal and parenchymal structures including th e upper abdomen. LUNGS: Edematous bleb right upper lobe redemonstrated. Mild biapical scarring. Hyperinflation compati ble COPD. The lungs are clear and free of infiltrate. No atelectasis. No pulmonary nodule or mass is detected. No pleural effusion. No CT evidence of interstitial lung disease. Left basilar pleural t hickening. MEDIASTINUM/ISAMAR: Thoracic aorta is of normal caliber with limited evaluation given lack of contrast . The heart is not enlarged. No evidence for mediastinal mass. No lymph nodes greater than 1cm. UPPER ABDOMEN: No significant abnormality is seen. OTHER: No significant other abnormality. IMPRESSION: 1. No PD with mild biapical emphysematous change and scarring noted. No focal consolidation.
== END | disposition home or self-care (01) ==
LOC: RADCTMAIN 14:06
PROVIDERS: ATTEND Internal Medicine Critical Care Medicine
DX: J44.1 Chronic obstructive pulmonary disease with (acute) exacerbation (principal); Z88.0 Allergy status to penicillin; Z88.6 Allergy status to analgesic agent
CPT/HCPCS: 36415; 71250; 82565; 84520